=== PATIENT | male | born 1965 | race Caucasian/White ===

== ENCOUNTER 2017-10-29 14:30 | Outpatient (RCR) | payer OTHER, SELFPAY ==
--- NOTE | 2017-09-25 07:30 | PTTR_ITS ---
DATE: September 25, 2017 SUBJECTIVE: Santino is concerned because he has heard gossip and shared some discussions with his co-workers that he is going to be fired, because he is not getting back to work in time. He is wanting a 2nd orthopedic opinion as he does not feel he is being hurried along enough. He does state he does continue to have a fair amount of pain, but decreasing at night. He is walking as much as he can, but is taking some days off to cut back, to see if this influences his pain as I had suggested. OBJECTIVE: Patient Education: Reassured Santino that his progress is steady, it is appropriate, I felt that one ortho to another would agree. I reassure him that it takes time for a body to heal and there is no way to speed that up. 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 In any event, I do re-assure him that he is not in any physical condition to be carrying out the laborious duties of his job, but it certainly will be our goal to get him to that point. Manual therapy: ([id number]). Mobilized the R knee into end range flexion in open chain with grade 4 oscillations. Hamstring MET in conjunction with soft tissue mobilization along the medial knee, and distal medial quad, otherwise no further treatment performed by myself due to our discussion as above. Complete extension over pressure in LAQ position, have patient hold at end range for 10 secs after each oscillation for terminal knee extension control. GAIT: Ambulating with antalgia, decreased stance through the R LE, R trunk lean during R stance. He can toe and heel walk, however very well without hand held assist. I feel his gait is more due to his anxiety. He is ten seen by Tomasa Gracia PTA for Therex portion per my direction. Direct treatment time: 15 mins, ROM is 0 to 100 degrees. Total treatment time: 30 mins JH/dl
--- NOTE | 2017-09-30 08:00 | PTTR_ITS ---
DATE: September 30, 2017 SUBJECTIVE: Santino stating that his knee is feeling more stiff today. He is anticipating that his motion will be less. He seems less stress about his job, he is awaiting for his appt with Dr. Pablo mid September to have a formal letter provided to HR. Manual therapy: ([id number]). R knee flexion oscillations in seated position, grade 4+. Achieved 115 degrees of flexion today, remains 0 degrees extension easily. Therapeutic procedures ([id number]). * x See flow sheet: * x Provided skilled instruction in proper exercise performance: * x Provided skilled manual cues to facilitate proper muscle recruitment and/ or movement pattern: began step up and step down activities today and more close chain tasks with cueing for proper performance. Direct treatment time: 30 mins Total treatment time: 30 mins, continued care with Kemi Ivey PTA for remainder of his Therex routine per my direction (see her note) A: Great gains made today. Initially struggled with stairclimbing type activities, but with my cues and instruction he quickly built up confidence and had improved performance post treatment. I think this was a big step forward for him, and he is beginning to see he is moving in a forward direction. P: Proceed 3x a week for mobilization of R knee and strengthening efforts with progression of functional tasks as tolerated, and within pain tolerance. KRISTIN/priscila
--- NOTE | 2017-09-30 09:14 | PTTR_ITS ---
DATE: 09/30/17 OBJECTIVE: Co treatment with KRISTEL Bhatia. Please see her note for details. Therapeutic procedures ([id number]). * X See flow sheet: Progressed pt in LE strength and conditioning program. Included new core exercises per PT instruction to increase pt's functional movement and balance. * X Provided skilled instruction in proper exercise performance: Pt requires max verbal cueing when adding new exercise movements to program to ensure good form. * X Provided skilled manual cues to facilitate proper muscle recruitment and/ or movement pattern: Pt requires min tactile cueing on new exercises. * X Other: Vitals taken at end of session and recorded on flow sheet. Pt reports that his doctor would like us to begin monitoring vitals at start and end of each session due to some concern of possible HTN. Pt continued conditioning exercises under Wellness program, supervised by ehr trainer x15 minutes. Direct treatment time: 30 minutes Total treatment time: 45 minutes
--- NOTE | 2017-10-02 13:24 | PTTR_ITS ---
DATE: 10/02/17 OBJECTIVE: Co-treatment with KRISTEL Bhatia. Please see her note for specifics. Therapeutic procedures ([id number]). * X See flow sheet: For progressive LE strengthening to tolerance. Progress quad strengthening and squatting within his tolerance. He does complain of some knee discomfort with step ups and deeper squats although no discomfort through the quadriceps itself. * X Provided skilled instruction in proper exercise performance: * X Provided skilled manual cues to facilitate proper muscle recruitment and/ or movement pattern: * X Other: Ends program via wellness program. Direct treatment time: 30 minutes Total treatment time: 60 minutes Kemi Ivey, PHARMACEUTICAL SCIENTIST
--- NOTE | 2017-10-02 14:46 | PTTR_ITS ---
DATE: 10/02/17 SUBJECTIVE: Pt reports that he has had no pain increase following progressions last visit. He has been walking up to 2 miles per day on the [place] [employer] [place]. OBJECTIVE: Manual therapy: ([id number]). Seated flexion oscillations utilizing distraction and hamstring grade 4 to 4+. End range extension over pressure with pt initially having a difficult time with TKE. I complete some patella femoral mobilizations all planes for mechanoreceptor stimulation and he is able to per TKE without difficulty with minimal shaking. Prone knee bend quad stretching reaching about 90* of this position. Flexion ROM is 0-117*. Direct treatment time: 23 minutes Total treatment time: 23 minutes and then seen by Kemi Ivey PTA please refer to her note for specifics.
--- NOTE | 2017-10-05 08:57 | PTTR_ITS ---
DATE: 10/05/17 SUBJECTIVE: Santino is now walking up to 5 miles at a time for exercise, on uneven terrain. He continues to have pain at night time, but dissipating. He has been working on his stepups at home, but continues to struggle with general stair ambulation. OBJECTIVE: KX applied to all codes N/A Manual therapy: ([id number]): R knee flexion oscillations in seated position, grade 4+ R PF mobilizations all planes, followed by eccentric LAQ x 10, 0# R PKB prolonged stretching. HEP Reviewed lunge knee flexion stretch, utilizing chair or step. He was then seen by Tomasa Gracia PTA per my direction - see her note. Direct treatment time: 20 minutes Total treatment time: 20 minutes
--- NOTE | 2017-10-05 09:25 | PTTR_ITS ---
DATE: 10/05/17 OBJECTIVE: Co Treatment with PT Maritza Colin Therapeutic procedures ([id number]). * X Provided skilled instruction in proper exercise performance: Direct treatment time: Pt completed functional sit to stands without the use of his hands, open and closed chain LE strengthening, glute strengthening, SLS activities,wobble board, and cardio as per flow sheet. Pt's vitals were taken please see flow sheet for specifics. Total treatment time: 30 billable 60 total.
--- NOTE | 2017-10-07 08:36 | PTTR_ITS ---
DATE: 10/07/17 OBJECTIVE: Co Treatment with PT Maritza Colin Therapeutic procedures ([id number]). * X Provided skilled instruction in proper exercise performance: Pt completed open and closed chain LE strengthening, light proprioceptive ther ex, glute strengthening, lifting techniques with the weighted box, core stabilization, and cardio on the mini stepper/treadmill/Nu Step. Pt was able to tolerate a slight increase in his program today. Vitals were taken post session please see flow sheet for specifics. Direct treatment time: 30 Total treatment time: 60
--- NOTE | 2017-10-07 10:26 | PTTR_ITS ---
DATE: 10/07/17 SUBJECTIVE: No major complaints. Would like to have rock tape reapplied as this makes him feel more stable and reduces pain. He is ascending stairs reciprocally, coming down is more difficult, going one step at a time, using rail. OBJECTIVE: KX applied to all codes N/A Manual therapy: ([id number]). Seated R knee flexion oscillations, grade 4++ PF mobilizations all planes, grade 4++, which then allow for pain reduction with mobilization. Prolonged PKB Rock tape application R knee Therapeutic procedures ([id number]). * HEP review: * x See flow sheet: Continued completion with Tiffanie Gracia PTA per my direction , see her note. * x Provided skilled instruction in proper exercise performance: * x Provided skilled manual cues to facilitate proper muscle recruitment and/ or movement pattern: [] * [] Other: [] ROM: 0-120* Direct treatment time: 30 minutes Total treatment time: 30 minutes
--- NOTE | 2017-10-09 09:23 | PTTR_ITS ---
DATE: 10/09/17 SUBJECTIVE: Pt reports that he is sore from last session and thinks that he over did it on the treadmill. OBJECTIVE: Manual therapy: (70913v6). Pt received mobilization to the patella and was able to achieve 0 degrees knee ext. Pt while seated received mobilization to the knee into knee flexion. Pt was able to achieve 119 degrees knee flex after mobilization was performed. Pt was also mobilized into knee flexion while in the prone position. Pt received rock taping as per previous sessions. Therapeutic procedures ([id number]). * X Provided skilled instruction in proper exercise performance: Pt completed open and closed chain LE strengthening, glute strengthening, core stabilization, light proprioceptive ther ex, and cardio with the wellness. Pt was advised to not be as aggressive on the treadmill today. Direct treatment time: 45 Total treatment time: 60
--- NOTE | 2017-10-12 08:35 | PTTR_ITS ---
DATE: 10/12/17 SUBJECTIVE: Santino reporting that he tripped and landed on his hyperextended R knee on Thursday. He think he needs to go to the hospital, and has really hurt his knee. He has pain increase along the medial knee, of a 10/10. He has been able to walk on it, and function since the incident on Thursday, but has held off on long distance walking because of fear. He will have a follow up with Dr. Pablo on Thu. OBJECTIVE: KX applied to all codes N/A Gait: Minimally antalgic, walked at high speed upon request, with just hesitation. Toe and heel walk WNL. Functional movements: Deep squat, unweighted, with good ROM, no compensatory movements, no pain. R SL step up, with moderate UE assist. Sit to stand, no hands, WNL. Manual therapy: ([id number]). R knee flexion overpressure at end range, achieving 120*. Extension remains at 0 *. PF mobilization all planes for pain desensitization, as well as medial compartment desensitization. Demonstrates ability to due full terminal knee extension, with no indication of quad injury. No palpable quad disruption. Has excellent R quad recruitment, with visual muscle bulk, but less girth then the left side. No swelling, no increase in temperature. Transition from extension to flexion and vice versa, without difficulty. Therapeutic procedures ([id number]). * HEP review: * x See flow sheet: Progressed to include more deep squatting (unweighted) and SL step ups, to work toward gaining functional performance for pre for return to work. His program was finished with Tomasa Gracia PTA, per my directions. See her note for specifics. Direct treatment time: 30 minutes Total treatment time: 30 minutes Assessment: Explains hyperextension strain to the R knee, but without any clinical findings of further trauma of injury to the R knee. Patient's anxiety got the best of him, with fear of further of injury to the knee making him quite unsettled this morning. However, after clinical exam, I reassured him he was fine, and continuing to progress forward, which did allow patient to calm down. It is appropriate to continue progress ther ex at this point, with higher level activities, to include CKC squatting, step ups, proprioceptive activities , and CKC weight lifting for occupational preparation - per the clearance of Dr. Pablo on Thu. I also suggest work conditioning program, as soon as appropriate. Plan: 3x/week, per above ther ex plan, and continued end range flexion mobilization to regain full flexion, to insure full functional capabilities.
--- NOTE | 2017-10-12 09:37 | PTTR_ITS ---
DATE: 10/12/17 OBJECTIVE: This is a co tx with PT Sosa Colin please refer to her note for specifics. Therapeutic procedures ([id number]). Consisting of a therapeutic exercise program with open and closed chain LE strengthening, glute strengthening, sit to stand with deep squat and core stabilization activities and pt completed his cardiovascular exercise with the wellness with Christian. Direct treatment time: 30 minutes Total treatment time: 60 minutes
--- NOTE | 2017-10-14 10:25 | PTTR_ITS ---
DATE: 10/14/17 SUBJECTIVE: Santino feels his discomfort has decreased since the hyper extension strain he reported last session. He has returned to baseline, and is anxious for his appointment with Dr. Pablo today. Patient complains of his low back feeling strained, and some hip weakness after prolonged walking. He is walking to accommodate his right knee weakness. OBJECTIVE: ROM: 0 to 120 today Accessory motion: WNL and non irritable Gait: Minimally antalgic Observation: The patient is putting forth great effort. Manual therapy: ([id number]). Right knee flexion oscillations seated at edge of [facility] utilizing IASTM down regulation to the right quadriceps. Patellofemoral mobilizations all planes. Prone knee bend prolonged stretch. Instructed in lumbar and hip stretches, hamstring and calf stretches to accommodate the stiffness he has post walking. Therapeutic procedures ([id number]). * x See flow sheet: * Provided skilled cueing for proper exercise performance and progression of activities. Direct treatment time: 60 minutes Total treatment time: 60 minutes Assessment: The patient is progressing nicely. He is demonstrating whole body stability control, improved control of his right quadriceps, certainly so with more eccentric and proprioceptive type activities, as would be expected at this point. Will progress with his strengthening to his tolerance pending results of today' s appointment with Dr. Pablo. Plan: 3x per week for right knee mobilizations and strengthening progressing to Work Conditioning if this is requested. KRISTIN/allison
--- NOTE | 2017-10-16 08:41 | PTTR_ITS ---
DATE: 10/16/17 OBJECTIVE: Co-treatment with primary therapist, KRISTEL Bhatia. Please see her note for specifics. Therapeutic procedures ([id number]). * [X] See flow sheet: Patient completed a LE strengthening and stabilization program, as per flow sheet. Patient tolerated a progression in his program today with good tolerance. Incorporated single leg activities to facilitate stabilization throughout R knee, and enhance proprioceptive ability. Also incorporated lifting activities from low surfaces, with a focus on appropriate body mechanics and lifting techniques, as well as loading of R knee for strengthening. Vitals were taken pre and post exercise and recorded on the flow sheet. Patient completed the remainder of his ther ex program via Wellness Program under certified personal trainer supervision. * [X] Provided skilled instruction in proper exercise performance * [X] Provided skilled manual cues to facilitate proper muscle recruitment and/or movement pattern Direct treatment time: 35 minutes Total treatment time: 60 minutes
--- NOTE | 2017-10-16 08:56 | PTTR_ITS ---
DATE: 10/16/17 SUBJECTIVE: Will be returning to work, light duty, on Thursday per clearance of Dr. Pablo. Santino states was happy with his progress, but would prefer that he had more flexion at this point. Wants him to continue with PT efforts as he returns to work. He is able to walk, stand and sit unlimited, occasional climbing, and infrequently lift 100#. 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 In regards to his knee, he has minimal complaints today. OBJECTIVE: KX applied to all codes N/A Manual therapy: ([id number]). R knee flexion oscillations in 90/90 position and sitting at edge of plinth, grade 4++. PKB prolonged stretch, instruct patient in self PKB using strap. PF mobs. ROM: 0-125* He was then see by Jana Valentine PTA for ther ex portion of treatment per my direction. Assessment: ROM increased. Patient please with return to work status. Direct treatment time: 15 minutes Total treatment time: 15 minutes Plan: Per POC
--- NOTE | 2017-10-20 15:46 | PTTR_ITS ---
DATE: 10/20/17 SUBJECTIVE: Santino stating his knee feels a little fatigued and sore from going back to work. He is on work restrictions that are appropriate. OBJECTIVE: Manual therapy: ([id number]). TF joint mobs performed in seated position with legs over the edge of the plinth. Stretching into knee flexion to his tolerance. 90/90 stretching into knee flexion to 127 degrees. Patellar glides performed. Therapeutic procedures ([id number]). * X See flow sheet: For LE strength and conditioning focusing on quad strengthening, SLS and proprioceptive re-training and core stabilization. Add in mini lunges x 10 reps each with fatigue noted. * X Provided skilled instruction in proper exercise performance: * X Provided skilled manual cues to facilitate proper muscle recruitment and/ or movement pattern: * X Other: Ends with cardiovascular activities via hop strainer supervision. Vitals taken and recorded on flow sheet. Direct treatment time: 45 minutes Total treatment time: 75 minutes Kemi Ivey, DIRECTOR OF OCCUPATIONAL HEALTH
--- NOTE | 2017-10-23 16:14 | PTTR_ITS ---
DATE: 10/23/17 SUBJECTIVE: Pt reports that his knee has been sore this week since he is back to work. He reports that he is going to be working this weekend as well and it does not look like he is going to get a day off so it is a little much for the first week back. OBJECTIVE: Manual therapy: ([id number]). Pt received tibial femoral and patella femoral joint mobilization to the involved LE. Pt receive stretching into knee flexion while seated, supine, and prone. Pt was able to achieve approx 130 while supine. Pt received hamstring stretching. Therapeutic procedures ([id number]). * X Provided skilled instruction in proper exercise performance: Pt completed open and closed chain LE strengthening, glute strengthening, core stabilization ther ex, SLS activities vs airex, and cardio on the treadmill. We D/C the Nu Step due to it not being challenging anymore. Pt was fatigued after today's session. Direct treatment time: 45 Total treatment time: 55
--- NOTE | 2017-10-26 11:15 | NT_ITS ---
10/26/17 No showed for today's scheduled appt. KRISTIN/channing
--- NOTE | 2017-10-29 15:22 | PTTR_ITS ---
DATE: 10/29/17 SUBJECTIVE: Pt reports that they are really under staffed at work and he hasn' t had a day off yet. Pt reports that his knee is really sore. OBJECTIVE: Manual therapy: ([id number]). Pt received tibial femoral and patella femoral joint mobilization to the involved LE. Pt received ROM into knee flexion in both seated and supine positions. Pt was able to achieve 124 degrees knee flexion and 0 degrees knee extension. Therapeutic procedures ([id number]). * X Provided skilled instruction in proper exercise performance: Pt completed open and closed chain LE strengthening, glute strengthening, functional sit to stands, SLS activities, and cardio on the treadmill. Pt did require vc's for correction of his mechanics with his ther ex. Direct treatment time: 45 Total treatment time: 60
== END 2017-10-30 23:59 | disposition home or self-care (01) ==
LOC: PT 14:30
PROVIDERS: PCP Family Medicine; Referring Provider Orthopaedic Surgery; Visit Provider Orthopaedic Surgery
DX: S76.111D Strain of right quadriceps muscle, fascia and tendon, subsequent encounter (principal)
CPT/HCPCS: 97110; 97140

== ENCOUNTER 2017-12-16 21:26 | Emergency (ER) | payer OTHER, SELFPAY ==
[2017-12-16] VITALS (21 sets, daily range): BP systolic 95–118; BP diastolic 52–73; PULSE 89–128; RESP 8–23; TEMP 36.2–37.3; O2SAT 93–99
--- NOTE | 2017-12-16 21:41 | W.ED.GENAD ---
Discharge Plan Disposition Patient Disposition: HOME Condition: Stable Discharge Details Chief Complaint: Chest Pain Clinical Impression: Gastroenteritis, Dehydration, Pain, upper back Primary Care Provider: Rajwinder Garcia ED Provider: Jared Conroy Home Meds and New Rx's Prescriptions: New cyclobenzaprine 10 mg tablet 10 mg PO TID PRN (Reason: muscle spasm) Qty: 20 RF: 0 ondansetron 4 mg tablet,disintegrating 4 mg PO TID PRN (Reason: nausea and vomiting) 5 Days Qty: 14 RF: 0 Continue ibuprofen 800 MG tablet 800 mg PO TID Qty: 60 RF: 1 lisinopril 10 MG tablet 20 mg PO DAILY RF: 0 Discharge Instructions Instructions: Dehydration (ED), Gastroenteritis (ED) Additional Instructions: follow up with your primary care provider next week and have your kidney function rechecked make sure you are drinking plenty of fluids to stay hydrated if you have persistent vomit or severe worsening pain or difficulty breathing return to the emergency department Discharge Data Discharge Physician: Jared Conroy Medical Decision Making 52 yo male who has a hx of htn comes in with 4 days of upper abdominal pain and n/v along with diarrhea, and today luq pain and posterior thoracic pain. He states it feels as though his muscles are spasming. Denies fevers or recent travel. Is noted on exam to be tachycardic. ECG nondiagnostic, heart score is 2, will send troponin. Will also obtain imaging to eval for PE vs dissection vs sbo as cause of his symptoms. HE is asking for meds for anxiety and appears anxious so will provide this while studies are pending pt feels much better after ativan, still has some mild upper back pain, awaiting labs and imaging labs show wbc of 24 and chrissy. His CTA shows no acute findings, has borderline thoracic aneurysm without dissection and contacted gallbladder, has no pain in the ruq on exam and denies any abdominal pain now. He still has mild upper back pain. Given length of time with symptoms do not feel additional troponin indicated. I suspect given his n/v/d he could have had a gastroenteritis which led to his leukocytosis and dehydration. He is now drinking and eating without symptoms and has no pain in the abodmen or chest. Will dc home and advised f/u with pcp and have his renal function rechecked next week Differential Diagnosis sbo, acs, pe, dissection, hepatitis ECG Data Attestation: I personally reviewed and interpreted this ECG (s) as follows: Prior ECG tracings: available for review Interpretation: sinus tachycardia, rate of 121, pr normal at 130, no acute ischemic findings HPI General Mode of arrival: ambulatory. Date/Time Provider Initiated Documentation: 12/16/17 21:28. Limitations to Documentation: no limitations. Information obtained by: patient. History of Present Illness 52 year old M presents to the emergency department with the chief complaint of abdominal pain, described as moderate, Quality is described as stabbing, and is localized to the abdomen. Patient reports radiation to back. Patient started experiencing this hour(s) (6) No relieving factors improve symptom(s), No exacerbating factors reported . Patient notes no other symptoms.. Patient did receive the following treatments prior to arrival, none Related Data Home Medications Medication Instructions Recorded Confirmed lisinopril 20 mg PO DAILY 07/21/16 12/16/17 ibuprofen 800 mg PO TID #60 tab-cap 07/16/17 12/16/17 cyclobenzaprine 10 mg PO TID PRN #20 tab 12/16/17 ondansetron 4 mg PO TID PRN 5 Days #14 tab 12/16/17 Previous Rx's Medication Instructions Recorded cyclobenzaprine 10 mg PO TID PRN #20 tab 12/16/17 ondansetron 4 mg PO TID PRN 5 Days #14 tab 12/16/17 Allergies Allergy/AdvReac Type Severity Reaction Status Date / Time No Known Allergies Allergy Unverified 12/16/17 21:39 General Stated Complaint: Chest Pain MARKO: 2 Review of Systems Review of Systems All systems reviewed & are unremarkable except as noted in HPI and below Constitutional Denies chills, Denies fever(s) and Denies weakness Eyes Denies loss of vision ENT Denies change in voice Cardiovascular Denies dyspnea Respiratory Denies dyspnea Gastrointestinal Reports abdominal pain and Reports vomiting Genitourinary Denies dysuria Musculoskeletal Denies joint swelling Integumentary/Breasts Denies rash Neurologic Denies loss of vision and Denies weakness Psychiatric Denies depression Endocrine Denies cold intolerance and Denies heat intolerance Allergic/Immunologic Reports urticaria [facility] Medical History Anxiety Aortic stenosis Constipation Foot pain HTN (hypertension) Heart murmur, systolic Hx of adenomatous colonic polyps Jaw pain Obesity Palpitations Prediabetes Quadriceps tendon rupture Rectal bleeding Tinea pedis Social History Smoking/Tobacco Use Status: Never Surgical History Tonsillectomy Exam Const General: anxious Orientation: alert HENMT Head: normal to inspection Ears: external ears normal General nose exam: external nose normal Mouth: moist mucous membranes Eyes General: appearance normal, both eyes and all related structures Neck Neck: normal visual inspection Resp Effort & Inspection: normal respiratory effort and able to speak in complete sentences Cardio Rate: regular rate Skin General skin exam: no rashes or lesions noted Neuro General: alert and oriented x3 Extrem General: normal to inspection Psych Mental Status: mental status grossly normal Course Vital Signs Temperature 36.2 C L 12/16/17 21:32 Pulse 121 H 12/16/17 21:32 Respiratory Rate 22 12/16/17 21:32 Blood Pressure 106/62 12/16/17 21:32 Pulse Oximetry 96 12/16/17 21:32 Temperature 36.2 C L 12/16/17 21:32 Temperature Source Temporal Artery Scan 12/16/17 21:32 Pulse 121 H 12/16/17 21:32 Respiratory Rate 22 12/16/17 21:32 Respiratory Effort 12/16/17 21:37 Blood Pressure 106/62 12/16/17 21:32 Pulse Oximetry 96 12/16/17 21:32 Oxygen Delivery Method Room Air 12/16/17 21:32 Oxygen Flow Rate 0 12/16/17 21:32
--- NOTE | 2017-12-16 21:46 | ED.GENADUL_ITS ---
Discharge Plan Disposition Patient Disposition: HOME Condition: Stable Discharge Details Chief Complaint: Chest Pain Clinical Impression: Gastroenteritis, Dehydration, Pain, upper back Primary Care Provider: Rajwinder Garcia ED Provider: Jared Conroy Home Meds and New Rx's Prescriptions: New cyclobenzaprine 10 mg tablet 10 mg PO TID PRN (Reason: muscle spasm) Qty: 20 RF: 0 ondansetron 4 mg tablet,disintegrating 4 mg PO TID PRN (Reason: nausea and vomiting) 5 Days Qty: 14 RF: 0 Continue ibuprofen 800 MG tablet 800 mg PO TID Qty: 60 RF: 1 lisinopril 10 MG tablet 20 mg PO DAILY RF: 0 Discharge Instructions Instructions: Dehydration (ED), Gastroenteritis (ED) Additional Instructions: follow up with your primary care provider next week and have your kidney function rechecked make sure you are drinking plenty of fluids to stay hydrated if you have persistent vomit or severe worsening pain or difficulty breathing return to the emergency department Discharge Data Discharge Physician: Jared Conroy Medical Decision Making 52 yo male who has a hx of htn comes in with 4 days of upper abdominal pain and n/v along with diarrhea, and today luq pain and posterior thoracic pain. He states it feels as though his muscles are spasming. Denies fevers or recent travel. Is noted on exam to be tachycardic. ECG nondiagnostic, heart score is 2 , will send troponin. Will also obtain imaging to eval for PE vs dissection vs sbo as cause of his symptoms. HE is asking for meds for anxiety and appears anxious so will provide this while studies are pending pt feels much better after ativan, still has some mild upper back pain, awaiting labs and imaging labs show wbc of 24 and chrissy. His CTA shows no acute findings, has borderline thoracic aneurysm without dissection and contacted gallbladder, has no pain in the ruq on exam and denies any abdominal pain now. He still has mild upper back pain. Given length of time with symptoms do not feel additional troponin indicated. I suspect given his n/v/d he could have had a gastroenteritis which led to his leukocytosis and dehydration. He is now drinking and eating without symptoms and has no pain in the abodmen or chest. Will dc home and advised f/u with pcp and have his renal function rechecked next week Differential Diagnosis sbo, acs, pe, dissection, hepatitis ECG Data Attestation: I personally reviewed and interpreted this ECG (s) as follows: Prior ECG tracings: available for review Interpretation: sinus tachycardia, rate of 121, pr normal at 130, no acute ischemic findings HPI General Mode of arrival: ambulatory . Date/Time Provider Initiated Documentation: 12/16/17 21:28 . Limitations to Documentation: no limitations . Information obtained by: patient . History of Present Illness 52 year old M presents to the emergency department with the chief complaint of abdominal pain, described as moderate, Quality is described as stabbing, and is localized to the abdomen. Patient reports radiation to back. Patient started experiencing this hour(s) (6) No relieving factors improve symptom(s) , No exacerbating factors reported . Patient notes no other symptoms.. Patient did receive the following treatments prior to arrival, none Related Data Home Medications Medication Instructions Recorded Confirmed lisinopril 20 mg PO DAILY 07/21/16 12/16/17 ibuprofen 800 mg PO TID #60 tab-cap 07/16/17 12/16/17 cyclobenzaprine 10 mg PO TID PRN #20 tab 12/16/17 ondansetron 4 mg PO TID PRN 5 Days #14 tab 12/16/17 Previous Rx's Medication Instructions Recorded cyclobenzaprine 10 mg PO TID PRN #20 tab 12/16/17 ondansetron 4 mg PO TID PRN 5 Days #14 tab 12/16/17 Allergies Allergy/AdvReac Type Severity Reaction Status Date / Time No Known Allergies Allergy Unverified 12/16/17 21:39 General Stated Complaint: Chest Pain MARKO: 2 Review of Systems Review of Systems All systems reviewed & are unremarkable except as noted in HPI and below Constitutional Denies chills, Denies fever(s) and Denies weakness Eyes Denies loss of vision ENT Denies change in voice Cardiovascular Denies dyspnea Respiratory Denies dyspnea Gastrointestinal Reports abdominal pain and Reports vomiting Genitourinary Denies dysuria Musculoskeletal Denies joint swelling Integumentary/Breasts Denies rash Neurologic Denies loss of vision and Denies weakness Psychiatric Denies depression Endocrine Denies cold intolerance and Denies heat intolerance Allergic/Immunologic Reports urticaria [facility] Medical History Anxiety Aortic stenosis Constipation Foot pain HTN (hypertension) Heart murmur, systolic Hx of adenomatous colonic polyps Jaw pain Obesity Palpitations Prediabetes Quadriceps tendon rupture Rectal bleeding Tinea pedis Social History Smoking/Tobacco Use Status: Never Surgical History Tonsillectomy Exam Const General: anxious Orientation: alert HENMT Head: normal to inspection Ears: external ears normal General nose exam: external nose normal Mouth: moist mucous membranes Eyes General: appearance normal, both eyes and all related structures Neck Neck: normal visual inspection Resp Effort & Inspection: normal respiratory effort and able to speak in complete sentences Cardio Rate: regular rate Skin General skin exam: no rashes or lesions noted Neuro General: alert and oriented x3 Extrem General: normal to inspection Psych Mental Status: mental status grossly normal Course Vital Signs Temperature 36.2 C L 12/16/17 21:32 Pulse 121 H 12/16/17 21:32 Respiratory Rate 22 12/16/17 21:32 Blood Pressure 106/62 12/16/17 21:32 Pulse Oximetry 96 12/16/17 21:32 Temperature 36.2 C L 12/16/17 21:32 Temperature Source Temporal Artery Scan 12/16/17 21:32 Pulse 121 H 12/16/17 21:32 Respiratory Rate 22 12/16/17 21:32 Respiratory Effort 12/16/17 21:37 Blood Pressure 106/62 12/16/17 21:32 Pulse Oximetry 96 12/16/17 21:32 Oxygen Delivery Method Room Air 12/16/17 21:32 Oxygen Flow Rate 0 12/16/17 21:32
[2017-12-16] MEDS: LORazepam 2 MG/ML VIAL 0.5 MG IVP (21:55)
[2017-12-16 21:56] LABS: Abs Immature Grans 0.26 k/cumm (0.0-0.09); HCT 44.7 % (40.0-50.0); HGB 16.2 g/dL (13.5-17.5); Mean Corp. HGB Concentration 36.2 g/dL (32.0-36.0); Mean Corpuscular Hemoglobin 30.4 pg (27.0-33.0); Mean Corpuscular Volume 83.9 fL (80-95); Mean Platelet Volume 11.4 fL (8.0-11.0); Platelet Count 224 x1000/uL (130-400); RBC 5.33 m/cumm (4.50-6.00); RBC Distribution Width 13.8 % (11.8-14.1); White Blood Cell Count 24.02 k/cumm (4.4-10.8)
[2017-12-16] MEDS: Normal Saline 1,000 ML 1000 ML IV ×2 (21:57→22:49)
[2017-12-16] MEDS: Omnipaque 350 MG/ML 100 ML BTL IJ (22:15)
[2017-12-16 22:30] LABS: ALT 37 U/L (12-78); AST 17 U/L (15-37); Albumin 4.3 g/dL (3.4-5.0); Alkaline Phosphatase 95 U/L (46-116); Anion Gap 16.3 mmol/L (3-11); BUN 28 mg/dL (7-18); Bilirubin, Direct 0.19 mg/dL (0.00-0.20); Bilirubin, Total 0.9 mg/dL (0.2-1.0); CO2 22.7 mmol/L (21.0-32.0); CREATININE 3.22 mg/dL (0.70-1.30); Calcium 9.6 mg/dL (8.5-10.1); Chloride 98 mmol/L (98-107); Estimated GFR 20.27 (mL/min/1.73m2); Glucose 140 mg/dL (70-100); Lipase 140 U/L (73-393); Magnesium 1.6 mg/dL (1.8-2.4); Potassium 3.4 mmol/L (3.5-5.1); Sodium 137 mmol/L (136-145); Total Protein 7.5 g/dL (6.4-8.2)
--- NOTE | 2017-12-16 22:30 | DI.CT_ITS ---
SYMPTOM/DIAGNOSIS: CHEST AND ABD PAIN, ? DISSECTION CTA CHEST, ABDOMEN AND PELVIS: CT angiography was performed with multi slice acquisition and multi planar and 3D reconstruction . CHEST: The study was carried out with an intravenous administration of 125 cc' s of Omnipaque 350. There is no evidence of PE. There is borderline ascending thoracic aortic dilatation measuring perhaps 4 by 3.9 cm. without evidence of dissection. There are regions of bibasilar pulmonary atelectasis. No infiltrate or mass is seen. There is no pneumothorax or pleural effusion. The heart is not enlarged. No acute bony abnormality is seen. The soft tissues are unremarkable. There is no evidence of lymphadenopathy. ABDOMEN AND PELVIS: The study was carried out with an intravenous administration of 125 cc's of Omnipaque 350. There is no evidence of an abdominal aortic aneurysm or dissection. The abdominal vasculature appears to be intact with incidental note made of common origin of the celiac and superior mesenteric artery. The renal arteries appear unremarkable. The iliac arteries are unremarkable. There is no evidence of occlusion or stenosis involving the common femoral arteries. A fatty liver is identified. The gallbladder wall is mildly thickened however the gallbladder is only minimally distended and appears to be partially contracted. There is no evidence of biliary dilatation. The pancreas and spleen are unremarkable. The adrenals are normal. The kidneys are normal. The stomach and bowel appear intact. There is no evidence of obstruction or mucosal thickening. There is nothing to suggest an acute appendix. The bladder is incompletely distended but appears grossly normal. The reproductive organs as visualized are intact. There is no evidence of free air or free fluid in the intraperitoneal space. There is no evidence of an acute bony abnormality. The soft tissues are unremarkable. There is no lymphadenopathy. SUMMARY: No evidence of an abdominal aortic aneurysm or dissection. Note is made of questionable thickening of the gallbladder wall. No stones or ductal dilatation is identified. If clinically appropriate, the patient could be further evaluated with ultrasound.
[2017-12-16 22:33] LABS: Troponin I < 0.02 ng/mL (0.00-0.06)
[2017-12-16 22:40] LABS: Diff Comment Diff Reviewed
[2017-12-16 22:41] LABS: Absolute Lymphocyte Count 4.08 k/cumm (1.2-3.4); Absolute Monocyte Count 2.16 k/cumm (0.11-0.7); Absolute Neutrophil Count 17.77 k/cumm (1.2-6.7); Atypical Lymphocytes % 7; RBC Morphology Normal
[2017-12-16 22:54] LABS: INR 1.1 (1.0-3.5); Prothrombin Time 10.4 sec (9.3-10.8)
--- NOTE | 2017-12-16 23:07 | DI.VRAD_ITS ---
EXAM: CT Angiography Chest With Intravenous Contrast EXAM DATE/TIME: 12/16/2017 9:38 PM CLINICAL HISTORY: 52 years old, male; Pain; Chest pain; Type not specified; Abdominal pain; Acute; Patient HX: HX of aortic stenosis and HTN TECHNIQUE: Axial computed tomographic angiography images of the chest with intravenous contrast using CT angiography protocol. Coronal and sagittal reformatted images were created and reviewed. MIP reconstructed images were created and reviewed. CONTRAST: 125 ml of Omnipaque 350 administered intravenously. COMPARISON: No relevant prior studies available. FINDINGS: Pulmonary arteries: Normal. No pulmonary emboli. Aorta: Borderline ascending thoracic aortic aneurysm measures 4 x 3.9 cm without dissection. Lungs: Basilar dependent pulmonary atelectasis is present.. No consolidation. No masses. Pleural space: Normal. No pneumothorax. No pleural effusion. Heart: Normal. No cardiomegaly. No pericardial effusion. Bones/joints: Unremarkable. No acute fracture. Soft tissues: Unremarkable. Lymph nodes: Unremarkable. No enlarged lymph nodes. IMPRESSION: Borderline ascending thoracic aortic aneurysm measures 4 x 3.9 cm without dissection. EXAM: CT Angiography Abdomen and Pelvis With Intravenous Contrast EXAM DATE/TIME: 12/16/2017 9:38 PM CLINICAL HISTORY: 52 years old, male; Pain; Chest pain; Type not specified; Abdominal pain; Acute; Patient HX: HX of aortic stenosis and HTN TECHNIQUE: Axial computed tomographic angiography images of the abdomen and pelvis with intravenous contrast material, including non-contrast images if performed. MIP and/or 3D reconstructed images were created and reviewed. Coronal and sagittal reformatted images were created and reviewed. MIP reconstructed images were created and reviewed. CONTRAST: 125 ml of Omnipaque 350 administered intravenously. COMPARISON: No relevant prior studies available. FINDINGS: Lungs: Normal. No consolidation. VASCULATURE: Aorta: No evidence for abdominal aortic aneurysm or dissection. Celiac Trunk and Mesenteric Arteries: Incidental note made of common origin of the celiac and SMA Renal Arteries: No occlusion or significant stenosis. Iliac Arteries: No occlusion or significant stenosis. Common Femoral Arteries: No occlusion or significant stenosis. ABDOMEN: Liver: Hepatic steatosis is present. Gallbladder and bile ducts: The gallbladder wall is mildly thickened however the gallbladder is normal minimally distended, likely reflecting partial contraction. If right upper quadrant symptoms are present sonography is recommended. Pancreas: Unremarkable. No mass. No ductal dilation. Spleen: Unremarkable. No splenomegaly. Adrenals: Unremarkable. No mass. Kidneys and ureters: Unremarkable. No solid mass. No hydronephrosis. Stomach and bowel: Unremarkable. No obstruction. No mucosal thickening. Appendix: No evidence of appendicitis. PELVIS: Bladder: Unremarkable. No mass. Reproductive: Unremarkable as visualized. ABDOMEN and PELVIS: Intraperitoneal space: See Gallbladder And Bile Ducts Finding. Bones/joints: Lumbar spine degenerative disc disease is noted. Soft tissues: Unremarkable. Lymph nodes: Unremarkable. No enlarged lymph nodes. IMPRESSION: 1. No evidence for abdominal aortic aneurysm or dissection. 2. The gallbladder wall is mildly thickened however the gallbladder is normal minimally distended, likely reflecting partial contraction. If right upper quadrant symptoms are present sonography is recommended. Dictated and Authenticated by: Shar Rossi MD. Ordering:SHERRELL GARCIA MD
[2017-12-16] MEDS: Ondansetron O.D.T. 4 MG TABEF PO (23:43)
[2017-12-16] MEDS: Cyclobenzaprine 10 MG TAB PO (23:44)
--- NOTE | 2017-12-17 07:41 | CMPROGNOTE_ITS ---
Care Management Progress Note 12/17-Dr. Conroy requested assistance with a PCP (Jose) next week for dehydration and acute kidney injury. Referral faxed to [facility].
== END 2017-12-16 23:51 | disposition home or self-care (01) ==
PROVIDERS: Emergency Provider Emergency Medicine; PCP Family Medicine
DX: K52.9 Noninfective gastroenteritis and colitis, unspecified (principal); E86.0 Dehydration; M54.6 Pain in thoracic spine; E11.9 Type 2 diabetes mellitus without complications; I10 Essential (primary) hypertension
CPT/HCPCS: 36415; 74177; 80053; 80076; 83690; 93005; 96361; 96374; 99284; 83735; 84484; 85025; 85610; 93010; J2060; J3490

== ENCOUNTER 2017-12-24 10:47 | Outpatient (CLI) | payer OTHER, SELFPAY ==
[2017-12-24 11:38] LABS: Abs Immature Grans 0.11 k/cumm (0.0-0.09); HCT 40.1 % (40.0-50.0); HGB 13.8 g/dL (13.5-17.5); Mean Corp. HGB Concentration 34.4 g/dL (32.0-36.0); Mean Corpuscular Hemoglobin 30.4 pg (27.0-33.0); Mean Corpuscular Volume 88.3 fL (80-95); Mean Platelet Volume 11.4 fL (8.0-11.0); Platelet Count 181 x1000/uL (130-400); RBC 4.54 m/cumm (4.50-6.00); RBC Distribution Width 14.1 % (11.8-14.1); White Blood Cell Count 13.39 k/cumm (4.4-10.8)
[2017-12-24 12:00] LABS: Hemoglobin A1C 7.2 % (4.5-6.2)
[2017-12-24 12:17] LABS: Absolute Eosinophil Count 2.81 k/cumm (0.0-0.7); Absolute Lymphocyte Count 2.01 k/cumm (1.2-3.4); Absolute Monocyte Count 0.67 k/cumm (0.11-0.7); Absolute Neutrophil Count 7.36 k/cumm (1.2-6.7)
[2017-12-24 12:19] LABS: Diff Comment Manual Differential
[2017-12-24 12:28] LABS: ALT 42 U/L (12-78); AST 19 U/L (15-37); Albumin 3.6 g/dL (3.4-5.0); Alkaline Phosphatase 81 U/L (46-116); Anion Gap 9.1 mmol/L (3-11); BUN 13 mg/dL (7-18); Bilirubin, Total 0.5 mg/dL (0.2-1.0); CO2 29.9 mmol/L (21.0-32.0); CREATININE 1.22 mg/dL (0.70-1.30); Chloride 105 mmol/L (98-107); Glucose 129 mg/dL (70-100); Lipase 233 U/L (73-393); Potassium 3.8 mmol/L (3.5-5.1); Sodium 144 mmol/L (136-145); Total Protein 6.1 g/dL (6.4-8.2)
[2017-12-25 13:58] LABS: Syphilis Serology (RPR) Negative (Negative)
== END 2017-12-24 11:07 ==
PROVIDERS: PCP Family Medicine; Visit Provider Family Medicine
DX: R10.9 Unspecified abdominal pain (principal); R11.2 Nausea with vomiting, unspecified; R73.03 Prediabetes; I10 Essential (primary) hypertension
CPT/HCPCS: 36415; 80053; 83690; 83036; 85025; 86592

== ENCOUNTER 2017-12-25 00:42 | Outpatient (CLI) | payer BC, SELFPAY ==
--- NOTE | 2017-12-25 09:00 | DI.US_ITS ---
SYMPTOM/DIAGNOSIS: VOMITING,NAUSEA, ABD PAIN, F/U ABNL CT SHOWING WALL THICKENING ABDOMEN ULTRASOUND: Hepatic parenchyma appears mildly echogenic raising the possibility of hepatic steatosis. There is no evidence of cholelithiasis or biliary dilatation. Pancreas is unremarkable as visualized but the tail is not seen. The kidneys are normal in appearance except for an apparent echogenic mid pole right renal focus which could represent a small stone. No hydronephrosis is seen. Spleen is unremarkable in appearance. Aorta and IVC appear of normal diameter as seen. CONCLUSION: No evidence of cholelithiasis. Question hepatic steatosis. Probable non obstructing right renal calculus.
== END 2017-12-25 01:02 ==
PROVIDERS: PCP Family Medicine; Visit Provider Family Medicine
DX: R11.2 Nausea with vomiting, unspecified (principal); R10.9 Unspecified abdominal pain; K76.0 Fatty (change of) liver, not elsewhere classified
CPT/HCPCS: 76700

== ENCOUNTER 2018-08-18 11:55 | Outpatient (REF) | payer OTHER, SELFPAY ==
[2018-08-20 11:12] LABS: IgA 180 mg/dL (85-499); Interpretation SEE COMMENTS; Tissue Transglutaminase IgA <1.2 U/mL (<4.0)
== END 2018-08-18 12:15 ==
LOC: NCHCN 11:55
PROVIDERS: PCP Family Medicine; Visit Provider Family Medicine
DX: R19.7 Diarrhea, unspecified (principal); R11.2 Nausea with vomiting, unspecified; R10.9 Unspecified abdominal pain; R73.03 Prediabetes
CPT/HCPCS: 82784; 83516; 83036

== ENCOUNTER 2019-11-14 16:29 | Outpatient (REF) | payer OTHER, SELFPAY ==
[2019-11-14 20:12] LABS: COMMENT (LAB VIEW ONLY) 50.82 mg/dL; Microalb ug/mg Crea 10.4 ug/mg Cr
== END 2019-11-14 16:49 ==
LOC: NCHCN 16:29
PROVIDERS: PCP Family Medicine; Visit Provider Family Medicine
DX: E11.65 Type 2 diabetes mellitus with hyperglycemia (principal)
CPT/HCPCS: 82043; 82570

== ENCOUNTER 2019-12-19 01:13 | Outpatient (CLI) | payer OTHER, SELFPAY ==
--- NOTE | 2019-12-19 13:52 | DI.US_ITS ---
APPROVED REPORT EXAM: Comprehensive 2D, Doppler, and color-flow Echocardiogram Patient Location: Out-Patient Grinder Lap: Carissa Sinha RDCS (AE) Indications: Aortic Stenosis Other Information Study Quality: Adequate Conclusion Left Ventricle : The left ventricle is normal size. The left ventricular systolic function is normal. The left ventricular ejection fraction is within the normal range. There is normal left ventricular wall thickness. There is normal LV segmental wall motion. The left ventricular diastolic function is normal. LVEF is 50-55%. Right Ventricle : The right ventricle is normal size. The right ventricular systolic function is norm al. Atria : The left atrium size is normal. The right atrium size is normal. Aortic Valve : Aortic valve is calcified. Aortic valve is trileaflet. Trace aortic regurgitation. Mil d aortic stenosis. Peak aortic valve gradient is 24.1mmHg. Highest mean aortic valve gradient is 17.2 mmHg. Calculated JAMA by the continuity equation is 1.38cm2. Mitral Valve : Mild mitral annular calcification. No evidence of mitral valve stenosis. Trace mitral regurgitation. Great Vessels : The ascending aorta is moderately dilated (4cm). Aortic arch is normal in caliber. IV C is normal in size and collapses >50% with inspiration. Compared to study from 08/25/2017, there is no significant change. Wall motion Left Ventricle The left ventricle is normal size. The left ventricular systolic function is normal. The left ventric ular ejection fraction is within the normal range. There is normal left ventricular wall thickness. T here is normal LV segmental wall motion. The left ventricular diastolic function is normal. There is no ventricular septal defect visualized. LVEF is 50-55%. Right Ventricle The right ventricle is normal size. The right ventricular systolic function is normal. Atria The left atrium size is normal. The right atrium size is normal. The interatrial septum is intact wit h no evidence for an atrial septal defect. Aortic Valve Aortic valve is calcified. Aortic valve is trileaflet. Mild aortic stenosis. Peak aortic valve gradie nt is 24.1mmHg. Highest mean aortic valve gradient is 17.2mmHg. Calculated JAMA by the continuity equa tion is 1.38cm2. Trace aortic regurgitation. Mitral Valve Mild mitral annular calcification. No evidence of mitral valve stenosis. Trace mitral regurgitation. Tricuspid Valve The tricuspid valve is normal in structure. There is no tricuspid valve stenosis. Trace tricuspid reg urgitation. Unable to assess PA pressure. Pulmonic Valve The pulmonary valve is normal in structure. There is no pulmonic valvular stenosis. Trace pulmonic re gurgitation. Great Vessels The aortic root is normal in size. The ascending aorta is moderately dilated (4cm). Aortic arch is no rmal in caliber. IVC is normal in size and collapses >50% with inspiration. Pericardium There is no pericardial effusion. 2D Dimensions IVSD d PLAX 1.00 cm M: 0.6-1.2 LV Vol A2C d MOD 148.9 mL LVPW d PLAX 1.00 cm M: 0.6 - 1.2 LV Vol A4C d MOD 130.8 mL LVID d PLAX 4.42 cm M: 4.2 - 5.8 LA vol/ BSA A2C s A-L 18.3 mL/m2 LVDs 3.30 cm M: 2.5 - 4.0 LA vol/ BSA A4C s A-L 15.7 mL/m2 Ao Root d 3.18 cm M: 3.1 - 3.7 LA Vol/ BSA Biplane s A-L 17.2 mL/m2 Ao Asc Diam d 4.00 cm M: 2.6 - 3.4 LA Area A4C s MOD 13.25 cm2 LV EF Teichholz 50.2 % LA Area A2C s MOD 14.54 cm2 LVEF (Luna's) 52.57 % M: 52 - 72 LV EF A4C MOD 53.9 % LV Volume 102.49 mL M: 62 - 150 LV EF A2C MOD 51.1 % LV Volume Index 45.34 mL/m2 M: 34 - 74 LV EF Biplane MOD 52.6 % LV Vol Biplane MOD 142.1 mL SV 74.68 mL FS 25.30 % SV Index 33.07 mL/m2 M-Mode TAPSE 2.20 cm (M/F) >1.7 LV Diastology MV E' medial 0.072 (>0.07 m/s) E/A Ratio 0.7 LV E/e MED 9.40 (<14) MV E Vmax 0.67 (0.4-1.3 m/s) MV E' lateral 0.093 (>0.1 m/s) MV A Vmax 0.95 (0.4-1.3 m/s) LV E/e LAT 7.25 (<14) MV E/A Ratio 0.70 MV E/E' medial 9.41 MV E/E' lateral 7.26 Aortic Valve LVOT Area 3.51 cm2 AoV Area Vmax 1.38 cm2 LVOT Vmax 0.96 m/s AoV Area/ BSA (Vmax) 0.61 cm2/m2 LVOT Mean Arnie. 0.61 m/s JAMA Mean Arnie. 1.05 cm2 LVOT Peak Grad 3.7 mmHg JAMA Mean Arnie. Index 0.46 cm2/m2 LVOT Mean Grad 1.8 mmHg LVOT VTI 0.182 m LVOT Diam s 2.10 cm AoV Vmax 2.45 m/s Velocity Ratio 0.39 AoV Mean Arnie. 2.03 m/s AoV Peak Grad 24.1 mmHg LVOT SV 63.93 mL AoV Mean Grad 17.2 mmHg AoV VTI 0.506 m AoV Area VTI 1.26 cm2 AoV Area/ BSA (VTI) 0.56 cm/m2 Mitral Valve MV DT 202 (160-240 msec) MV PHT 58 msec MV Area PHT 3.76 cm2 Pulmonary Valve PV Vmax 1.26 (0.5-1.5 m/s) RVOT Peak Gr. 1.22 mmHg PV Peak Grad 6.3 mmHg RVOT Mean Gr. 0.65 mmHg PV Mean Grad 2.5 mmHg RVOT VTI 0.106 m PV VTI 0.195 m RVOT Vmax 0.55 m/s
== END 2019-12-19 01:33 ==
PROVIDERS: PCP Family Medicine; Visit Provider Family Medicine
DX: I35.0 Nonrheumatic aortic (valve) stenosis (principal)
CPT/HCPCS: 93306

== ENCOUNTER 2020-01-27 02:48 | Outpatient (CLI) | payer OTHER, SELFPAY ==
--- NOTE | 2020-01-27 07:52 | DI.RAD_ITS ---
EXAM: XR HAND RT COMPLETE CLINICAL HISTORY: THUMB PAIN RT, M79.644, AT SITE OF POSSIBLE SPLINTER, ? FOREIGN BODY. TECHNIQUE: 2D digital imaging was performed. COMPARISON: No exams were available for comparison FINDINGS: Three views of the right hand reveal no evidence for acute fracture or dislocation.. Just volar to t he middle phalanx of the 3rd-middle finger there is a 1 millimeter density seen on the lateral view o f questionable significance. No overlying skin defect seen. IMPRESSION: No fracture. 1 millimeter density in the 30-middle finger as described above, possibly significant. Only seen on the lateral view. DATA REPOSITORY: RADIATION DOSE DELIVERED:
== END 2020-01-27 03:08 ==
PROVIDERS: PCP Family Medicine; Visit Provider Family Medicine
DX: M79.644 Pain in right finger(s) (principal)
CPT/HCPCS: 73130

== ENCOUNTER 2020-05-21 15:41 | Outpatient (REF) | payer OTHER, SELFPAY ==
[2020-05-21 18:44] LABS: Anion Gap 10.4 mmol/L (3-11); BUN 18 mg/dL (7-18); CO2 27.6 mmol/L (21.0-32.0); CREATININE 1.1 mg/dL (0.70-1.30); Calcium 9.2 mg/dL (8.5-10.1); Chloride 102 mmol/L (98-107); Glucose 124 mg/dL (74-106); Potassium 4.1 mmol/L (3.5-5.1); Sodium 140 mmol/L (136-145)
== END 2020-05-21 15:42 | disposition home or self-care (01) ==
LOC: NCHCN 15:41
PROVIDERS: PCP Family Medicine; Visit Provider Family Medicine
DX: I10 Essential (primary) hypertension (principal)
CPT/HCPCS: 80048

== ENCOUNTER 2020-10-30 20:26 | Emergency (ER) | payer OTHER, SELFPAY ==
[2020-10-30 20:40] VITALS: BP 152/89; PULSE 77; RESP 18; TEMP 36.4; O2SAT 97
--- NOTE | 2020-10-30 21:16 | ED.GENADUL_ITS ---
Discharge Plan Disposition Patient Disposition: HOME Condition: Stable Discharge Details Clinical Impression: External otitis of right ear Primary Care Provider: Rajwinder Garcia ED Provider: Jared Conroy Home Meds and New Rx's Prescriptions: New levofloxacin 750 mg tablet 750 mg PO DAILY Qty: 6 RF: 0 Continued ibuprofen 800 MG tablet 800 mg PO TID Qty: 60 RF: 1 lisinopril 10 mg tablet 40 mg PO DAILY RF: 0 metformin 500 mg tablet 500 mg PO DAILY RF: 0 aspirin 81 mg tablet,delayed release (DR/EC) 81 mg PO DAILY RF: 0 Discharge Instructions Instructions: Otitis Externa (ED) Additional Instructions: follow up with your dentist as scheduled follow up with your primary care provider within a week if you feel more ill, have severe worsening pain or fevers return to the emergency department use the ear drops twice a day in the right ear for 7 days or until the bottle is finished Medical Decision Making 55 yo male with 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 He states he did swim a few days prior to the ear hurting, denies falls or trauma. He then earlier today had a tooth pulled from the right upper posterior mouth and still has ear pain so came here for an evaluation. Denies fevers and is in no distress on exam. He has no bleeding in the mouth and post op blood clot in the posterior right upper molar area, no swelling, normal posterior pharynx with midline uvula, no submandibular swelling and no pain over hyoid or restricted neck movements, speaking in full sentences and swallowing normally. Both external mastoids appear normal. Let tm and external auditory meatus appear normal, right external auditory canal on the right is swollen and can't visualize the tm that well. I suspect otitis exeterna that hasn't been treated. Will start on topical drops and oral meds since I'm not sure the drops will be able to penetrate deeply enough at this point. He has no fevers and appears well so do not feel CT indicated at this time for malignant otitis externa. Will d/c and have him f/u with pcp, return precautions given Differential Diagnosis Differential Diagnosis: otitis externa, post op pain, otitis media HPI General Mode of arrival: ambulatory . Date/Time Provider Initiated Documentation: 10/30/20 20:57 . Limitations to Documentation: no limitations . Information obtained by: patient . History of Present Illness 55 year old M presents to the emergency department with the chief complaint of right ear pain, described as moderate, Patient started experiencing this week(s) (2) and it has been constant. No relieving factors improve symptom(s), No exacerbating factors reported . Patient notes no other symptoms.. Patient did receive the following treatments prior to arrival, none Related Data Home Medications Medication Instructions Recorded Confirmed ibuprofen 800 mg PO TID #60 tab-cap 07/16/17 10/30/20 aspirin 81 mg tablet,delayed 81 mg PO DAILY 02/08/20 10/30/20 release lisinopril 10 mg tablet 40 mg PO DAILY tab 02/08/20 10/30/20 metformin 500 mg tablet 500 mg PO DAILY 02/08/20 10/30/20 levofloxacin 750 mg PO DAILY #6 tab 10/30/20 Previous Rx's Medication Instructions Recorded levofloxacin 750 mg PO DAILY #6 tab 10/30/20 Allergies Allergy/AdvReac Type Severity Reaction Status Date / Time No Known Allergies Allergy Verified 10/30/20 20:58 General Stated Complaint: EarProblem MARKO: 4 Review of Systems All systems reviewed & are unremarkable except as noted in HPI and below Constitutional Constitutional: Denies chills, Denies fever(s) and Denies weakness Cardiovascular Cardiovascular: Denies chest pain and Denies dyspnea Respiratory Respiratory: Denies cough and Denies dyspnea Gastrointestinal Gastrointestinal: Denies abdominal pain, Denies nausea and Denies vomiting Musculoskeletal Musculoskeletal: Denies joint swelling Neurologic Neurologic: Denies weakness [facility] Medical History (Updated 10/30/20 @ 21:23 by Jared Conroy MD) Anxiety Aortic stenosis Constipation Diabetes mellitus Foot pain Heart murmur, systolic HTN (hypertension) Hx of adenomatous colonic polyps Jaw pain Obesity Palpitations Prediabetes Quadriceps tendon rupture Rectal bleeding Tinea pedis Surgical History (Updated 12/16/17 @ 14:34 by [employer] [place]) Tonsillectomy Social History Smoking/Tobacco Use Status: Never Smoking risk assessment performed?: Yes Alcohol Intake: current Alcohol Intake frequency: a few times a week Drug use: Never Substance use type: does not use Do you feel safe at home: Yes Do you feel safe in your relationship?: Yes Exam Const General: no acute distress Orientation: alert HENMT Head: normal to inspection Ears: TM normal on the left General nose exam: external nose normal Mouth: moist mucous membranes Eyes General: appearance normal, both eyes and all related structures Neck Neck: normal visual inspection Resp Effort & Inspection: normal respiratory effort and able to speak in complete sentences Cardio Rate: regular rate Skin General skin exam: no rashes or lesions noted Neuro General: patient alert and patient oriented x3 Extrem General: normal to inspection Psych Mental Status: mental status grossly normal Course Vital Signs Vital signs: Vital Signs Temperature 36.4 C L 10/30/20 20:40 Pulse 77 10/30/20 20:40 Respiratory Rate 18 10/30/20 20:40 Blood Pressure 152/89 H 10/30/20 20:40 Pulse Oximetry 97 10/30/20 20:40 Temperature 36.4 C L 10/30/20 20:40 Temperature Source Temporal Artery Scan 10/30/20 20:40 Pulse 77 10/30/20 20:40 Respiratory Rate 18 10/30/20 20:40 Respiratory Effort Non-Labored 10/30/20 20:59 Blood Pressure 152/89 H 10/30/20 20:40 Blood Pressure Position Sitting 10/30/20 20:40 Pulse Oximetry 97 10/30/20 20:40 Oxygen Delivery Method Room Air 10/30/20 20:40 Oxygen Flow Rate 0 10/30/20 20:40 Pain Level 9 10/30/20 20:40
[2020-10-30] MEDS: levoFLOXacin 500 MG, levoFLOXacin 250 MG 750 MG PO (21:25)
[2020-10-30] MEDS: Ciprofloxacin/Dexameth. 7.5 ML BTL AD (21:30)
== END 2020-10-30 21:31 | disposition home or self-care (01) ==
PROVIDERS: Emergency Provider Emergency Medicine; PCP Family Medicine
DX: H60.91 Unspecified otitis externa, right ear (principal)
CPT/HCPCS: 99283

== ENCOUNTER 2020-12-03 16:26 | Outpatient (REF) | payer OTHER, SELFPAY ==
[2020-12-03 20:50] LABS: COMMENT (LAB VIEW ONLY) 180.15 mg/dL; Microalb ug/mg Crea 5.6 ug/mg Cr
== END 2020-12-03 16:27 | disposition home or self-care (01) ==
LOC: NCHCN 16:26
PROVIDERS: PCP Family Medicine; Visit Provider Family Medicine
DX: E11.65 Type 2 diabetes mellitus with hyperglycemia (principal)
CPT/HCPCS: 82043; 82570

== ENCOUNTER 2020-12-21 17:20 | Emergency (ER) | payer OTHER, SELFPAY ==
[2020-12-21] VITALS (15 sets, daily range): BP systolic 153–166; BP diastolic 83–102; PULSE 78–98; RESP 17–24; TEMP 36.5; O2SAT 96–97
--- NOTE | 2020-12-21 17:45 | RT.EKG_ITS ---
APPROVED REPORT Exam: Resting ECG Reason for Exam: dizzy Patient Location: E HR:92 bpm ECG Measurements Heart Rate 92 AXIS TX 155 P 32 QRSd 104 QRS 19 QT 358 T 5 QTc 443 Conclusion Sinus rhythm...normal P axis, V-rate 60- 99
--- NOTE | 2020-12-21 18:04 | ED.GENADUL_ITS ---
Discharge Plan Disposition Patient Disposition: HOME Condition: Stable Discharge Details Clinical Impression: Mastoiditis Primary Care Provider: Rajwinder Garcia ED Provider: Von Dela Cruz Home Meds and New Rx's Prescriptions: New amoxicillin-pot clavulanate [Augmentin] 875-125 mg tablet 1 tab PO BID Qty: 20 RF: 0 Continued ibuprofen 800 MG tablet 800 mg PO TID Qty: 60 RF: 1 lisinopril 10 mg tablet 40 mg PO DAILY RF: 0 metformin 500 mg tablet 500 mg PO DAILY RF: 0 Levemir FlexTouch U-100 Insuln 100 unit/mL (3 mL) insulin pen 100 unit SUBCUT RF: 0 Jardiance 10 mg tablet 10 mg RF: 0 Discharge Instructions Instructions: Mastoiditis (ED) Additional Instructions: Laboratory values do not reveal any obvious emergent process but your CT imaging is concerning for potential mastoiditis. Augmentin as directed. [id number]-gyb-[id number] Tylenol and/or Motrin as directed for discomfort. Please watch for new or worsening symptoms and return to the ER for any concerns. I have placed you on the care management list to help expedite primary care follow-up on Thursday, this is imperative. You may need additional antibiotics, referral to ENT, and potentially admission for IV antibiotics if symptoms were to persist. Discharge Data Discharge Date/Time-TO BE ENTERED AT DEPARTURE: 12/21/20 20:59 Medical Decision Making 55-year-old gentleman complaining of right-sided facial symptoms ear pain, jaw pain, headache, lightheadedness described as a dizziness for what sounds like at least a couple of months. Able to review his records, she was treated with Levaquin at the end of September for ear infection. I do believe this is likely very true infectious process, he does have mastoid tenderness, but raises this suspicion of mastoiditis, will obtain concerning head ct, routine laboratory values given his lightheadedness and dizziness, I would like to obtain an EKG. Patient will be given IV fluid, Tylenol, p.o. meclizine Laboratory values reveal mild no leukocytosis of 13 6 4 no evidence of anemia. Platelet count 140. Electrolytes unremarkable. Creatinine 1.1 with a GFR greater than. Magnesium 2.0, troponin less than 0.05. TSH 1.45. CT imaging concerning for potential mastoiditis. Given his mild nonspecific leukocytosis, having already been on Levaquin at the end of September, his ongoing symptoms, I will discuss case with our hospitalist team about potential admission. Case discussed with Dr. Hinton, who did not feel as though the patient requires admission. He recommended initiating oral Augmentin therapy and close outpatient follow-up. Patient was given his first dose of Augmentin here in the ER. I placed him on the care management list to help expedite outpatient primary care follow-up promptly on Thursday. Strict discharge and return precautions were provided. This documentation was generated using [employer] system, please disregard any oddities of phrase or misspellings. Medical Records Medical records reviewed: Yes I reviewed the patient's medical records. Imaging Data Radiologic Study: Attestation: I personally reviewed and interpreted this imaging study as follows: Imaging: CT Scan Radiologist's impression: PROCEDURE INFORMATION: Exam: CT Head Without Contrast Exam date and time: 12/21/2020 6:23 PM Age: 55 years old Clinical indication: Other: JOHNSON, dizzy TECHNIQUE: Imaging protocol: Computed tomography of the head without contrast. COMPARISON: No relevant prior studies available. FINDINGS: Brain: No acute intracranial hemorrhage, mass-effect, midline shift, or extra- axial collection is seen. The chamorro white matter differentiation appears preserved. Cerebral ventricles: The ventricular system and basilar cisterns appear appropriate in size and configuration. Paranasal sinuses: The paranasal sinuses appear well aerated. No air-fluid levels are seen. Mastoid air cells: There is partial opacification of the right mastoid air cells. The left mastoid air cells appear clear. Auditory system: The middle ear cavities appear clear. Orbital cavity: The globes and intraorbital structures appear grossly intact. Bones/joints: The bony calvarium appears intact. No depressed skull fracture is seen. Soft tissues: No significant scalp lesion is seen. IMPRESSION: 1. No acute intracranial abnormality seen. 2. Partial right mastoid opacification. Clinical correlation is recommended to distinguish an effusion from mastoiditis. Thank you for allowing us to participat Lab Data Lab results reviewed: Yes I reviewed the patient's lab results. Labs: Laboratory Tests Range/Units 12/21/20 12/21/20 12/21/20 18:05 18:05 18:05 WBC (4.4-10.8) 10^3/uL 13.64 H RBC (4.36-5.78) 10^6/uL 4.76 Hgb (13.5-17.5) g/dL 14.1 Hct (40.0-50.0) % 41.5 MCV (80-95) fL 87.2 MCH (27.0-33.0) pg 29.6 MCHC (32.0-36.0) % 34.0 RDW (11.8-14.1) % 13.0 Plt Count (130-400) 10^3/uL 140 MPV (8.0-11.0) fL 11.5 H Immature Gran % 0.8 Neutrophils % 77.8 Lymphocytes % 13.6 Monocytes % 5.9 Eosinophils % 1.5 Basophils % 0.4 Nucleated RBC % % 0 Absolute Neutrophils (1.2-6.7) 10^3/uL 10.61 H Absolute Lymphocytes (1.2-3.4) 10^3/uL 1.86 Absolute Monocytes (0.1-0.8) 10^3/uL 0.80 Absolute Eosinophils (0.0-0.7) 10^3/uL 0.20 Absolute Basophils (0.0-0.2) 10^3/uL 0.05 Sodium (136-145) mmol/L 143 Potassium (3.5-5.1) mmol/L 3.9 Chloride (98-107) mmol/L 105 Carbon Dioxide (21.0-32.0) mmol/L 30.1 Anion Gap (3-11) mmol/L 7.9 BUN (7-18) mg/dL 17 Creatinine (0.70-1.30) mg/dL 1.1 Estimated GFR/1.73 m2 (mL/min/1.73m2) >= 60.00 Glucose (74-106) mg/dL 186 H Calcium (8.5-10.1) mg/dL 9.7 Magnesium (1.8-2.4) mg/dL 2.0 Total Bilirubin (0.2-1.0) mg/dL 0.7 AST (15-37) U/L 14 L ALT (16-63) U/L 28 Alkaline Phosphatase (46-116) U/L 65 Troponin I (<0.06) ng/mL < 0.05 Total Protein (6.4-8.2) g/dL 7.2 Albumin (3.4-5.0) g/dL 4.4 TSH (0.36-3.74) uIU/mL 1.45 ECG Data Attestation: I personally reviewed and interpreted this ECG (s) as follows: Interpretation: See official report by Dr. Conroy. Sinus rhythm, ventricular rate of 92, no STEMI. HPI General Mode of arrival: ambulatory . Date/Time Provider Initiated Documentation: 12/21/20 18:04 . Limitations to Documentation: no limitations . Information obtained by: patient . HPI Narrative: This is a 55-year-old gentleman with a past medical history that includes anxiety, aortic stenosis, diabetes, hypertension, who unfortunately is a rather vague and poor historian regarding his symptoms, times and dates, presenting to the ER this evening for further evaluation of multiple symptoms, primarily concerned that he may have a dental ear infection, right-sided face pain, occasionally feeling lightheaded and dizzy like he feels off balance but not truly like the room is spinning. Later he does tell me that he feels like the room is spinning. He tells me that the symptoms have been going on for couple months and he was initially seen by his dentist and had a right upper dental extraction performed, symptoms did not get better subsequently treated with antibiotics for a right inner ear infection, symptoms slightly improved but did not resolve completely and then later was seen in the ER at [place] for similar symptoms. Patient reports a mild dull global headache, denies fever, visual changes, neck pain, sore throat, chest pain, abdominal pain nausea vomiting, tingling, weakness. He did try yuba-wva-mdlczvi anti-inflammatories did seem to help some but those medications no longer help. Related Data Home Medications Medication Instructions Recorded Confirmed ibuprofen 800 mg PO TID #60 tab-cap 07/16/17 12/21/20 lisinopril 10 mg tablet 40 mg PO DAILY tab 02/08/20 12/21/20 metformin 500 mg tablet 500 mg PO DAILY 02/08/20 12/21/20 Jardiance 10 mg 12/21/20 Levemir FlexTouch U-100 Insuln 100 unit SUBCUT 12/21/20 amoxicillin-pot clavulanate 1 tab PO BID #20 tab 12/21/20 [Augmentin] Previous Rx's Medication Instructions Recorded amoxicillin-pot clavulanate 1 tab PO BID #20 tab 12/21/20 [Augmentin] Allergies Allergy/AdvReac Type Severity Reaction Status Date / Time No Known Allergies Allergy Verified 12/21/20 17:51 General Stated Complaint: Dizzy/Sync MARKO: 2 Review of Systems Constitutional Constitutional: Denies fever(s) and Reports headache(s) Eyes Eyes: Denies change in vision ENT Ears, Nose, Mouth, and Throat: Reports headache(s) and Denies neck pain Cardiovascular Cardiovascular: Denies chest pain and Denies dyspnea Respiratory Respiratory: Denies cough and Denies dyspnea Gastrointestinal Gastrointestinal: Denies abdominal pain, Denies nausea and Denies vomiting Genitourinary Genitourinary: Denies dysuria Musculoskeletal Musculoskeletal: Denies back pain and Denies neck pain Integumentary/Breasts Skin/Breast: Denies rash Neurologic Neurologic: Reports headache(s) [facility] Medical History Anxiety Aortic stenosis Constipation Diabetes mellitus Foot pain Heart murmur, systolic HTN (hypertension) Hx of adenomatous colonic polyps Jaw pain Obesity Palpitations Prediabetes Quadriceps tendon rupture Rectal bleeding Tinea pedis Surgical History Tonsillectomy Social History Smoking/Tobacco Use Status: Never Smoking risk assessment performed?: Yes Alcohol Intake: current Alcohol Intake frequency: a few times a week Drug use: Never Substance use type: does not use Do you feel safe at home: Yes Do you feel safe in your relationship?: Yes Exam Const General: cooperative, healthy appearing, comfortable and no acute distress Orientation: alert, awake and oriented x3 HENMT Head: normal to inspection, no palpable skull fracture, normocephalic and atraumatic Ears: external ears normal, TM's normal bilaterally, TM normal on the right and mastoid abnormal (Mild discomfort, right mastoid) General nose exam: external nose normal Face and sinus: normal facial exam Mouth: oral mucosae normal and moist mucous membranes Teeth and gingiva: dentition normal and other (No evidence of dry socket or abscess) Throat: posterior oropharynx normal Eyes General: appearance normal, both eyes and all related structures Alignment and Position: alignment normal Periorbital: periorbital findings normal Eyelids: eyelids normal Conjunctivae: conjunctivae normal Sclera: sclerae normal Cornea: corneas normal Pupils: PERRL EOM: EOM intact bilaterally Direct ophthalmoscopy: normal light reflex Other: No nystagmus Neck Neck: normal visual inspection, full ROM, no lymphadenopathy, no meningeal signs, trachea midline, supple and nontender Resp Effort & Inspection: normal respiratory effort and able to speak in complete sentences Auscultation: clear to auscultation bilaterally Cardio Rate: regular rate Rhythm: regular rhythm GI Palpation: soft and nontender Back/Spine/Pelvis Back: no CVA tenderness and No back tenderness Skin General skin exam: no rashes or lesions noted Neuro General: patient alert, patient awake, patient oriented x3, moves all extremities and no focal motor deficits Cranial Nerves: CN's II-XI intact bilaterally Cognition: normal cognition Speech: speech normal Gait: normal gait Motor: muscle tone normal throughout, no movement abnormalities noted and no fasciculations Sensory Exam: no sensory deficits noted Extrem General: normal to inspection, full ROM and capillary refill normal Psych Appearance: grossly normal Mental Status: mental status grossly normal Course Vital Signs Vital signs: Respiratory Effort Non-Labored 12/21/20 17:53 Respiratory Depth Normal 12/21/20 17:53 Respiratory Pattern Normal 12/21/20 17:53 Pain Level 7 12/21/20 17:48 Comment 12/21/20 17:48 PAWSS Have you Been Recently Intoxicated or Drunk Within the Last 30 days?: No Have you Ever Experienced Previous Episodes of Alcohol Withdrawal?: No Have you ever Experienced Withdrawal Seizures?: No Have you ever Experienced Delirium Tremens(DT)s?: No Have you ever undergone Alcohol Rehabilitation Treatment (i.e, inpt ot outpatient treatment programs)?: No Have you ever Experienced Blackouts?: No Have you ever Combined Alcohol with other Downers within the last 90 days?: No Have you ever Combined Alcohol with any other Substance of Abuse during the last 90 days?: No Positive Blood Alcohol level on Presentation? [PCS.BAL]: No Evidence of Increased Autonomic Activity (i.e. HR>120, tremor, sweating, agitation, nausea)?: No Result: 0
--- NOTE | 2020-12-21 18:15 | DI.CT_ITS ---
Exam(s) CT HEAD WO EXAM: CT HEAD WO CLINICAL HISTORY: JOHNSON/DIzzy. TECHNIQUE: Imaging Protocol: Axial computed tomography images with coronal and sagittal reformatted images were created and reviewed COMPARISON: No exams were available for comparison FINDINGS: Ventricles and Extra axial spaces: Normal in size and morphology for the patient's age. Hemorrhage: None. Cerebral parenchyma: Normal. Midline shift: None. Brainstem/Cerebellum: Normal. Calvarium: Normal. Visualized Paranasal sinuses: Clear. Mastoids: mild right effusion. No bony destruction. Soft Tissues: Unremarkable. IMPRESSION: No acute intracranial process. RADIATION DOSE DELIVERED: 917.93mGy.cm Total DLP DATA REPOSITORY: All CT scans at this facility are submitted to the National Radiology Data Registry (NRDR) Dose Index Registry (DIR) with the [employer] (A[employer]). RADIATION OPTIMIZATION: All CT scans at this facility use at least one of these dose optimization te chniques: automated exposure control; mA and/or kV adjustment per patient size (includes targeted exa ms where dose is matched to clinical indication); or iterative reconstruction.
[2020-12-21] MEDS: Meclizine 25 MG TAB PO (18:30)
[2020-12-21 18:37] LABS: Abs Immature Grans 0.11 10^3/uL (0.0-0.06); Absolute Basophil Count 0.05 10^3/uL (0.0-0.2); Absolute Lymphocyte Count 1.86 10^3/uL (1.2-3.4); Absolute Neutrophil Count 10.61 10^3/uL (1.2-6.7); Basophils % 0.4; Eosinophils % 1.5; HCT 41.5 % (40.0-50.0); HGB 14.1 g/dL (13.5-17.5); Immature Grans % 0.8; Lymphocytes % 13.6; MCH 29.6 pg (27.0-33.0); MCV 87.2 fL (80-95); MPV 11.5 fL (8.0-11.0); Monocytes % 5.9; Neutrophils % 77.8; Nucleated RBC 0 %; RBC 4.76 10^6/uL (4.36-5.78); RDW-SD 40.7 fL; WBC 13.64 10^3/uL (4.4-10.8)
[2020-12-21] MEDS: ACETAMINOPHEN 1,000 MG/100 ML BTL 400 MG IVPB (18:54)
[2020-12-21 18:55] LABS: ALT 28 U/L (16-63); AST 14 U/L (15-37); Albumin 4.4 g/dL (3.4-5.0); Alkaline Phosphatase 65 U/L (46-116); Anion Gap 7.9 mmol/L (3-11); BUN 17 mg/dL (7-18); Bilirubin, Total 0.7 mg/dL (0.2-1.0); CO2 30.1 mmol/L (21.0-32.0); CREATININE 1.1 mg/dL (0.70-1.30); Calcium 9.7 mg/dL (8.5-10.1); Chloride 105 mmol/L (98-107); Glucose 186 mg/dL (74-106); Potassium 3.9 mmol/L (3.5-5.1); Sodium 143 mmol/L (136-145); Total Protein 7.2 g/dL (6.4-8.2)
[2020-12-21] MEDS: Normal Saline 1,000 ML 1000 ML IV (18:55)
[2020-12-21 18:59] LABS: Troponin I < 0.05 ng/mL (<0.06)
[2020-12-21 19:02] LABS: Platelet Count 140 10^3/uL (130-400)
[2020-12-21 19:03] LABS: TSH 1.45 uIU/mL (0.36-3.74)
--- NOTE | 2020-12-21 19:32 | DI.VRAD_ITS ---
PROCEDURE INFORMATION: Exam: CT Head Without Contrast Exam date and time: 12/21/2020 6:23 PM Age: 55 years old Clinical indication: Other: JOHNSON, dizzy TECHNIQUE: Imaging protocol: Computed tomography of the head without contrast. COMPARISON: No relevant prior studies available. FINDINGS: Brain: No acute intracranial hemorrhage, mass-effect, midline shift, or extra-axial collection is seen. The chamorro white matter differentiation appears preserved. Cerebral ventricles: The ventricular system and basilar cisterns appear appropriate in size and configuration. Paranasal sinuses: The paranasal sinuses appear well aerated. No air-fluid levels are seen. Mastoid air cells: There is partial opacification of the right mastoid air cells. The left mastoid air cells appear clear. Auditory system: The middle ear cavities appear clear. Orbital cavity: The globes and intraorbital structures appear grossly intact. Bones/joints: The bony calvarium appears intact. No depressed skull fracture is seen. Soft tissues: No significant scalp lesion is seen. IMPRESSION: 1. No acute intracranial abnormality seen. 2. Partial right mastoid opacification. Clinical correlation is recommended to distinguish an effusion from mastoiditis. Dictated and Authenticated by: Andrea Skaggs MD. Ordering:NANNETTE Longoria MD
--- NOTE | 2020-12-21 20:39 | NUR.NOTE ---
Referral faxed to [facility]-Dr. Garcia to f/u on Thursday12/24/20. Mastoiditis.Nursing Note:
[2020-12-21] MEDS: Amoxicillin 875/Clav. 125 TAB PO (20:47)
== END 2020-12-21 20:59 | disposition home or self-care (01) ==
PROVIDERS: Emergency Provider Physician Assistant; PCP Family Medicine
DX: H70.001 Acute mastoiditis without complications, right ear (principal); E11.9 Type 2 diabetes mellitus without complications
CPT/HCPCS: 36415; 80053; 93005; 96361; 96365; 99284; 70450; 83735; 84443; 84484; 85025; 93010; J0131

== ENCOUNTER 2021-06-23 06:36 | Emergency (ER) | payer OTHER, SELFPAY ==
[2021-06-23 06:41] VITALS: BP 167/94; PULSE 95; RESP 16; TEMP 36.6; O2SAT 97
[2021-06-23 06:46] VITALS: RESP 16
--- NOTE | 2021-06-23 07:08 | W.ED.GENAD ---
Discharge Plan Disposition Patient Disposition: STILL A PATIENT Condition: Good Discharge Details Clinical Impression: Depression Primary Care Provider: Rajwinder Garcia ED Provider: Virgilio Hennessy Home Meds and New Rx's Prescriptions: No Action ibuprofen 800 MG tablet 800 mg PO TID Qty: 60 1RF lisinopril 10 mg tablet 40 mg PO DAILY 0RF Label Comments: 8.15.18 pt states current dose is 40mg qday.HE fluoxetine 40 mg capsule 40 mg PO DAILY 0RF Label Comments: TAKE ONE CAPSULE BY MOUTH EVERY DAY glimepiride 2 mg tablet 2 mg PO DAILY 0RF Levemir FlexTouch U-100 Insuln 100 unit/mL (3 mL) insulin pen 100 unit SUBCUT 0RF Medical Decision Making This is a pleasant 56-year-old male with a past medical history of type 2 diabetes, hypertension, and depression who presents today for evaluation of depression. Patient states that he is struggled with depression in the past, but he has never tried to harm himself or others. He states that he has had notable increase in stressors in his life, and at work. He lives home alone, he states that he has no friends or family in the area. He does have some family which she states he cannot trust out in [place]. Over the last 4 months he has not been in contact with his counselor can at all. He was prescribed fluoxetine, but he has not been taking it as he states it made him feel better he was concerned that if it made him feel that much better he may take too much secondary to his addictive personality. 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 He has been explicitly clear that he does not want his senior business development manager to repeat previous to his medical conditions here. He denies any homicidal or suicidal ideation. He denies any IV or illicit drug use. He did drink a single beer last night. He denies auditory or visual hallucinations. No other complaints at this time. No other modifying factors. Physical exam demonstrates a very sad and tearful male. Patient is open to admission or discharge he has a good safety plan Formulated. We will perform a screening assessment, we will contact mental health system to evaluate the patient, will monitor closely and reassess. Patient will be signed out to my colleague Dr. Monet Bishop for follow-up mental health evaluation. HPI General Date/Time Provider Initiated Documentation: 06/23/21 06:49. HPI Narrative: This is a pleasant 56-year-old male with a past medical history of type 2 diabetes, hypertension, and depression who presents today for evaluation of depression. Patient states that he is struggled with depression in the past, but he has never tried to harm himself or others. He states that he has had notable increase in stressors in his life, and at work. He lives home alone, he states that he has no friends or family in the area. He does have some family which she states he cannot trust out in [place]. Over the last 4 months he has not been in contact with his counselor can at all. He was prescribed fluoxetine, but he has not been taking it as he states it made him feel better he was concerned that if it made him feel that much better he may take too much secondary to his addictive personality. 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 He has been explicitly clear that he does not want his senior business development manager to repeat previous to his medical conditions here. He denies any homicidal or suicidal ideation. He denies any IV or illicit drug use. He did drink a single beer last night. He denies auditory or visual hallucinations. No other complaints at this time. No other modifying factors. Related Data Home Medications Medication Instructions Recorded Confirmed ibuprofen 800 mg tablet 800 mg PO TID #60 tab-cap 07/16/17 12/21/20 lisinopril 10 mg tablet 40 mg PO DAILY tab 02/08/20 12/21/20 insulin detemir U-100 100 unit/mL 100 unit SUBCUT 12/21/20 (3 mL) subcutaneous pen (Levemir FlexTouch U-100 Insulin) fluoxetine 40 mg capsule 40 mg PO DAILY 06/23/21 06/23/21 glimepiride 2 mg tablet 2 mg PO DAILY 06/23/21 06/23/21 Allergies Allergy/AdvReac Type Severity Reaction Status Date / Time No Known Allergies Allergy Verified 06/23/21 06:44 General Stated Complaint: Anxiety MARKO: 2 Review of Systems All systems reviewed & are unremarkable except as noted in HPI and below PFSH All Active Problems (Updated 06/23/21 @ 07:14 by Virgilio Hennessy DO) External otitis of right ear (Acute) Mastoiditis (Acute) Depression (Chronic) Medical History Anxiety Aortic stenosis Constipation Diabetes mellitus Foot pain Heart murmur, systolic HTN (hypertension) Hx of adenomatous colonic polyps Jaw pain Obesity Palpitations Prediabetes Quadriceps tendon rupture Rectal bleeding Tinea pedis Surgical History Tonsillectomy Social History Smoking/Tobacco Use Status: Never Smoking risk assessment performed?: Yes Alcohol Intake: current Alcohol Intake frequency: a few times a week Alcohol type: beer and hard liquor Drug use: Never Substance use type: does not use Do you feel safe at home: Yes Do you feel safe in your relationship?: No Exam Narrative Exam Narrative: 1.Const: Well-nourished, Well-developed, appearing stated age 2.Eyes: PERRL, no conjunctival injection, and symmetrical lids. 3.ENT: Atraumatic external nose and ears. Moist MM. Neck: Symmetric, trachea midline, No thyromegaly. 4.CVS: +S1/S2, No murmurs or gallops. Peripheral pulses 2+ and equal in all extremities. Brisk capillary refill in all extremities. 5.RESP: Unlabored respiratory effort. Clear to auscultation bilaterally. No wheezes rales or rhonchi 6.GI: Soft, Nontender/Nondistended, No hepatosplenomegaly. No guarding or rebound. 7.MSK: Normocephalic/Atraumatic, Extremities w/o deformity or ttp No cyanosis or clubbing, Normal movement of all extremities 8.Skin: Warm, Dry. No rashes or lesions. 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 Sensation grossly intact, no focal neurologic deficits. 10.Psych: (AAO) x3. Notably sad and tearful Course Vital Signs Vital signs: Vital Signs Temperature 36.6 C 06/23/21 06:41 Pulse 95 H 06/23/21 06:41 Respiratory Rate 16 06/23/21 06:41 Blood Pressure 167/94 H 06/23/21 06:41 Pulse Oximetry 97 06/23/21 06:41 Temperature 36.6 C 06/23/21 06:41 Pulse 95 H 06/23/21 06:41 Respiratory Rate 16 06/23/21 06:46 Respiratory Effort Non-Labored 06/23/21 06:46 Respiratory Depth Normal 06/23/21 06:46 Respiratory Pattern Normal 06/23/21 06:46 Blood Pressure 167/94 H 06/23/21 06:41 Blood Pressure Position Sitting 06/23/21 06:41 Pulse Oximetry 97 06/23/21 06:41 Pain Level 0 06/23/21 06:41
[2021-06-23 07:49] LABS: Abs Immature Grans 0.07 10^3/uL (0.0-0.06); Absolute Basophil Count 0.07 10^3/uL (0.0-0.2); Absolute Eosinophil Count 0.16 10^3/uL (0.0-0.7); Absolute Lymphocyte Count 1.75 10^3/uL (1.2-3.4); Absolute Monocyte Count 0.59 10^3/uL (0.1-0.8); Absolute Neutrophil Count 8.92 10^3/uL (1.2-6.7); Basophils % 0.6; Eosinophils % 1.4; HCT 47.1 % (40.0-50.0); HGB 16.3 g/dL (13.5-17.5); Immature Grans % 0.6; Lymphocytes % 15.1; MCH 29.2 pg (27.0-33.0); MCHC 34.6 % (32.0-36.0); MCV 84.3 fL (80-95); MPV 11.1 fL (8.0-11.0); Monocytes % 5.1; Neutrophils % 77.2; Platelet Count 145 10^3/uL (130-400); RBC 5.59 10^6/uL (4.36-5.78); RDW 12.3 % (11.8-14.1); RDW-SD 37.7 fL; Source Nasal/Nares; WBC 11.56 10^3/uL (4.4-10.8)
[2021-06-23 08:15] LABS: ALT 37 U/L (16-63); AST 15 U/L (15-37); Albumin 4.3 g/dL (3.4-5.0); Alkaline Phosphatase 86 U/L (46-116); Anion Gap 9.5 mmol/L (3-11); BUN 15 mg/dL (7-18); Bilirubin, Total 0.5 mg/dL (0.2-1.0); CO2 25.5 mmol/L (21.0-32.0); Calcium 9.1 mg/dL (8.5-10.1); Chloride 103 mmol/L (98-107); ETHANOL BLOOD < 3.0 mg/dL (<10); Glucose 241 mg/dL (74-106); Potassium 3.8 mmol/L (3.5-5.1); Sodium 138 mmol/L (136-145); TSH (W/Ref FT4) 1.03 uIU/mL (0.36-3.74); Total Protein 7.4 g/dL (6.4-8.2)
--- NOTE | 2021-06-23 08:19 | ED.PROG_ITS ---
Date of service: 06/23/21 Time of Service: 08:20 Medical Decision Making 0800 --please see Dr. Hennessy's note for initial presentation, exam and plan. Case endorsed to follow-up with mental health after their pt evaluation Just prior to my endorsement, Edie with [facility] evaluated patient at bedside and cleared him for discharge home with plan for care bed. Dr. Hennessy spoke with patient in the room and he is refusing to go home stating he does not feel safe. He is denying any suicidal homicidal ideation. Discussed with Kriss with [facility] and they will reevaluate. Labs reviewed and unremarkable. 0845 --Kriss with [facility] evaluated patient at bedside and he is cleared for discharge to home. He denies any suicidal or homicidal ideation. Patient feels comfortable with this plan. Kriss will call pt this evening at 6pm and do another face to face interaction per pt's request. Patient is requesting a work note stating he will not be ready to return to work until he feels mentally ready and cleared by mental health. Plan is for care bed tomorrow. Patient feels comfortable with this plan. Usual and customary return precautions given prior to discharge. Medical Records Medical records reviewed: Yes I reviewed the patient's medical records. Lab Data Lab results reviewed: Yes I reviewed the patient's lab results. Labs: Laboratory Tests Range/Units 06/23/21 06/23/21 06/23/21 07:25 07:25 07:25 WBC (4.4-10.8) 10^3/uL RBC (4.36-5.78) 10^6/uL Hgb (13.5-17.5) g/dL Hct (40.0-50.0) % MCV (80-95) fL MCH (27.0-33.0) pg MCHC (32.0-36.0) % RDW (11.8-14.1) % Plt Count (130-400) 10^3/uL MPV (8.0-11.0) fL Immature Gran % Neutrophils % Lymphocytes % Monocytes % Eosinophils % Basophils % Nucleated RBC % (0.0-0.3) % Absolute Neutrophils (1.2-6.7) 10^3/uL Absolute Lymphocytes (1.2-3.4) 10^3/uL Absolute Monocytes (0.1-0.8) 10^3/uL Absolute Eosinophils (0.0-0.7) 10^3/uL Absolute Basophils (0.0-0.2) 10^3/uL Sodium (136-145) mmol/L 138 Potassium (3.5-5.1) mmol/L 3.8 Chloride (98-107) mmol/L 103 Carbon Dioxide (21.0-32.0) mmol/L 25.5 Anion Gap (3-11) mmol/L 9.5 BUN (7-18) mg/dL 15 Creatinine (0.70-1.30) mg/dL 1.0 Estimated GFR/1.73 m2 (mL/min/1.73m2) >= 60.00 Glucose (74-106) mg/dL 241 H Calcium (8.5-10.1) mg/dL 9.1 Total Bilirubin (0.2-1.0) mg/dL 0.5 AST (15-37) U/L 15 ALT (16-63) U/L 37 Alkaline Phosphatase (46-116) U/L 86 Total Protein (6.4-8.2) g/dL 7.4 Albumin (3.4-5.0) g/dL 4.3 TSH (0.36-3.74) uIU/mL 1.03 Salicylates (<2.8) mg/dL < 2.8 Acetaminophen (10-30) ug/mL < 2 Ethyl Alcohol (<10) mg/dL < 3.0 COVID-19 Source Nasal/Nares SARS-CoV-2 (PCR) (Negative) Negative Range/Units 06/23/21 06/23/21 07:25 07:25 WBC (4.4-10.8) 10^3/uL 11.56 H RBC (4.36-5.78) 10^6/uL 5.59 Hgb (13.5-17.5) g/dL 16.3 Hct (40.0-50.0) % 47.1 MCV (80-95) fL 84.3 MCH (27.0-33.0) pg 29.2 MCHC (32.0-36.0) % 34.6 RDW (11.8-14.1) % 12.3 Plt Count (130-400) 10^3/uL 145 MPV (8.0-11.0) fL 11.1 H Immature Gran % 0.6 Neutrophils % 77.2 Lymphocytes % 15.1 Monocytes % 5.1 Eosinophils % 1.4 Basophils % 0.6 Nucleated RBC % (0.0-0.3) % 0.0 Absolute Neutrophils (1.2-6.7) 10^3/uL 8.92 H Absolute Lymphocytes (1.2-3.4) 10^3/uL 1.75 Absolute Monocytes (0.1-0.8) 10^3/uL 0.59 Absolute Eosinophils (0.0-0.7) 10^3/uL 0.16 Absolute Basophils (0.0-0.2) 10^3/uL 0.07 Sodium (136-145) mmol/L Potassium (3.5-5.1) mmol/L Chloride (98-107) mmol/L Carbon Dioxide (21.0-32.0) mmol/L Anion Gap (3-11) mmol/L BUN (7-18) mg/dL Creatinine (0.70-1.30) mg/dL Estimated GFR/1.73 m2 (mL/min/1.73m2) Glucose (74-106) mg/dL Calcium (8.5-10.1) mg/dL Total Bilirubin (0.2-1.0) mg/dL AST (15-37) U/L ALT (16-63) U/L Alkaline Phosphatase (46-116) U/L Total Protein (6.4-8.2) g/dL Albumin (3.4-5.0) g/dL TSH (0.36-3.74) uIU/mL Cancelled Salicylates (<2.8) mg/dL Acetaminophen (10-30) ug/mL Ethyl Alcohol (<10) mg/dL Cancelled COVID-19 Source SARS-CoV-2 (PCR) (Negative) Sign Out Sign Out Data: Sign Out Comment: Depression, not suicidal, not homicidal. Awaiting mental health reassessment. Last updated by Virgilio Hennessy DO at 06/23/21 07:33 Discharge Plan Disposition Patient Disposition: HOME Condition: Stable Discharge Details Clinical Impression: Depression, Anxiety Primary Care Provider: Rajwinder Garcia ED Provider: Monet Bishop Home Meds and New Rx's Prescriptions: Continued ibuprofen 800 MG tablet 800 mg PO TID Qty: 60 1RF lisinopril 10 mg tablet 40 mg PO DAILY 0RF Label Comments: 8.15.18 pt states current dose is 40mg qday.HE fluoxetine 40 mg capsule 40 mg PO DAILY 0RF Label Comments: TAKE ONE CAPSULE BY MOUTH EVERY DAY glimepiride 2 mg tablet 2 mg PO DAILY 0RF Levemir FlexTouch U-100 Insuln 100 unit/mL (3 mL) insulin pen 100 unit SUBCUT 0RF Discharge Instructions Instructions: Depression (ED), Anxiety (ED) Additional Instructions: Kriss with [facility] will call you later today at 6 PM. The plan is for you to go to a care bed tomorrow. You can follow-up with [facility] human services at any time at [phone]. Return immediately to the emergency department if you develop any worsening or new concerning symptoms. Stand Alone Forms: Work Release Discharge Data Discharge Date/Time-TO BE ENTERED AT DEPARTURE: 06/23/21 09:47 Discharge Physician: Monet Bishop
--- NOTE | 2021-06-23 08:20 | NUR.NOTE ---
Nursing Note:Pt on Zoom with Kriss from [facility]
[2021-06-23 08:21] LABS: Salicylate < 2.8 mg/dL (<2.8)
[2021-06-23 08:22] LABS: Acetaminophen < 2 ug/mL (10-30)
[2021-06-23 08:26] LABS: COVID-19 PCR Negative (Negative)
[2021-06-23 10:22] LABS: *AMPHETAMINES SCREEN URINE Negative (Negative); *BARBITURATES SCREEN URINE Negative (Negative); *BENZODIAZEPINES SCREEN URINE Negative (Negative); Cannabinoids THC Negative (Negative); Cocaine Screen,Urine Negative (Negative); METHADONE URINE SCREEN Negative (Negative); OPIATES URINE SCREEN Negative (Negative); Tricyclic Antidepressants Negative (Negative)
--- NOTE | 2021-06-23 14:14 | NUR.NOTE ---
Nursing Note:Called Pt because when he discharged home Pt's Glimperide 2mg got left behind at ER. Spoke with Pt and he was adamant that it was not a medication he takes anymore he only uses the insulin for his blood sugar. Pt requested nursing just dispose of the medication. Nursing spoke with pharmacy and their suggestion was to place in the med disposal box in the [facility] that is provided by the hospital for anyone. Pharmacist was kind enough to grab med and place in box on a trip down to ER.
== END 2021-06-23 09:47 | disposition home or self-care (01) ==
PROVIDERS: Student in an Organized Health Care Education/Training Program; Emergency Provider Physician Assistant; PCP Family Medicine
DX: F32.A Depression, unspecified (principal); Z60.8 Other problems related to social environment; Z56.89 Other problems related to employment; Z79.899 Other long term (current) drug therapy
CPT/HCPCS: 80053; 80307; 87635; 99283; 80320; 80329; 84443; 85025

== ENCOUNTER 2021-09-19 16:34 | Outpatient (REF) | payer OTHER, SELFPAY ==
[2021-09-19 15:51] LABS: COMMENT (LAB VIEW ONLY) 354.79 mg/dL
[2021-09-19 16:18] LABS: Microalb ug/mg Crea 4.7 ug/mg Cr
== END 2021-09-19 16:35 | disposition home or self-care (01) ==
LOC: NCHCN 16:34
PROVIDERS: PCP Family Medicine; Visit Provider Family Medicine
DX: E11.65 Type 2 diabetes mellitus with hyperglycemia (principal)
CPT/HCPCS: 82043; 82570

== ENCOUNTER 2022-01-06 09:40 | Emergency (ER) | payer OTHER, SELFPAY ==
[2022-01-06 09:58] VITALS: BP 154/81; PULSE 79; RESP 16; TEMP 36.6; O2SAT 98
--- NOTE | 2022-01-06 10:15 | ED.GENADUL_ITS ---
Discharge Plan Disposition Patient Disposition: HOME Condition: Stable Discharge Details Clinical Impression: Pain, dental Primary Care Provider: Rajwinder Garcia ED Provider: Casandra Dunn Home Meds and New Rx's Prescriptions: New clindamycin HCl 150 mg capsule 450 mg PO TID Qty: 90 0RF oxycodone 5 mg capsule 5 mg PO Q8H PRNQty: 7 0RF Continued ibuprofen 800 MG tablet 800 mg PO TID Qty: 60 lisinopril 10 mg tablet 40 mg PO DAILY Label Comments: 8 pt states current dose is 40mg qday.HE fluoxetine 40 mg capsule 40 mg PO DAILY Label Comments: TAKE ONE CAPSULE BY MOUTH EVERY DAY glimepiride 2 mg tablet 2 mg PO DAILY Levemir FlexTouch U-100 Insuln 100 unit/mL (3 mL) insulin pen 100 unit SUBCUT Discharge Instructions Instructions: Toothache (ED) Additional Instructions: Take antibiotic as prescribed Take oxycodone sparingly, this medication is addictive Follow-up with your dentist at your scheduled appointment smooth foods as tolerated Tylenol as needed for pain Referrals: Rajwinder Garcia MD [Primary Care Provider] - Discharge Data Discharge Date/Time-TO BE ENTERED AT DEPARTURE: 01/06/22 10:47 Medical Decision Making We will treat patient for dental abscess with clindamycin No evidence of deep space infection, no trismus Stable for discharge home at this time, has an appointment with dentist in 2 weeks Alert, oriented, return precautions reviewed Medical Records Medical records reviewed: Yes I reviewed the patient's medical records. Lab Data Lab results reviewed: Yes I reviewed the patient's lab results. HPI General Date/Time Provider Initiated Documentation: 01/06/22 09:57 . HPI Narrative: This 56-year-old male with history of diabetes presents with dental pain which started 2 weeks ago worsening today. Denies any fever or chills. Denies any difficulty swallowing. Denies chest pain or shortness of breath. Denies any nausea or vomiting. Related Data Home Medications Medication Instructions Recorded Confirmed ibuprofen 800 mg tablet 800 mg PO TID #60 tab-caps 07/16/17 01/06/22 lisinopril 10 mg tablet 40 mg PO DAILY 02/08/20 01/06/22 insulin detemir U-100 100 unit/mL 100 unit subcut 12/21/20 (3 mL) subcutaneous pen (Levemir FlexTouch U-100 Insulin) fluoxetine 40 mg capsule 40 mg PO DAILY 06/23/21 01/06/22 glimepiride 2 mg tablet 2 mg PO DAILY 06/23/21 01/06/22 clindamycin HCl 150 mg capsule 450 mg PO TID #90 caps 01/06/22 oxycodone 5 mg capsule 5 mg PO Q8H PRN #7 caps 01/06/22 Previous Rx's Medication Instructions Recorded clindamycin HCl 150 mg capsule 450 mg PO TID #90 caps 01/06/22 oxycodone 5 mg capsule 5 mg PO Q8H PRN #7 caps 01/06/22 Allergies Allergy/AdvReac Type Severity Reaction Status Date / Time No Known Allergies Allergy Verified 01/06/22 10:02 General Stated Complaint: DentalOral MARKO: 4 Review of Systems All systems reviewed & are unremarkable except as noted in HPI and below PFSH All Active Problems (Updated 01/06/22 @ 10:19 by PAT Mayen) External otitis of right ear (Acute) Mastoiditis (Acute) Pain, dental (Acute) Medical History Anxiety Aortic stenosis Constipation Diabetes mellitus Foot pain Heart murmur, systolic HTN (hypertension) Hx of adenomatous colonic polyps Jaw pain Obesity Palpitations Prediabetes Quadriceps tendon rupture Rectal bleeding Tinea pedis Surgical History Tonsillectomy Social History Smoking/Tobacco Use Status: Never Smoking risk assessment performed?: Yes Alcohol Intake: current Alcohol Intake frequency: a few times a week Alcohol type: beer and hard liquor Drug use: Never Substance use type: does not use Do you feel safe at home: Yes Do you feel safe in your relationship?: Yes Exam Const General: cooperative, comfortable and no acute distress [facility] Teeth image: 1. No fracture noted, irritated buccal mucosa, soft tissue tenderness, uvula midline, no evidence of deep space infection, no fluctuance Resp Effort & Inspection: normal respiratory effort Auscultation: clear to auscultation bilaterally Cardio Rate: regular rate Rhythm: regular rhythm Neuro General: patient alert and patient oriented x3 Course Vital Signs Vital signs: Vital Signs Temperature 36.6 C 01/06/22 09:58 Pulse 79 01/06/22 09:58 Respiratory Rate 16 01/06/22 09:58 Blood Pressure 154/81 H 01/06/22 09:58 Pulse Oximetry 98 01/06/22 09:58 Temperature 36.6 C 01/06/22 09:58 Temperature Source Tympanic 01/06/22 09:58 Pulse 79 01/06/22 09:58 Respiratory Rate 16 01/06/22 09:58 Respiratory Effort Non-Labored 01/06/22 10:01 Blood Pressure 154/81 H 01/06/22 09:58 Blood Pressure Position Sitting 01/06/22 09:58 Pulse Oximetry 98 01/06/22 09:58 Pain Level 7 01/06/22 10:01 PAWSS Have you Been Recently Intoxicated or Drunk Within the Last 30 days?: No Have you Ever Experienced Previous Episodes of Alcohol Withdrawal?: No Have you ever Experienced Withdrawal Seizures?: No Have you ever Experienced Delirium Tremens(DT)s?: No Have you ever undergone Alcohol Rehabilitation Treatment (i.e, inpt ot outpatient treatment programs)?: No Have you ever Experienced Blackouts?: No Have you ever Combined Alcohol with other Downers within the last 90 days?: No Have you ever Combined Alcohol with any other Substance of Abuse during the last 90 days?: No Result: 0
== END 2022-01-06 10:47 | disposition home or self-care (01) ==
PROVIDERS: Emergency Provider Physician Assistant; PCP Family Medicine
DX: K08.89 Other specified disorders of teeth and supporting structures (principal)
CPT/HCPCS: 99283

== ENCOUNTER 2022-01-07 08:30 | Emergency (ER) | payer OTHER, SELFPAY ==
[2022-01-07 08:36] VITALS: BP 182/103; PULSE 78; RESP 18; TEMP 37.2; O2SAT 98
[2022-01-07] MEDS: LORazepam 1 MG TAB PO (09:42)
[2022-01-07] MEDS: Lisinopril 20 MG TAB 40 MG PO (09:42)
[2022-01-07 09:45] LABS: Abs Immature Grans 0.09 10^3/uL (0.0-0.06); Absolute Basophil Count 0.05 10^3/uL (0.0-0.2); Absolute Eosinophil Count 0.16 10^3/uL (0.0-0.7); Absolute Lymphocyte Count 1.55 10^3/uL (1.2-3.4); Absolute Neutrophil Count 7.91 10^3/uL (1.2-6.7); Basophils % 0.5; Eosinophils % 1.5; HCT 44.4 % (40.0-50.0); Immature Grans % 0.9; MCH 28.9 pg (27.0-33.0); MCHC 33.8 % (32.0-36.0); MCV 86 fL (80-95); MPV 11.3 fL (8.0-11.0); Monocytes % 5.8; Neutrophils % 76.3; Platelet Count 126 10^3/uL (130-400); RBC 5.19 10^6/uL (4.36-5.78); RDW-SD 39.8 fL; WBC 10.36 10^3/uL (4.4-10.8)
[2022-01-07 09:52] LABS: Bilirubin Negative (Negative); Blood Negative (Negative); Clarity Clear (Clear); Glucose 500 mg/dL (Negative); Ketones Negative (Negative); Leukocyte Esterase Negative (Negative); Nitrite Negative (Negative); Specific Gravity 1.025 (1.005-1.025); Urobilinogen 0.2 EU/dL (Up TO 0.2)
[2022-01-07 09:57] LABS: *AMPHETAMINES SCREEN URINE Negative (Negative); *BARBITURATES SCREEN URINE Negative (Negative); *BENZODIAZEPINES SCREEN URINE Negative (Negative); Cannabinoids THC Negative (Negative); Cocaine Screen,Urine Negative (Negative); METHADONE URINE SCREEN Negative (Negative); OPIATES URINE SCREEN Negative (Negative)
[2022-01-07 10:04] LABS: Tricyclic Antidepressants Negative (Negative)
[2022-01-07 10:07] LABS: Salicylate < 2.8 mg/dL (<2.8)
[2022-01-07 10:08] LABS: ALT 24 U/L (16-63); AST 11 U/L (15-37); Albumin 4.3 g/dL (3.4-5.0); Alkaline Phosphatase 66 U/L (46-116); Anion Gap 8.6 mmol/L (3-11); BUN 10 mg/dL (7-18); Bilirubin, Total 1.1 mg/dL (0.2-1.0); CO2 27.4 mmol/L (21.0-32.0); CREATININE 1.1 mg/dL (0.70-1.30); Calcium 8.8 mg/dL (8.5-10.1); Chloride 106 mmol/L (98-107); Glucose 168 mg/dL (74-106); Potassium 3.9 mmol/L (3.5-5.1); Sodium 142 mmol/L (136-145); Total Protein 7.1 g/dL (6.4-8.2)
[2022-01-07 10:09] LABS: ETHANOL BLOOD < 3.0 mg/dL (<10)
[2022-01-07 10:21] LABS: TSH (W/Ref FT4) 1.28 uIU/mL (0.36-3.74)
[2022-01-07 10:47] LABS: Acetaminophen < 2 ug/mL (10-30)
--- NOTE | 2022-01-07 11:45 | ED.GENADUL_ITS ---
Discharge Plan Disposition Patient Disposition: HOME Condition: Stable Discharge Details Clinical Impression: Mood disorder Primary Care Provider: Rajwinder Garcia ED Provider: Casandra Dunn Home Meds and New Rx's Prescriptions: Continued ibuprofen 800 MG tablet 800 mg PO TID Qty: 60 lisinopril 10 mg tablet 40 mg PO DAILY Label Comments: 10.14.17 pt states current dose is 40mg qday.HE fluoxetine 40 mg capsule 40 mg PO DAILY Label Comments: TAKE ONE CAPSULE BY MOUTH EVERY DAY glimepiride 2 mg tablet 2 mg PO DAILY clindamycin HCl 150 mg capsule 450 mg PO TID Qty: 90 0RF oxycodone 5 mg capsule 5 mg PO Q8H PRNQty: 7 0RF Levemir FlexTouch U-100 Insuln 100 unit/mL (3 mL) insulin pen 100 unit SUBCUT Discharge Instructions Additional Instructions: Please follow-up with your doctor and [facility] human services, it is very important that you have follow-up I am giving you a work note for 2 weeks off Please return earlier should you develop any recurrent thoughts of wanting to harm yourself, worsening depression, or any additional concerns Continue antibiotics Stand Alone Forms: Work Release Referrals: Rajwinder Garcia MD [Primary Care Provider] - Discharge Data Discharge Date/Time-TO BE ENTERED AT DEPARTURE: 01/07/22 12:08 Medical Decision Making Patient medically cleared, mental health assessed patient and have safety plan for him for discharge Given patient's initial presentation, I am concerned about discharging him home so spent approximately 30 minutes in the room of this patient He states but when he got home he does not have suicidal ideation, however secondary to work stressors, this precipitated depression and suicidal ideation Today he was scheduled to work and cannot bring himself to go in He states that if he has some time off of work to look for a new job and he would not have thoughts of wanting to harm himself and largely history of ideation and depression with situational He is safe but recently his counselor and PRANAV as has been ill and he has not been able to see her and the psychiatric meds that he takes or have taken previously COVID adverse effects that he had to discontinue them He tells me that he would like to be discharged home and does not want psychiatric hospitalization He states that he no longer has a plan to harm himself but does still feel depressed He feels as though he is safe at home MTHFR the safety plan set up and patient feels comfortable with this plan He is fully alert, oriented, of decisional capacity and I think he is safe for discharge home at this time Again I had an extensive conversation with patient and he feels comfortable discharge and will return immediately should he have recurrent SI Patient also placed on care management list at [facility] so that he may establish assistance from caretaker groundsglobal category manager Records Medical records reviewed: Yes I reviewed the patient's medical records. Lab Data Lab results reviewed: Yes I reviewed the patient's lab results. HPI General Date/Time Provider Initiated Documentation: 01/07/22 08:43 . HPI Narrative: This 56-year-old gentleman presents secondary to depression which he is experiencing secondary to work-related issues. He states he has a plan to harm himself but does not feel comfortable disclosing it. He denies any attempts to harm self today. He states that he has been taking his psychiatric medications secondary to adverse effects from them. He has been also on for approximately a month per patient. He has had a counselor previously with [facility] chest but has not been evaluated in the past several months per patient. He denies any recent hospitalizations. He denies any fever or chills. He denies any head injuries. He denies any illicit drug use. He denies any homicidal ideation. He denies any auditory or visual hallucinations. Denies any chest pain, shortness of breath, dizziness, weakness. Related Data Home Medications Medication Instructions Recorded Confirmed ibuprofen 800 mg tablet 800 mg PO TID #60 tab-caps 07/16/17 01/06/22 lisinopril 10 mg tablet 40 mg PO DAILY 02/08/20 01/06/22 insulin detemir U-100 100 unit/mL 100 unit subcut 12/21/20 (3 mL) subcutaneous pen (Levemir FlexTouch U-100 Insulin) fluoxetine 40 mg capsule 40 mg PO DAILY 06/23/21 01/06/22 glimepiride 2 mg tablet 2 mg PO DAILY 06/23/21 01/06/22 clindamycin HCl 150 mg capsule 450 mg PO TID #90 caps 01/06/22 oxycodone 5 mg capsule 5 mg PO Q8H PRN #7 caps 01/06/22 Previous Rx's Medication Instructions Recorded clindamycin HCl 150 mg capsule 450 mg PO TID #90 caps 01/06/22 oxycodone 5 mg capsule 5 mg PO Q8H PRN #7 caps 01/06/22 Allergies Allergy/AdvReac Type Severity Reaction Status Date / Time No Known Allergies Allergy Verified 01/06/22 10:02 General Stated Complaint: PsychEval MARKO: 2 Review of Systems All systems reviewed & are unremarkable except as noted in HPI and below PFSH All Active Problems (Updated 01/07/22 @ 11:47 by PAT Mayen) External otitis of right ear (Acute) Mastoiditis (Acute) Pain, dental (Acute) Mood disorder (Acute) Medical History Anxiety Aortic stenosis Constipation Diabetes mellitus Foot pain Heart murmur, systolic HTN (hypertension) Hx of adenomatous colonic polyps Jaw pain Obesity Palpitations Prediabetes Quadriceps tendon rupture Rectal bleeding Tinea pedis Surgical History Tonsillectomy Social History Smoking/Tobacco Use Status: Never Smoking risk assessment performed?: Yes Alcohol Intake: current Alcohol Intake frequency: a few times a week Alcohol type: beer and hard liquor Drug use: Never Substance use type: does not use Do you feel safe at home: Yes Do you feel safe in your relationship?: Yes Exam Const General: cooperative, comfortable and no acute distress Eyes Pupils: PERRL Resp Effort & Inspection: normal respiratory effort Cardio Rate: regular rate Skin General skin exam: no rashes or lesions noted Neuro General: patient alert and patient oriented x3 Cranial Nerves: CN's II-XI intact bilaterally Cognition: normal cognition Speech: speech normal Gait: normal gait Extrem General: normal to inspection Psych Appearance: well kempt Mental Status: mental status grossly normal Speech and Movement: speech and movement normal Affect: sad Attitude: cooperative Thought Process: normal Thought Content: normal Insight: insight good Judgment: fair Course Vital Signs Vital signs: Vital Signs Temperature 37.2 C 01/07/22 08:36 Pulse 78 01/07/22 08:36 Respiratory Rate 18 01/07/22 08:36 Blood Pressure 182/103 H 01/07/22 08:36 Pulse Oximetry 98 01/07/22 08:36 Temperature 37.2 C 01/07/22 08:36 Temperature Source Tympanic 01/07/22 08:36 Pulse 78 01/07/22 08:36 Respiratory Rate 18 01/07/22 08:36 Respiratory Effort 01/07/22 08:39 Blood Pressure 182/103 H 01/07/22 08:36 Blood Pressure Position Supine 01/07/22 08:36 Pulse Oximetry 98 01/07/22 08:36 Oxygen Delivery Method Room Air 01/07/22 08:36 Oxygen Flow Rate 0 01/07/22 08:36 Pain Level 0 01/07/22 08:36 Lab/Test Results Lab/Test Results: Laboratory Tests Range/Units 01/07/22 01/07/22 01/07/22 09:37 09:37 09:37 WBC (4.4-10.8) 10^3/uL 10.36 RBC (4.36-5.78) 10^6/uL 5.19 Hgb (13.5-17.5) g/dL 15.0 Hct (40.0-50.0) % 44.4 MCV (80-95) fL 86 MCH (27.0-33.0) pg 28.9 MCHC (32.0-36.0) % 33.8 RDW (11.8-14.1) % 13.0 Plt Count (130-400) 10^3/uL 126 L MPV (8.0-11.0) fL 11.3 H Immature Gran % 0.9 Neutrophils % 76.3 Lymphocytes % 15.0 Monocytes % 5.8 Eosinophils % 1.5 Basophils % 0.5 Nucleated RBC % (0.0-0.3) % 0.0 Absolute Neutrophils (1.2-6.7) 10^3/uL 7.91 H Absolute Lymphocytes (1.2-3.4) 10^3/uL 1.55 Absolute Monocytes (0.1-0.8) 10^3/uL 0.60 Absolute Eosinophils (0.0-0.7) 10^3/uL 0.16 Absolute Basophils (0.0-0.2) 10^3/uL 0.05 Sodium (136-145) mmol/L 142 Potassium (3.5-5.1) mmol/L 3.9 Chloride (98-107) mmol/L 106 Carbon Dioxide (21.0-32.0) mmol/L 27.4 Anion Gap (3-11) mmol/L 8.6 BUN (7-18) mg/dL 10 Creatinine (0.70-1.30) mg/dL 1.1 Est GFR (CKD-EPI 2020) (mL/min/1.73m2) 78.30 Glucose (74-106) mg/dL 168 H Calcium (8.5-10.1) mg/dL 8.8 Total Bilirubin (0.2-1.0) mg/dL 1.1 H AST (15-37) U/L 11 L ALT (16-63) U/L 24 Alkaline Phosphatase (46-116) U/L 66 Total Protein (6.4-8.2) g/dL 7.1 Albumin (3.4-5.0) g/dL 4.3 TSH (0.36-3.74) uIU/mL Urine Color (Yellow) Urine Clarity (Clear) Urine pH (5-8) Ur Specific [place] (1.005-1.025) Urine Protein (Negative) mg/dL Urine Ketones (Negative) mg/dL Urine Blood (Negative) Urine Nitrite (Negative) Urine Bilirubin (Negative) Urine Urobilinogen (Up TO 0.2) EU/dL Ur Leukocyte Esterase (Negative) Urine Glucose (Negative) mg/dL Salicylates (<2.8) mg/dL < 2.8 Urine Opiates Screen (Negative) Urine Methadone Screen (Negative) Acetaminophen (10-30) ug/mL < 2 Ur Barbiturates Screen (Negative) Ur Tricyclics Screen (Negative) Ur Amphetamines Screen (Negative) U Benzodiazepines Scrn (Negative) Urine Cocaine Screen (Negative) Ur THC Screen (Negative) Ethyl Alcohol (<10) mg/dL < 3.0 Range/Units 01/07/22 01/07/22 01/07/22 09:37 09:39 09:39 WBC (4.4-10.8) 10^3/uL RBC (4.36-5.78) 10^6/uL Hgb (13.5-17.5) g/dL Hct (40.0-50.0) % MCV (80-95) fL MCH (27.0-33.0) pg MCHC (32.0-36.0) % RDW (11.8-14.1) % Plt Count (130-400) 10^3/uL MPV (8.0-11.0) fL Immature Gran % Neutrophils % Lymphocytes % Monocytes % Eosinophils % Basophils % Nucleated RBC % (0.0-0.3) % Absolute Neutrophils (1.2-6.7) 10^3/uL Absolute Lymphocytes (1.2-3.4) 10^3/uL Absolute Monocytes (0.1-0.8) 10^3/uL Absolute Eosinophils (0.0-0.7) 10^3/uL Absolute Basophils (0.0-0.2) 10^3/uL Sodium (136-145) mmol/L Potassium (3.5-5.1) mmol/L Chloride (98-107) mmol/L Carbon Dioxide (21.0-32.0) mmol/L Anion Gap (3-11) mmol/L BUN (7-18) mg/dL Creatinine (0.70-1.30) mg/dL Est GFR (CKD-EPI 2020) (mL/min/1.73m2) Glucose (74-106) mg/dL Calcium (8.5-10.1) mg/dL Total Bilirubin (0.2-1.0) mg/dL AST (15-37) U/L ALT (16-63) U/L Alkaline Phosphatase (46-116) U/L Total Protein (6.4-8.2) g/dL Albumin (3.4-5.0) g/dL TSH (0.36-3.74) uIU/mL 1.28 Urine Color (Yellow) Yellow Urine Clarity (Clear) Clear Urine pH (5-8) 7.0 Ur Specific [place] (1.005-1.025) 1.025 Urine Protein (Negative) mg/dL Negative Urine Ketones (Negative) mg/dL Negative Urine Blood (Negative) Negative Urine Nitrite (Negative) Negative Urine Bilirubin (Negative) Negative Urine Urobilinogen (Up TO 0.2) EU/dL 0.2 Ur Leukocyte Esterase (Negative) Negative Urine Glucose (Negative) mg/dL 500 H Salicylates (<2.8) mg/dL Urine Opiates Screen (Negative) Negative Urine Methadone Screen (Negative) Negative Acetaminophen (10-30) ug/mL Ur Barbiturates Screen (Negative) Negative Ur Tricyclics Screen (Negative) Negative Ur Amphetamines Screen (Negative) Negative U Benzodiazepines Scrn (Negative) Negative Urine Cocaine Screen (Negative) Negative Ur THC Screen (Negative) Negative Ethyl Alcohol (<10) mg/dL PAWSS Have you Been Recently Intoxicated or Drunk Within the Last 30 days?: Yes Have you Ever Experienced Previous Episodes of Alcohol Withdrawal?: No Have you ever Experienced Withdrawal Seizures?: No Have you ever Experienced Delirium Tremens(DT)s?: No Have you ever undergone Alcohol Rehabilitation Treatment (i.e, inpt ot outpatient treatment programs)?: No Have you ever Experienced Blackouts?: No Have you ever Combined Alcohol with other Downers within the last 90 days?: No Have you ever Combined Alcohol with any other Substance of Abuse during the last 90 days?: No Positive Blood Alcohol level on Presentation? [PCS.BAL]: No Evidence of Increased Autonomic Activity (i.e. HR>120, tremor, sweating, agitation, nausea)?: No Result: 1
--- NOTE | 2022-01-07 16:54 | PDOC.MHCN_ITS ---
Date of service: 01/07/22 Time of Service: 10:31 PHQ-9 Over the last 2 weeks, how often have you been bothered by any of the following problems? 1. Little interest or pleasure in doing things: nearly every day 2. Feeling down, depressed, or hopeless: nearly every day 3. Trouble falling or staying asleep, or sleeping too much: nearly every day 4. Feeling tired or having little energy: nearly every day 5. Poor appetite or overeating: nearly every day 6. Feeling bad about yourself - or that you are a failure or have let yourself and your family down: nearly every day 7. Trouble concentrating on things, such as reading the newspaper or watching television: nearly every day 8. Moving or speaking so slowly that other people could have noticed? - Or the opposite - being so fidgety or restless that you have been moving around a lot more than usual: nearly every day 9. Thoughts that you would be better off or of hurting yourself in some way: nearly every day Total score: 27 If you checked off any problems, how difficult have these problems made it for you to do your work, take care of things at home, or get along with other people?: very difficult PHQ-9 Results: Positive Source: Developed by Drs. Nicholas Boo, Pauly Urias, Isaias Pena and colleagues, with an educational demario from [employer]. Suicide Severity Rate CSSRS Have you wished you were or wished you could go to sleep and not wake up?: Yes Have you actually had any thoughts of killing yourself?: Yes CSSRS2 Have you been thinking about how you might do this?: Yes Have you had these thoughts and had some intention of acting on them?: No Have you started to work out or worked out the details of how to kill yourself? Do you intend to carry out this plan?: No CSSRS3 Have you ever done anything, started to do anything or prepared to do anything to end your life?: No CSSRS4 Was this within the past three months?: No Screening Score Total Score: 4 Screening: Positive Mental Health Emergency Note Release [facility] release signed:: Yes Reason for Visit Client presented to [facility] via [facility] police after client called [phone] endorsing suicidal ideations. Client states that he is feeling depressed and is having fleeting suicidal ideations, however declines intent and plan at this time. In the last 2 weeks has the pt presented for ES prior to today?: No Client Information Client is: Adult Outpatient Non Suicidal Self Injury Current: No History: No Safety Risk/Harm to Self or Others Current Ideation to Harm Self or Others: Yes to self. (Client currently endorisng fleeting SI, however denies intent and plan at this time. ) Intent: no, has no intent. Plan: no.does not have a plan. History of suicide attempt: No history of suicide attempt reported Risk: Does risk to harm exist?: No Risk: Low Risk Duty to warn indicated: No Asssessment/Mental Status Appearance: Unremarkable Attitude: Cooperative Behavior: Unremarkable Speech: Normal Affect: Cogruent with mood Mood: Depressed Thought process: Unremarkable Hallucinations: No Delusions: No Attention: Unremarkable Perception: Not impaired Orientation: Fully orientated Memory: Intact Insight: Fair Judgement: Fair Neurovegetative Symptoms Sleep: Decrease (Client reports interrupted sleep. ) Appetitie: Increase (Client reports overeating. ) Interests: Decrease (Client reports no interest in doing anything. ) Energy: Decrease (Client reports poor energy. ) Libido: Not applicable Substance Use: ETOH dependence (Client reports daily alcohol use. 4-5 mixed drinks daily. ) Do you use nicotine?: No Have you used substances in the last 7 days?: yes, 4-5 mixed drinks daily. Additional Issues: Assaultive/Threatening Behavior: No Medical Concerns: No Client engaged in active self harm w/weapon: No Threatening to run away: No Child reported abuse/neglect: No Voluntarily presenting for services: Yes Domestic violence is a concern: No Extreme Psychosis or extreme behavior is present: No Impression Client is a 56 y/o single male that lives in [place], [place]. 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 Client was seen by this quality analyst/technical writer via zoom at [facility]. Client presents with symptoms most congruent with major depressive disorder as evidenced by self-report, that he feels hopeless, overeating, and decrease of sleep. Client reports that he is having issues with co-workers and does not feel like he is supported in his workplace currently. Client is currently endorsing fleeting SI, however denies intent and plan to act on these thoughts. Client reports that he was previously enrolled in outpatient services at [facility], however per self report states that he did not have a connection with his therapist and felt like his medications were not working. Client has expressed interest in returning to therapy in order to better manage current work conflicts and to learn coping skills that he can utilize when he is feeling overwhelmed. Client appears to be future oriented and motivated to re- engage in the supports that he has utilized in the past to manage his stress and depression. Resources Reosurces reviewed and given:: [id number] and [facility] (Referral for case manageement and therapy. ) Plan/Disposition Recommended Disposition: [facility] Services (Therapy referral as well as check-in phone calls with [facility] daily at 3p. ) [facility] Services: Therapy. Plan: Client does not meet criteria for inpatient hospitalization at this time. Client will return home on a pro-active safety plan with check-in phone calls with [facility] ES daily at 3p through 01/10. Referral will also be made for case management and therapy through [facility]. Client also provided with 988 and [place] crisis text line to utilize as resources as well. Person reported agreement to plan: Yes Reports/communication Outcome discussed with: ED/Personnel (Verbal passover given to ED nurse Tod. )
== END 2022-01-07 12:08 | disposition home or self-care (01) ==
PROVIDERS: Emergency Provider Physician Assistant; PCP Family Medicine
DX: F39 Unspecified mood [affective] disorder (principal); I10 Essential (primary) hypertension; E11.9 Type 2 diabetes mellitus without complications
CPT/HCPCS: 36415; 80053; 80307; 99283; 80320; 80329; 81003; 84443; 85025; 99284

== ENCOUNTER 2022-02-01 13:43 | Emergency (ER) | payer OTHER, SELFPAY ==
--- NOTE | 2022-02-01 13:45 | RT.EKG_ITS ---
APPROVED REPORT Exam: Resting ECG Reason for Exam: tachycardia Patient Location: E HR:109 bpm ECG Measurements Heart Rate 109 AXIS AL 161 P 41 QRSd 106 QRS 22 QT 354 T 19 QTc 476 Conclusion Sinus tachycardia...rate> 99 Probable left atrial enlargement...P >50mS, <-0.10mV V1 Inferior infarct, old...Q >35mS, II III aVF
[2022-02-01 13:46] VITALS: BP 184/97; PULSE 121; RESP 18; TEMP 36.6; O2SAT 98
[2022-02-01 14:18] LABS: Abs Immature Grans 0.11 10^3/uL (0.0-0.06); Absolute Basophil Count 0.04 10^3/uL (0.0-0.2); Absolute Eosinophil Count 0.18 10^3/uL (0.0-0.7); Absolute Monocyte Count 0.84 10^3/uL (0.1-0.8); Absolute Neutrophil Count 11.08 10^3/uL (1.2-6.7); Basophils % 0.3; Eosinophils % 1.3; HCT 49.2 % (40.0-50.0); HGB 16.8 g/dL (13.5-17.5); Immature Grans % 0.8; Lymphocytes % 12.4; MCHC 34.1 % (32.0-36.0); MCV 85 fL (80-95); MPV 11.2 fL (8.0-11.0); Neutrophils % 79.2; Platelet Count 145 10^3/uL (130-400); RDW 13.2 % (11.8-14.1); RDW-SD 40.2 fL; WBC 13.99 10^3/uL (4.4-10.8)
[2022-02-01 14:21] LABS: Absolute Lymphocyte Count 1.73 10^3/uL (1.2-3.4)
[2022-02-01] MEDS: Normal Saline 1,000 ML 1000 ML IV (14:38)
[2022-02-01] MEDS: Prochlorperazine 10 MG/2 ML VIAL 5 MG IVP (14:51)
[2022-02-01 15:13] LABS: ALT 34 U/L (16-63); AST 18 U/L (15-37); Albumin 4.7 g/dL (3.4-5.0); Alkaline Phosphatase 84 U/L (46-116); Anion Gap 11.9 mmol/L (3-11); BUN 12 mg/dL (7-18); Bilirubin, Total 0.9 mg/dL (0.2-1.0); CO2 26.1 mmol/L (21.0-32.0); CREATININE 1.2 mg/dL (0.70-1.30); Calcium 9.8 mg/dL (8.5-10.1); Chloride 103 mmol/L (98-107); Estimated GFR 70.53 (mL/min/1.73m2); Glucose 171 mg/dL (74-106); Lipase 119 U/L (73-393); Potassium 3.4 mmol/L (3.5-5.1); Sodium 141 mmol/L (136-145); Total Protein 8.1 g/dL (6.4-8.2); Troponin I < 50 ng/L (<or=60)
--- NOTE | 2022-02-01 15:23 | ED.GENADUL_ITS ---
Discharge Plan Disposition Patient Disposition: Home Condition: Stable Discharge Details Clinical Impression: Diaphoresis Primary Care Provider: Rajwinder Garcia ED Provider: Casandra Dunn Home Meds and New Rx's Prescriptions: Continued ibuprofen 800 MG tablet 800 mg PO TID Qty: 60 lisinopril 10 mg tablet 40 mg PO DAILY Label Comments: 10.14.17 pt states current dose is 40mg qday.HE fluoxetine 40 mg capsule 40 mg PO DAILY Label Comments: TAKE ONE CAPSULE BY MOUTH EVERY DAY glimepiride 2 mg tablet 2 mg PO DAILY clindamycin HCl 150 mg capsule 450 mg PO TID Qty: 90 0RF oxycodone 5 mg capsule 5 mg PO Q8H PRNQty: 7 0RF clonazepam 0.5 mg tablet 1 tab PO Label Comments: TAKE ONE TABLET BY MOUTH THREE TIMES A DAY FOR ANXIETY, PANIC ATTACKS mirtazapine 15 mg tablet 15 tab PO DAILY duloxetine 60 mg capsule,delayed release(DR/EC) 60 cap PO DAILY Levemir FlexTouch U-100 Insuln 100 unit/mL (3 mL) insulin pen 100 unit SUBCUT Discharge Instructions Additional Instructions: Please follow-up with your primary care physician and talk to your mental health provider regarding your medications as its unclear as to why you are taking Some of your medications may be contributing to your symptoms Try having small frequent meals instead of larger portions, half cup of food at a time Return earlier should you have new or worsening complaints Referrals: Rajwinder Garcia MD [Primary Care Provider] - 1 day Discharge Data Discharge Date/Time-TO BE ENTERED AT DEPARTURE: 02/01/22 15:52 Medical Decision Making This 56-year-old gentleman with history of anxiety, aortic stenosis, diabetes, hypertension presents with postprandial vomiting over the course of the past week. States he was recently started on some new medications for his depression and anxiety and is unsure as to whether or not this may be contributing States blood sugars have been within normal limits Because of tachycardia and comorbidities, I did order EKG, troponin, and diagnostic labs Patient is diaphoretic but otherwise asymptomatic, specifically denies any chest discomfort He is unsure as to what psychiatric meds he is currently taking, he will need close outpatient reassessment with his psychiatric nurse practitioner, he is instructed to call on Thursday I did consider serotonin syndrome, however patient is fluid responsive and feeling improvement after Compazine, tachycardia has resolved with fluids and antiemetics alone His symptoms resolved completely in between meals which make it less likely that this is related to his new psychiatric meds His diagnostic labs display mild leukocytosis, but no additional findings Close outpatient follow-up recommended Both with primary care physician and psychiatric nurse practitioner Close return precautions reviewed and patient was understanding, please see EKG interpretation by my attending provider Sign Out No HPI General Date/Time Provider Initiated Documentation: 02/01/22 13:52 . HPI Narrative: This 56-year-old male with history of mood disorder, depression presents with report of sweating past prandial ingestion. He states this has been having for approximately week. Started a week after starting on some new antidepressant medications. He is unsure as to whether or not there is a correlation. He denies any new depression or suicidality. Denies any chest pain or shortness of breath. He states that typically approximately 20 minutes after he eats he develops the symptoms and subsequent nausea in the absence of vomiting. He kyaw es any fever or chills. He denies any associated abdominal discomfort or epigastric discomfort. States prior to these episodes a week ago he is not experiencing symptoms. Today he had 216 ounce tubs of cottage cheese which is symptoms have lasted approximately 2 hours which concerned him and which is why he presents today. Related Data Home Medications Medication Instructions Recorded Confirmed ibuprofen 800 mg tablet 800 mg PO TID #60 tab-caps 07/16/17 02/01/22 lisinopril 10 mg tablet 40 mg PO DAILY 02/08/20 02/01/22 insulin detemir U-100 100 unit/mL 100 unit subcut 12/21/20 (3 mL) subcutaneous pen (Levemir FlexTouch U-100 Insulin) fluoxetine 40 mg capsule 40 mg PO DAILY 06/23/21 02/01/22 glimepiride 2 mg tablet 2 mg PO DAILY 06/23/21 02/01/22 clindamycin HCl 150 mg capsule 450 mg PO TID #90 caps 01/06/22 02/01/22 oxycodone 5 mg capsule 5 mg PO Q8H PRN #7 caps 01/06/22 02/01/22 clonazepam 0.5 mg tablet 1 tab PO 02/01/22 duloxetine 60 mg capsule,delayed 60 cap PO DAILY 02/01/22 02/01/22 release mirtazapine 15 mg tablet 15 tab PO DAILY 02/01/22 02/01/22 Previous Rx's Medication Instructions Recorded clindamycin HCl 150 mg capsule 450 mg PO TID #90 caps 01/06/22 oxycodone 5 mg capsule 5 mg PO Q8H PRN #7 caps 01/06/22 Allergies Allergy/AdvReac Type Severity Reaction Status Date / Time No Known Allergies Allergy Verified 02/01/22 13:52 General Stated Complaint: Nausea/Vomit/Diar MARKO: 4 Review of Systems All systems reviewed & are unremarkable except as noted in HPI and below PFSH All Active Problems (Updated 02/01/22 @ 15:43 by PAT Mayen) External otitis of right ear (Acute) Mastoiditis (Acute) Pain, dental (Acute) Mood disorder (Acute) Diaphoresis (Acute) Medical History Anxiety Aortic stenosis Constipation Diabetes mellitus Foot pain Heart murmur, systolic HTN (hypertension) Hx of adenomatous colonic polyps Jaw pain Obesity Palpitations Prediabetes Quadriceps tendon rupture Rectal bleeding Tinea pedis Surgical History Tonsillectomy Social History Smoking/Tobacco Use Status: Never Smoking risk assessment performed?: Yes Alcohol Intake: current Alcohol Intake frequency: a few times a week Alcohol type: beer and hard liquor Drug use: Never Substance use type: does not use Do you feel safe at home: Yes Do you feel safe in your relationship?: Yes Exam Const General: cooperative, comfortable and no acute distress Orientation: alert and oriented x3 Resp Effort & Inspection: normal respiratory effort Auscultation: clear to auscultation bilaterally Cardio Rate: tachycardic Rhythm: regular rhythm GI Inspection: normal to inspection Other: Nontender abdominal exam Skin Other: Diaphoresis Neuro General: patient alert and patient oriented x3 Course Vital Signs Vital signs: Vital Signs Temperature 36.6 C 02/01/22 13:46 Pulse 121 H 02/01/22 13:46 Respiratory Rate 18 02/01/22 13:46 Blood Pressure 184/97 H 02/01/22 13:46 Pulse Oximetry 98 02/01/22 13:46 Temperature 36.6 C 02/01/22 13:46 Temperature Source Temporal Artery Scan 02/01/22 13:46 Pulse 121 H 02/01/22 13:46 Respiratory Rate 18 02/01/22 13:46 Respiratory Effort 02/01/22 13:53 Blood Pressure 184/97 H 02/01/22 13:46 Blood Pressure Position Sitting 02/01/22 13:46 Pulse Oximetry 98 02/01/22 13:46 Oxygen Delivery Method Room Air 02/01/22 13:46 Oxygen Flow Rate 0 02/01/22 13:46 Pain Level 0 02/01/22 13:46 Lab/Test Results Lab/Test Results: Laboratory Tests Range/Units 02/01/22 02/01/22 14:10 14:10 WBC (4.4-10.8) 10^3/uL 13.99 H RBC (4.36-5.78) 10^6/uL 5.80 H Hgb (13.5-17.5) g/dL 16.8 Hct (40.0-50.0) % 49.2 MCV (80-95) fL 85 MCH (27.0-33.0) pg 29.0 MCHC (32.0-36.0) % 34.1 RDW (11.8-14.1) % 13.2 Plt Count (130-400) 10^3/uL 145 MPV (8.0-11.0) fL 11.2 H Immature Gran % 0.8 Neutrophils % 79.2 Lymphocytes % 12.4 Monocytes % 6.0 Eosinophils % 1.3 Basophils % 0.3 Nucleated RBC % (0.0-0.3) % 0.0 Absolute Neutrophils (1.2-6.7) 10^3/uL 11.08 H Absolute Lymphocytes (1.2-3.4) 10^3/uL 1.73 Absolute Monocytes (0.1-0.8) 10^3/uL 0.84 H Absolute Eosinophils (0.0-0.7) 10^3/uL 0.18 Absolute Basophils (0.0-0.2) 10^3/uL 0.04 Sodium (136-145) mmol/L 141 Potassium (3.5-5.1) mmol/L 3.4 L Chloride (98-107) mmol/L 103 Carbon Dioxide (21.0-32.0) mmol/L 26.1 Anion Gap (3-11) mmol/L 11.9 H BUN (7-18) mg/dL 12 Creatinine (0.70-1.30) mg/dL 1.2 Est GFR (CKD-EPI 2020) (mL/min/1.73m2) 70.53 Glucose (74-106) mg/dL 171 H Calcium (8.5-10.1) mg/dL 9.8 Total Bilirubin (0.2-1.0) mg/dL 0.9 AST (15-37) U/L 18 ALT (16-63) U/L 34 Alkaline Phosphatase (46-116) U/L 84 Troponin I (<or=60) ng/L < 50 Total Protein (6.4-8.2) g/dL 8.1 Albumin (3.4-5.0) g/dL 4.7 Lipase (73-393) U/L 119 TSH (0.36-3.74) uIU/mL 2.10
[2022-02-01 15:51] VITALS: BP 139/84; PULSE 91; RESP 14; O2SAT 98
== END 2022-02-01 15:52 | disposition home or self-care (01) ==
PROVIDERS: Emergency Provider Physician Assistant; PCP Family Medicine
DX: R61 Generalized hyperhidrosis (principal); I10 Essential (primary) hypertension; E11.9 Type 2 diabetes mellitus without complications; R00.0 Tachycardia, unspecified; Z79.4 Long term (current) use of insulin
CPT/HCPCS: 36415; 80053; 83690; 93005; 96361; 96374; 96375; 99284; 84443; 84484; 85025; 93010; J0780

== ENCOUNTER 2022-03-29 06:26 | Emergency (ER) | payer OTHER, SELFPAY ==
[2022-03-29 06:31] VITALS: BP 163/81; PULSE 75; RESP 16; TEMP 36.1; O2SAT 99
--- NOTE | 2022-03-29 06:47 | ED.GENADUL_ITS ---
Discharge Plan Disposition Patient Disposition: Home Condition: Stable Discharge Details Clinical Impression: Left shoulder strain, Radiculopathy of arm Primary Care Provider: Rajwinder Garcia ED Provider: Monet Bishop Home Meds and New Rx's Prescriptions: New methocarbamol 500 mg tablet 500 mg PO Q6H PRN (Reason: muscle spasm) Qty: 14 0RF prednisone 20 mg tablet See Rx Instructions .ROUTE .COMPLEX Qty: 12 0RF Rx Instructions: Take 3 tabs daily for 2 days, then 2 tabs daily for 2 days, then 1 tab daily for 2 days Continued ibuprofen 800 MG tablet 800 mg PO TID Qty: 60 lisinopril 10 mg tablet 40 mg PO DAILY Label Comments: 10.14.17 pt states current dose is 40mg qday.HE fluoxetine 40 mg capsule 40 mg PO DAILY Label Comments: TAKE ONE CAPSULE BY MOUTH EVERY DAY glimepiride 2 mg tablet 2 mg PO DAILY oxycodone 5 mg capsule 5 mg PO Q8H PRNQty: 7 0RF clonazepam 0.5 mg tablet 1 tab PO Label Comments: TAKE ONE TABLET BY MOUTH THREE TIMES A DAY FOR ANXIETY, PANIC ATTACKS mirtazapine 15 mg tablet 15 tab PO DAILY duloxetine 60 mg capsule,delayed release(DR/EC) 60 cap PO DAILY Levemir FlexTouch U-100 Insuln 100 unit/mL (3 mL) insulin pen 100 unit SUBCUT Discharge Instructions Instructions: Cervical Radiculopathy (ED), Shoulder Pain (ED) Additional Instructions: Your symptoms appear consistent with a likely strain or sprain in your left shoulder causing referred pain to the remainder of your arm. This can cause local inflammation which can also cause pressure around the nerve leading to tingling and numbness near the affected area. Alternate ice and heat to the affected area(s) several times daily for 20 minutes at a time. Take 500 mg of Tylenol every 4 hours and 600 mg of Motrin every 6 hours as needed and directed for pain. Prescriptions for the steroid prednisone and the muscle relaxer methocarbamol have been sent electronically to your pharmacy. Be sure to check your sugar regularly and adjust your insulin as needed while taking the steroids as steroids can cause an increase in your blood sugar. Follow-up with your primary care doctor in 1 week. Return to the emergency department with any worsening or new concerning symptoms. 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 He describes the repetitive motion as standing in front of a machine and catching the boards onto his forearms continuously with movement of his arms and shoulders left to right over period of several hours. His left upper extremity appears normal to inspection without evidence of trauma or cellulitis. He has pain with range of motion at his left shoulder and elbow with limited abduction and flexion and internal and external rotation at left shoulder secondary to pain. He is neurovascularly intact. Skin color normal to inspection. Positive Spurling's test on left. His presentation appears likely consistent with a left shoulder sprain or strain with radiculopathy. I do not see an indication for imaging at this time. His history and presentation does not appear consistent with fracture as he has had no report of blunt injury and it was a repetitive motion injury. History and presentation also does not appear consistent with ACS or PE. Discussed with patient that 8 tabs of Advil is not recommended and that he should take no more than 3-4 tabs of 200mg at one time every 6 hours. As it has been almost 6 hours since his last dose, will give a reduced dose of a Toradol IM injection. We will also treat with a short course of oral steroids and muscle relaxers. Patient drove himself to the emergency department so we will send the muscle relaxers electronically to his pharmacy in addition to the steroid prescription. He is advised to check his sugar regularly and adjust his insulin as needed while taking the steroids. Advised to follow up with the primary care doctor for re-evaluation. Usual and customary return precautions given prior to discharge. Medical Records Medical records reviewed: Yes I reviewed the patient's medical records. HPI General Mode of arrival: ambulatory . Date/Time Provider Initiated Documentation: 03/29/22 06:43 . Limitations to Documentation: no limitations . Information obtained by: patient . HPI Narrative: Patient is a 57-year-old male with a history of hypertension, diabetes, anxiety and depression who presents for left upper extremity pain extending from his shoulders down to his hand with tingling and numbness mostly in his left hand since yesterday at work. Patient states he was moving heavy boards in which he was catching them as they were coming out of machine onto his forearms with constant movement at both of his shoulders for several hours yesterday. Patient denies any acute injury at the time but noted that when he was finished his left shoulder had pain which was extending down his whole arm, mainly into his left elbow. He has pain with range of motion at his left shoulder and elbow. He also notes tingling mainly in his left hand and fingers. He has been taking Advil for pain which was helping yesterday but did not help this morning. He states he took 8 tabs of Advil almost 6 hours ago. He has not taken any Tylenol. He denies any headache, neck pain, chest pain, difficulty breathing or weakness in his left upper extremity. Related Data Home Medications Medication Instructions Recorded Confirmed ibuprofen 800 mg tablet 800 mg PO TID #60 tab-caps 07/16/17 03/29/22 lisinopril 10 mg tablet 40 mg PO DAILY 02/08/20 03/29/22 insulin detemir U-100 100 unit/mL 100 unit subcut 12/21/20 (3 mL) subcutaneous pen (Levemir FlexTouch U-100 Insulin) fluoxetine 40 mg capsule 40 mg PO DAILY 06/23/21 03/29/22 glimepiride 2 mg tablet 2 mg PO DAILY 06/23/21 03/29/22 oxycodone 5 mg capsule 5 mg PO Q8H PRN #7 caps 01/06/22 03/29/22 clonazepam 0.5 mg tablet 1 tab PO 02/01/22 duloxetine 60 mg capsule,delayed 60 cap PO DAILY 02/01/22 03/29/22 release mirtazapine 15 mg tablet 15 tab PO DAILY 02/01/22 03/29/22 methocarbamol 500 mg tablet 500 mg PO Q6H PRN muscle spasm #14 03/29/22 tabs prednisone 20 mg tablet See Rx Instructions .Route 03/29/22 .COMPLEX #12 tabs Previous Rx's Medication Instructions Recorded oxycodone 5 mg capsule 5 mg PO Q8H PRN #7 caps 01/06/22 methocarbamol 500 mg tablet 500 mg PO Q6H PRN muscle spasm #14 03/29/22 tabs prednisone 20 mg tablet See Rx Instructions .Route 03/29/22 .COMPLEX #12 tabs Allergies Allergy/AdvReac Type Severity Reaction Status Date / Time No Known Allergies Allergy Verified 03/29/22 06:37 General Stated Complaint: Orthopedic MARKO: 4 Review of Systems All systems reviewed & are unremarkable except as noted in HPI and below Constitutional Constitutional: Reports as per HPI, Denies chills and Denies fever(s) Eyes Eyes: Denies blurry vision ENT Ears, Nose, Mouth, and Throat: Denies dizziness, Denies sore throat and Denies throat swelling Cardiovascular Cardiovascular: Denies chest pain and Denies dyspnea Respiratory Respiratory: Denies cough and Denies dyspnea Gastrointestinal Gastrointestinal: Denies abdominal pain, Denies diarrhea and Denies vomiting Genitourinary Genitourinary: Denies hematuria and Denies dysuria Musculoskeletal Musculoskeletal: Denies back pain and Denies numbness Comments: L arm pain extending from shoulder down to fingers Integumentary/Breasts Skin/Breast: Denies lesions and Denies rash Neurologic Neurologic: Denies dizziness, Denies localized weakness and Denies numbness Allergic/Immunologic Allergic/Immunologic: Denies throat swelling PFSH All Active Problems (Updated 03/29/22 @ 07:29 by Monet Bishop DO) External otitis of right ear (Acute) Mastoiditis (Acute) Left shoulder strain (Acute) Radiculopathy of arm (Acute) Medical History Anxiety Aortic stenosis Constipation Diabetes mellitus Foot pain Heart murmur, systolic HTN (hypertension) Hx of adenomatous colonic polyps Jaw pain Obesity Palpitations Prediabetes Quadriceps tendon rupture Rectal bleeding Tinea pedis Surgical History Tonsillectomy Social History Smoking/Tobacco Use Status: Never Smoking risk assessment performed?: Yes Alcohol Intake: current Alcohol Intake frequency: a few times a week Alcohol type: beer and hard liquor Drug use: Never Substance use type: does not use Do you feel safe at home: Yes Do you feel safe in your relationship?: Yes Exam Const General: cooperative, healthy appearing and no acute distress HENMT Head: normal to inspection Mouth: oral mucosae normal Eyes General: appearance normal, both eyes and all related structures Neck Neck: normal visual inspection Resp Effort & Inspection: normal respiratory effort and able to speak in complete sentences Cardio Rate: regular rate Back/Spine/Pelvis Cervical Spine: cervical ROM normal Skin General skin exam: no rashes or lesions noted Neuro General: patient alert, patient awake and patient oriented x3 Motor: muscle tone normal throughout DTR's: Rt Biceps: 0, Lt Biceps: 0, Rt Brachioradialis: 1+ and Lt Brachioradialis: 1+ Other: Motor/sensory grossly intact to bilateral upper extremities. Normal motor and sensory function grossly intact to bilateral radial/median/ulnar nerve distribution. Extrem Other: Reproducible pain in left shoulder with range of motion. Limited abduction and flexion to approximately 70 degrees secondary to pain. Limited full external and internal rotation. Has generally full range of motion at elbow but with pain. The left upper extremity appears normal to inspection without erythema, edema, ecchymosis. Bilateral distal upper extremity pulses intact. Positive Spurling's test on left. Psych Appearance: grossly normal Affect: normal affect Course Vital Signs Vital signs: Vital Signs Temperature 97.0 F L 03/29/22 06:31 Pulse 75 03/29/22 06:31 Respiratory Rate 16 03/29/22 06:31 Blood Pressure 163/81 H 03/29/22 06:31 Pulse Oximetry 99 03/29/22 06:31 Temperature 97.0 F L 03/29/22 06:31 Temperature Source Temporal Artery Scan 03/29/22 06:31 Pulse 75 03/29/22 06:31 Respiratory Rate 16 03/29/22 06:31 Respiratory Effort 03/29/22 06:31 Blood Pressure 163/81 H 03/29/22 06:31 Blood Pressure Position Sitting 03/29/22 06:31 Pulse Oximetry 99 03/29/22 06:31 Oxygen Delivery Method Room Air 03/29/22 06:31 Oxygen Flow Rate 0 03/29/22 06:31 Pain Level 9 03/29/22 06:39
[2022-03-29] MEDS: predniSONE 20 MG TAB 60 MG PO (07:14)
[2022-03-29] MEDS: Ketorolac 60 MG/2 ML VIAL 30 MG IM (07:14)
[2022-03-29 07:19] VITALS: BP 163/81; PULSE 75; RESP 16; TEMP 36.1; O2SAT 99
== END 2022-03-29 07:43 | disposition home or self-care (01) ==
PROVIDERS: Emergency Provider Physician Assistant; PCP Family Medicine
DX: S46.912A Strain of unspecified muscle, fascia and tendon at shoulder and upper arm level, left arm, initial encounter (principal); M54.10 Radiculopathy, site unspecified; I10 Essential (primary) hypertension; E11.9 Type 2 diabetes mellitus without complications; R20.2 Paresthesia of skin; Z79.4 Long term (current) use of insulin; Y99.0 Civilian activity done for income or pay; X50.0XXA Overexertion from strenuous movement or load, initial encounter
CPT/HCPCS: 96372; 99284; J1885; J7512

== ENCOUNTER 2022-05-09 15:09 | Outpatient (REF) | payer OTHER, SELFPAY ==
[2022-05-09 18:46] LABS: Calculated LDL 113 mg/dL (<100); Cholesterol 199 mg/dL (<200); HDL Cholesterol 46 mg/dL (40-60); Triglyceride 201 mg/dL (<150)
[2022-05-12 09:39] LABS: HIV-1/2 Ag & Ab Screen Negative (Negative)
== END 2022-05-09 15:10 | disposition home or self-care (01) ==
LOC: NCHCN 15:09
PROVIDERS: PCP Family Medicine; Visit Provider Family Medicine
DX: I10 Essential (primary) hypertension (principal); Z00.00 Encounter for general adult medical examination without abnormal findings
CPT/HCPCS: 80061; 87389

== ENCOUNTER 2022-09-04 02:02 | Outpatient (CLI) | payer OTHER, SELFPAY ==
--- NOTE | 2022-09-04 13:40 | DI.MRI_ITS ---
Exam(s) MR UPPER JOINT LT WO EXAM: MR UPPER JOINT LT WO CLINICAL HISTORY: Persistent shoulder pain, LT SHOULDER PAIN, M25.512. TECHNIQUE: Multiplanar multisequence MRI was performed. COMPARISON: Exam interpreted without benefit of comparison plain films. FINDINGS: BONES: There is no fracture or contusion pattern. JOINTS:The acromioclavicular joint shows spurring and a small amount of fluid. There is also spurrin g at the tip of the acromion. There is mild impingement on the distal supraspinatus muscle tendon ju nction. The glenohumeral joint is normal. TENDONS: Supraspinatus: Mild high signal distally and anteriorly could indicate tendinitis versus small partia l tear. Infraspinatus: Unremarkable. Subscapularis: Unremarkable. Teres Minor: Unremarkable. Biceps and [place]: Unremarkable. MUSCLES: Unremarkable. GLENOID LABRUM: Unremarkable on this noncontrast examination. SOFT TISSUES: Unremarkable. OTHER: Subacromial and subdeltoid bursae minimal fluid.. IMPRESSION: Tendinitis versus small partial tear anterior supraspinatus tendon. Degenerative changes of the AC joint with apparent impingement. DATA REPOSITORY:
== END 2022-09-04 02:22 ==
LOC: DI 02:03
PROVIDERS: PCP Family Medicine; Visit Provider Nurse Practitioner Family
DX: M25.512 Pain in left shoulder (principal)
CPT/HCPCS: 73221

== ENCOUNTER 2022-09-24 16:48 | Outpatient (REF) | payer OTHER, SELFPAY ==
[2022-09-24 20:15] LABS: COMMENT (LAB VIEW ONLY) 276.49 mg/dL; Microalb ug/mg Crea 3.6 ug/mg Cr
== END 2022-09-24 16:49 | disposition home or self-care (01) ==
LOC: NCHCN 16:48
PROVIDERS: PCP Family Medicine; Visit Provider Family Medicine
DX: E11.9 Type 2 diabetes mellitus without complications (principal)
CPT/HCPCS: 82043; 82570

== ENCOUNTER 2022-10-14 13:43 | Outpatient (CLI) | payer OTHER, SELFPAY ==
--- NOTE | 2022-10-14 13:15 | DI.RAD_ITS ---
Exam(s) XR SHOULDER LT COMPLETE 2+V EXAM: XR SHOULDER LT COMPLETE 2+V CLINICAL HISTORY: LEFT SHOULDER PAIN. TECHNIQUE: 2D digital imaging was performed. Two views. AP and axillary COMPARISON: No exams were available for comparison FINDINGS: BONES: No acute fracture is present. No bony destructive lesion is seen. Spurring at the AC joint an d tip distal acromion. JOINTS: No dislocation present. Glenohumeral joint space is maintained. No significant degenerative changes. Humeral head normally positioned. SOFT TISSUE: Normal. IMPRESSION: Degenerative changes of the AC joint and acromion. DATA REPOSITORY: RADIATION DOSE DELIVERED:
--- NOTE | 2022-10-14 13:49 | DI.RAD_ITS ---
Exam(s) XR CERVICAL SP LEVY TRAUMA 2-3V EXAM: XR CERVICAL SP LEVY TRAUMA 2-3V CLINICAL HISTORY: NECK PAIN. TECHNIQUE: 2D digital imaging was performed. COMPARISON: No exams were available for comparison FINDINGS: BONES: No fracture or destructive lesion. Vertebral bodies are unremarkable. Mild facet degenerative changes. DISKS: Intervertebral disc spaces are maintained. ALIGNMENT: Cervical spinal alignment is within normal limits. Severe narrowing at the atlantoaxial zach int anteriorly with prominent spurring. SOFT TISSUE: Normal. The lung apices are clear. IMPRESSION: Degenerative changes at the land to axial joint. DATA REPOSITORY: RADIATION DOSE DELIVERED:
== END 2022-10-14 13:44 | disposition home or self-care (01) ==
PROVIDERS: PCP Family Medicine; Referring Provider Family Medicine; Visit Provider Student in an Organized Health Care Education/Training Program
DX: M19.012 Primary osteoarthritis, left shoulder (principal); M47.891 Other spondylosis, occipito-atlanto-axial region
CPT/HCPCS: 72040; 73030

== ENCOUNTER 2023-02-06 20:37 | Outpatient (REF) | payer OTHER, SELFPAY ==
[2023-02-06 20:15] LABS: Anion Gap 9.6 mmol/L (3-11); BUN 13 mg/dL (7-18); CO2 24.4 mmol/L (21.0-32.0); CREATININE 1.1 mg/dL (0.70-1.30); Calcium 9.1 mg/dL (8.5-10.1); Chloride 104 mmol/L (98-107); Estimated GFR 77.81 (mL/min/1.73m2); Glucose 130 mg/dL (74-106); Potassium 3.8 mmol/L (3.5-5.1); Sodium 138 mmol/L (136-145)
== END 2023-02-06 20:38 | disposition home or self-care (01) ==
LOC: NCHCN 20:37
PROVIDERS: PCP Family Medicine; Visit Provider Family Medicine
DX: E11.9 Type 2 diabetes mellitus without complications (principal)
CPT/HCPCS: 80048

== ENCOUNTER 2023-08-31 07:18 | Emergency (ER) | payer OTHER, SELFPAY ==
[2023-08-31 07:20] VITALS: BP 192/81; PULSE 86; RESP 20; TEMP 36.5; O2SAT 99
--- NOTE | 2023-08-31 07:30 | DI.CT_ITS ---
Exam(s) CT ABDOMEN PELVIS WO EXAM: CT ABDOMEN PELVIS WO CLINICAL HISTORY: abd pain., n/v/d. TECHNIQUE: Imaging Protocol: Axial computed tomography images with coronal and sagittal reformatted images were created and reviewed CONTRAST MATERIAL: Intravenous: none Oral: None FINDINGS: VISUALIZED LUNG BASES: No nodules nor pleural effusions evident. ABDOMEN: There is no ascites. There is some streaking in the central mesentery noted. There are multiple sli ghtly prominent lymph nodes noted throughout the mesentery. These range up to 2 cm size. LIVER: There are no obvious focal hepatic lesions evident of this noninfused study. GALLBLADDER/BILIARY: No obvious gallbladder pathology. CBD is not dilated. PANCREAS: No evidence of pancreatic mass nor dilatation of the pancreatic duct. SPLEEN: Spleen is not enlarged. No obvious intrasplenic lesions. ADRENALS: There are no significant adrenal masses. KIDNEYS:Left kidney unremarkable. There is a 1.8 cm hypodensity in the posterior cortex of the right kidney which is probably a benign cysts. More superiorly in the upper pole region of the right kidn ey is a 2.5 x 2.5 cm nodular density which is either variant parenchyma or solid lesion. Ultrasound recommended if cannot injected IV contrast. No renal calculi nor hydronephrosis. Ureters are not di lated.. ABDOMINAL AORTA: Abdominal aorta is not enlarged. Common origin of the celiac and SMA again noted. LYMPH NODES: Multiple moderately enlarged lymph nodes in the mesentery noted, as described above. No para-aortic adenopathy. No adenopathy around the aortic bifurcation and iliac chains. Shoddy lymph nodes noted in the inguinal regions. ABDOMINAL WALL: There is bilateral subcutaneous aching and overlying skin thickening. Possibly relat ed to injection sites. No drainable fluid collections in the subcutaneous fat. GI: There is no evidence of bowel obstruction, free air, nor abscess. There appears to be a mild Deily is pattern. PELVIS: LYMPH NODES: There is no intrapelvic nor inguinal adenopathy. GI: No evidence of appendicitis.No evidence of sigmoid diverticulitis. URINARY BLADDER: No calculi nor obvious masses evident REPRODUCTIVE: Mildly enlarged prostate. OSSEOUS: No significant osseous lesions. No fractures. Multilevel chronic degenerative disc disease in lower lumbar spine. IMPRESSION: 1. There is central mesenteric streaking and multiple slightly enlarged lymph nodes in the mesentery noted. Spleen size is normal. No ascites. 2. Possible 2.5 cm solid nodule in the superior pole of the right kidney versus just lobulation . Recommend follow-up ultrasound. 3. No obvious acute gallbladder pathology. I note that on the 2018 study there was some gallbladder wall enhancement. The biliary tree is not dilated. 4. Subcutaneous fat streaking and overlying skin thickening. These are possibly related to injectio n sites. There is no formed subcutaneous fluid collection. Discussed with ER physician. RADIATION DOSE DELIVERED: 1,105.33mGy.cm Total DLP DATA REPOSITORY: All CT scans at this facility are submitted to the National Radiology Data Registry (NRDR) Dose Index Registry (DIR) with the [employer] (A[employer]). RADIATION OPTIMIZATION: All CT scans at this facility use at least one of these dose optimization te chniques: automated exposure control; mA and/or kV adjustment per patient size (includes targeted exa ms where dose is matched to clinical indication); or iterative reconstruction.
[2023-08-31 07:45] LABS: Bilirubin Negative (Negative); Blood Negative (Negative); Clarity Clear (Clear); Glucose 500 mg/dL (Negative); Ketones Negative (Negative); Leukocyte Esterase Negative (Negative); Nitrite Negative (Negative); Specific Gravity 1.015 (1.005-1.025); Urobilinogen 0.2 mg/dL (Up to 0.2); pH 5.5 (5-8)
[2023-08-31 07:47] LABS: BE (Venous) 1 mmol/L (-2-3); HCO3 (Venous) 26 mmol/L (23-28); O2 Sat (Venous) 60 %; TCO2 (Venous) 23 mmol/L (24-29); pCO2 (Venous) 42 mmHg (41-51); pH (Venous) 7.39 (7.31-7.41); pO2 (Venous) 32 mmHg
[2023-08-31] MEDS: Normal Saline 1,000 ML 1000 ML IV (07:49)
[2023-08-31] MEDS: Ondansetron 4 MG/2 ML VIAL IVP (07:49)
[2023-08-31 07:50] LABS: HCT 45.1 % (40.0-50.0); HGB 15.7 g/dL (13.5-17.5); MCH 28.8 pg (27.0-33.0); MCHC 34.8 % (32.0-36.0); MCV 83 fL (80-95); MPV 10.8 fL (8.0-11.0); Platelet Count 149 10^3/uL (130-400); RBC 5.45 10^6/uL (4.36-5.78); RDW 12.9 % (11.8-14.1); RDW-SD 38.5 fL; WBC 18.43 10^3/uL (4.4-10.8)
[2023-08-31 07:54] VITALS: BP 192/81; PULSE 86; RESP 20; TEMP 36.5; O2SAT 99
[2023-08-31 08:13] LABS: Absolute Eosinophil Count 0.37 10^3/uL (0.0-0.7); Absolute Lymphocyte Count 1.29 10^3/uL (1.2-3.4); Absolute Monocyte Count 0.55 10^3/uL (0.1-0.8); Absolute Neutrophil Count 15.85 10^3/uL (1.2-6.7); Atypical Lymphocytes % 0 %; Bands % 2 %; Myelocytes % 2
[2023-08-31 08:14] LABS: Diff Comment Manual Differential; RBC Morphology Normal
[2023-08-31 08:16] LABS: Lipase 74 U/L (16-77)
[2023-08-31 08:19] LABS: ALT 32 U/L (16-63); AST 18 U/L (15-37); Alkaline Phosphatase 80 U/L (46-116); BUN 8 mg/dL (7-18); Bilirubin, Total 0.61 mg/dL (0.2-1.0); CREATININE 1.1 mg/dL (0.70-1.30); Calcium 9.2 mg/dL (8.5-10.1); Chloride 103 mmol/L (98-107); Estimated GFR 77.33 (mL/min/1.73m2); Glucose 143 mg/dL (74-106); Magnesium 1.9 mg/dL (1.8-2.4); Potassium 3.9 mmol/L (3.5-5.1); Sodium 140 mmol/L (136-145); Total Protein 7.1 g/dL (6.4-8.2)
[2023-08-31 08:42] VITALS: BP 151/80; PULSE 77; RESP 18; O2SAT 98
[2023-08-31 10:07] VITALS: BP 132/70; PULSE 76; RESP 18; O2SAT 98
--- NOTE | 2023-08-31 14:12 | ED.GENADUL_ITS ---
Discharge Plan Disposition Patient Disposition: Home Condition: Stable Discharge Details Clinical Impression: Vomiting and diarrhea, Mesenteric adenitis, Kidney lesion Primary Care Provider: Rajwinder Garcia ED Provider: Nuvia Salinas Home Meds and New Rx's Prescriptions: New amoxicillin-pot clavulanate 875-125 mg tablet 1 tab PO Q12H 7 Days Qty: 14 0RF ondansetron 4 mg tablet,disintegrating 4 mg PO Q6H PRNQty: 20 0RF No Action lisinopril 10 mg tablet 40 mg PO DAILY Patient Comments: 8. pt states current dose is 40mg qday.HE penicillin V potassium 500 mg tablet 500 mg PO BID Patient Comments: TAKE ONE TABLET BY MOUTH TWICE A DAY FOR 10 DAYS Jardiance 25 mg tablet 25 mg PO DAILY insulin degludec [Tresiba FlexTouch U-200] 200 unit/mL (3 mL) insulin pen 160 unit SUBCUT DAILY Patient Comments: INJECT 100 UNITS INTO THE SKIN UNDER THE SKIN ONCE DAILY, TITRATE FOR FASTING SUGARS UNDER 140-MAX OF 160 UNITS Vraylar 3 mg capsule 3 mg PO DAILY Patient Comments: TAKE ONE CAPSULE BY MOUTH EVERY DAY Levemir FlexTouch U100 Insulin 100 unit/mL (3 mL) insulin pen 160 unit SUBCUT DAILY Discharge Instructions Instructions: Mesenteric Lymphadenitis (DC) Additional Instructions: * start antibiotics as prescribed, you have signs of infection in your abdomen that might be causing your vomiting and diarreah * take the nausea medication as needed * make sure to drink lots of water and advance your diet slowly * monitor your blood sugar closely, illness can cause lots of variations * you have a small abnormality on your kidney that needs further evaluation by ultrasound, please follow up with your PCP to arrange for this to be completed Stand Alone Forms: Work Release Discharge Data Discharge Date/Time-TO BE ENTERED AT DEPARTURE: 08/31/23 10:07 HPI General Date/Time Provider Initiated Documentation: 08/31/23 07:22 . Limitations to Documentation: no limitations . Information obtained by: patient . HPI Narrative: 58-year-old gentleman with past medical history including diabetes presents for evaluation of vomiting and diarrhea. He states that he has been having symptoms for the last several days. He states that he was seen at urgent care and they thought that this was something related to his throat or his ear. He reports that he has no symptoms of throat or ear pain. He states that he has no significant abdominal pain. No fever. States just persistent vomiting and loose stools. He states that he has not been eating much, but he continues to check his blood sugar he states that it is up-and-down. He has been taking his insulin. Related Data Home Medications Medication Instructions Recorded Confirmed lisinopril 10 mg tablet 40 mg PO DAILY 02/08/20 08/31/23 insulin detemir U-100 100 unit/mL 160 unit subcut DAILY 10/14/22 08/31/23 (3 mL) subcutaneous pen (Levemir FlexTouch U-100 Insulin) amoxicillin 875 mg-potassium 1 tab PO Q12H 7 days #14 tabs 08/31/23 clavulanate 125 mg tablet cariprazine 3 mg capsule (Vraylar) 3 mg PO DAILY 08/31/23 08/31/23 empagliflozin 25 mg tablet 25 mg PO DAILY 08/31/23 08/31/23 (Jardiance) insulin degludec 200 unit/mL (3 160 unit subcut DAILY 08/31/23 08/31/23 mL) subcutaneous pen (Tresiba FlexTouch U-200 insulin) ondansetron 4 mg disintegrating 4 mg PO Q6H PRN #20 tabs 08/31/23 tablet penicillin V potassium 500 mg 500 mg PO BID 08/31/23 08/31/23 tablet Previous Rx's Medication Instructions Recorded amoxicillin 875 mg-potassium 1 tab PO Q12H 7 days #14 tabs 08/31/23 clavulanate 125 mg tablet ondansetron 4 mg disintegrating 4 mg PO Q6H PRN #20 tabs 08/31/23 tablet Allergies Allergy/AdvReac Type Severity Reaction Status Date / Time No Known Allergies Allergy Verified 08/31/23 07:22 General Stated Complaint: Nausea/Vomit/Diar MARKO: 3 Exam Narrative Exam Narrative: Review of Systems: All systems reviewed & are unremarkable except as noted in HPI and below Well-developed, no acute distress NCAT PERRL, normal conjunctiva Dry mucous membranes No cervical adenopathy, posterior oropharynx is unremarkable Bilateral TM unremarkable RRR, no murmur Unlabored respiratory effort, clear bilaterally Nondistended abdomen, soft nontender Extremities w/o deformity, no cyanosis, no edema No rashes or lesions. no focal neurologic deficits Appropriate mood and affect Course Vital Signs Vital signs: Vital Signs Temperature 36.5 C 08/31/23 07:20 Pulse 86 08/31/23 07:20 Respiratory Rate 20 08/31/23 07:20 Blood Pressure 192/81 H 08/31/23 07:20 Pulse Oximetry 99 08/31/23 07:20 Temperature 36.5 C 08/31/23 07:54 Temperature Source Oral 08/31/23 07:54 Pulse 76 08/31/23 10:07 Respiratory Rate 18 08/31/23 10:07 Respiratory Effort Normal, Non-Labored 08/31/23 08:42 Respiratory Depth Normal 08/31/23 08:42 Respiratory Pattern Normal 08/31/23 08:42 Blood Pressure 132/70 08/31/23 10:07 Blood Pressure Mean 103 08/31/23 08:42 Blood Pressure Position Sitting 08/31/23 08:42 Pulse Oximetry 98 08/31/23 10:07 Oxygen Delivery Method Room Air 08/31/23 07:54 Oxygen Flow Rate 0 08/31/23 07:54 Pain Level 0 08/31/23 07:54 Lab/Test Results Lab/Test Results: Laboratory Tests Range/Units 08/31/23 07:40 WBC (4.4-10.8) 10^3/uL 18.43 H RBC (4.36-5.78) 10^6/uL 5.45 Hgb (13.5-17.5) g/dL 15.7 Hct (40.0-50.0) % 45.1 MCV (80-95) fL 83 MCH (27.0-33.0) pg 28.8 MCHC (32.0-36.0) % 34.8 RDW (11.8-14.1) % 12.9 Plt Count (130-400) 10^3/uL 149 MPV (8.0-11.0) fL 10.8 Immature Gran % See Differential Neutrophils % % 84.0 Band Neutrophils % % 2 Lymphocytes % % 7.0 Atypical Lymphs % % 0 Monocytes % % 3.0 Eosinophils % % 2.0 Basophils % % 0.0 Myelocytes % 2 Nucleated RBC % (0.0-0.3) % 0.0 Absolute Neutrophils (1.2-6.7) 10^3/uL 15.85 H Absolute Lymphocytes (1.2-3.4) 10^3/uL 1.29 Absolute Monocytes (0.1-0.8) 10^3/uL 0.55 Absolute Eosinophils (0.0-0.7) 10^3/uL 0.37 Absolute Basophils (0.0-0.2) 10^3/uL 0.00 RBC Morphology Normal VBG pH (7.31-7.41) 7.39 VBG pCO2 (41-51) mmHg 42 VBG pO2 mmHg 32 VBG HCO3 (23-28) mmol/L 26 VBG Total CO2 (24-29) mmol/L 23 L VBG O2 Saturation % 60 VBG Base Excess (-2-3) mmol/L 1 Sodium (136-145) mmol/L 140 Potassium (3.5-5.1) mmol/L 3.9 Chloride (98-107) mmol/L 103 Carbon Dioxide (21.0-32.0) mmol/L 26.0 Anion Gap (3-11) mmol/L 11.0 BUN (7-18) mg/dL 8 Creatinine (0.70-1.30) mg/dL 1.1 Est GFR (CKD-EPI 2020) (mL/min/1.73m2) 77.33 Glucose (74-106) mg/dL 143 H Calcium (8.5-10.1) mg/dL 9.2 Magnesium (1.8-2.4) mg/dL 1.9 Total Bilirubin (0.2-1.0) mg/dL 0.61 AST (15-37) U/L 18 ALT (16-63) U/L 32 Alkaline Phosphatase (46-116) U/L 80 Total Protein (6.4-8.2) g/dL 7.1 Albumin (3.4-5.0) g/dL 4.0 Lipase (16-77) U/L 74 Urine Color (Yellow) Yellow Urine Clarity (Clear) Clear Urine pH (5-8) 5.5 Ur Specific [place] (1.005-1.025) 1.015 Urine Protein (Neg-Trace) mg/dL Negative Urine Ketones (Negative) mg/dL Negative Urine Blood (Negative) Negative Urine Nitrite (Negative) Negative Urine Bilirubin (Negative) Negative Urine Urobilinogen (Up to 0.2) mg/dL 0.2 Ur Leukocyte Esterase (Negative) Negative Urine Glucose (Negative) mg/dL 500 H Medical Decision Making Emergent evaluation of vomiting and diarrhea. Patient reports symptoms have been ongoing for several days. Initial differential includes dehydration, electrolyte derangement, metabolic crisis. Patient has a soft abdomen and has not had fever so I have a lower suspicion for an acute intra-abdominal process. Lab work was obtained, he does have a significant leukocytosis at 18. There is likely some shift from repeated vomiting. No anemia. VBG has a normal pH and electrolytes are without derangement. There is mild hyperglycemia without any evidence of DKA. Lipase is negative, unlikely pancreatitis. Urinalysis has glucose, but no ketones again unlikely DKA. Patient was resuscitated with IV fluids. A CT scan of his abdomen was obtained, there is some mesenteric streaking with lymph nodes. This is likely the cause of his white blood cell derangement. Will treat for mesenteric adenitis, but the patient should be followed up by his PCP and have repeat lab work testing to make sure that his blood counts returned to normal and that this is not evidence of a more concerning etiology such as lymphoma. I did discuss the CT findings with the radiologist and there is a small renal lesion. I have advised the patient that he should follow-up with PCP for outpatient ultrasound. He has normal renal function and unremarkable urinalysis. On reassessment, the patient is tolerating p.o. without vomiting. Will discharge with prescription for Zofran. Return precautions advised. Advise close follow-up with PCP. Medical Records Medical records reviewed: Yes I reviewed the patient's medical records. Lab Data Lab results reviewed: Yes I reviewed the patient's lab results. Quality:SDOH Health Related Social Needs: No Data to Display [facility] All Active Problems Kidney lesion (Acute) Mesenteric adenitis (Acute) Vomiting and diarrhea (Acute) Santana sign present (Acute) Cervical spine arthritis (Acute) Paresthesia of hand, bilateral (Acute) Bilateral hand numbness (Acute) Carpal tunnel syndrome, bilateral (Acute) Superior labrum [id number] (SLAP) tear of left shoulder (Acute ~04/2022) Left shoulder pain (Acute) Medical History Mastoiditis External otitis of right ear Diabetes mellitus Obesity Quadriceps tendon rupture Constipation HTN (hypertension) Hx of adenomatous colonic polyps Rectal bleeding Prediabetes Jaw pain Heart murmur, systolic Aortic stenosis Anxiety Palpitations Tinea pedis Foot pain Surgical History Tonsillectomy Social History Smoking/Tobacco Use Status: Never Smoking risk assessment performed?: Yes Alcohol Intake: current Alcohol Intake frequency: a few times a week Alcohol type: beer and hard liquor Drug use: Never Substance use type: does not use Current gender identity: male Do you feel safe at home: Yes Do you feel safe in your relationship?: Yes
[2023-08-31 20:24] LABS: Hemoglobin A1C 7.3 % (<5.7)
== END 2023-08-31 10:07 | disposition home or self-care (01) ==
PROVIDERS: Emergency Provider Emergency Medicine; PCP Family Medicine
DX: R11.2 Nausea with vomiting, unspecified (principal); R19.7 Diarrhea, unspecified; N28.9 Disorder of kidney and ureter, unspecified; I88.0 Nonspecific mesenteric lymphadenitis
CPT/HCPCS: 36415; 36416; 80053; 82805; 82962; 83690; 96361; 96374; 99284; 74176; 81003; 83036; 83735; 85025; 99283; J2405

== ENCOUNTER 2023-09-07 07:57 | Emergency (ER) | payer OTHER, SELFPAY ==
[2023-09-07 08:03] VITALS: BP 145/80; PULSE 97; RESP 14; TEMP 36.6; O2SAT 97
--- NOTE | 2023-09-07 08:33 | ED.GENADUL_ITS ---
Discharge Plan Disposition Patient Disposition: Home Condition: Stable Discharge Details Clinical Impression: Nausea vomiting and diarrhea Primary Care Provider: Rajwinder Garcia ED Provider: Kalli Prince Home Meds and New Rx's Prescriptions: Continued lisinopril 10 mg tablet 40 mg PO DAILY Patient Comments: 10.14.17 pt states current dose is 40mg qday.HE Jardiance 25 mg tablet 25 mg PO DAILY insulin degludec [Tresiba FlexTouch U-200] 200 unit/mL (3 mL) insulin pen 160 unit SUBCUT DAILY Patient Comments: INJECT 100 UNITS INTO THE SKIN UNDER THE SKIN ONCE DAILY, TITRATE FOR FASTING SUGARS UNDER 140-MAX OF 160 UNITS Vraylar 3 mg capsule 3 mg PO DAILY Patient Comments: TAKE ONE CAPSULE BY MOUTH EVERY DAY ondansetron 4 mg tablet,disintegrating 4 mg PO Q6H PRNQty: 20 0RF Levemir FlexTouch U100 Insulin 100 unit/mL (3 mL) insulin pen 160 unit SUBCUT DAILY amoxicillin-pot clavulanate 875-125 mg tablet 1 tab PO BID Patient Comments: TAKE ONE TABLET BY MOUTH EVERY 12 HOURS FOR 7 DAYS lithium carbonate 300 mg tablet 300 mg PO DAILY Discharge Instructions Instructions: Nausea and Vomiting, Adult ED Additional Instructions: Please keep your appointment at 0930 today as discussed and as scheduled. Please take the Zofran 20 to 30 minutes prior to eating or drinking anything. Continue to drink clear liquids and electrolyte solution. Follow up with primary care provider in 1 days. Return to ED sooner if any worsening or concerns. Stand Alone Forms: Work Release Referrals: Rajwinder Garcia MD [Primary Care Provider] - 1 day (Keep your appointment today) Discharge Data Discharge Date/Time-TO BE ENTERED AT DEPARTURE: 09/07/23 08:50 HPI General Mode of arrival: ambulatory . Date/Time Provider Initiated Documentation: 09/07/23 08:22 . Information obtained by: patient, RN notes reviewed and old records reviewed . HPI Narrative: 58-year-old male presents to the ER with a chief complaint of continued nausea vomiting sore throat. He was seen on 30 August and given Augmentin for presumptive strep and ear infection. He was also diagnosed at that time with mesenteric adenitis. He does have an appointment with his PCP next week. Initially abdominal pain workup ordered including CBC CMP urinalysis however, at this time he is declining any lab work he is requesting a work note. I did discuss his home care and strict return instructions he verbalized understanding. He is unsure if he has filled the Zofran that was prescribed for him a week ago. He is still taking the antibiotic. Past medical history includes hypertension, insulin-dependent diabetes, obesity, does heart murmur, aortic stenosis anxiety. At this time he denies any fever chills hematochezia or hematemesis. He reports the pain gets worse after eating. Related Data Home Medications Medication Instructions Recorded Confirmed lisinopril 10 mg tablet 40 mg PO DAILY 02/08/20 09/07/23 insulin detemir U-100 100 unit/mL 160 unit subcut DAILY 10/14/22 09/07/23 (3 mL) subcutaneous pen (Levemir FlexTouch U-100 Insulin) cariprazine 3 mg capsule (Vraylar) 3 mg PO DAILY 08/31/23 09/07/23 empagliflozin 25 mg tablet 25 mg PO DAILY 08/31/23 09/07/23 (Jardiance) insulin degludec 200 unit/mL (3 160 unit subcut DAILY 08/31/23 09/07/23 mL) subcutaneous pen (Tresiba FlexTouch U-200 insulin) ondansetron 4 mg disintegrating 4 mg PO Q6H PRN #20 tabs 08/31/23 09/07/23 tablet amoxicillin 875 mg-potassium 1 tab PO BID 09/07/23 09/07/23 clavulanate 125 mg tablet lithium carbonate 300 mg tablet 300 mg PO DAILY 09/07/23 09/07/23 Previous Rx's Medication Instructions Recorded ondansetron 4 mg disintegrating 4 mg PO Q6H PRN #20 tabs 08/31/23 tablet Allergies Allergy/AdvReac Type Severity Reaction Status Date / Time No Known Allergies Allergy Verified 09/07/23 08:07 General Stated Complaint: Abd Prob MARKO: 3 Review of Systems All systems reviewed & are unremarkable except as noted in HPI and below Constitutional Constitutional: Reports as per HPI Gastrointestinal Gastrointestinal: Reports abdominal pain, Reports nausea and Reports vomiting Exam Narrative Exam Narrative: Constitutional: Alert and oriented x3. Appears stated age. Normal body habitus. Head: Normocephalic, no trauma. Eyes: Pupils PERRL, Red reflex noted, EOM's intact. Eyelids symmetrical without lesions, discharge, or swelling. Chest: RRR, Normal S1, S2, distal pulses intact. Resp: Lungs clear to auscultation bilaterally, no wheezes, rales, or rhonchi. Abdomen: Soft, non-distended, active Hyper active bowel sounds all 4 quads. Musculoskeletal: Normal gait, Moves all 4 extremities without difficulty. Skin: No suspicious rashes or lesions. Capillary refill less than 2 sec. Neurologic: Cranial nerves II-XII intact. Alert and oriented x 3. Motor: No deficits noted. Sensory: Intact bilaterally all 4 extremities. Hematologic/Lymphatic: No ecchymosis, no lymphadenopathy. Course Vital Signs Vital signs: Vital Signs Temperature 36.6 C 09/07/23 08:03 Pulse 97 H 09/07/23 08:03 Respiratory Rate 14 09/07/23 08:03 Blood Pressure 145/80 H 09/07/23 08:03 Pulse Oximetry 97 09/07/23 08:03 Temperature 36.6 C 09/07/23 08:03 Pulse 97 H 09/07/23 08:03 Respiratory Rate 14 09/07/23 08:03 Blood Pressure 145/80 H 09/07/23 08:03 Pulse Oximetry 97 09/07/23 08:03 Oxygen Delivery Method Room Air 09/07/23 08:03 Oxygen Flow Rate 0 09/07/23 08:03 Pain Level 7 09/07/23 08:03 Comment Abd pain 09/07/23 08:03 Lab/Test Results Lab/Test Results: Laboratory Tests Range/Units 09/07/23 08:25 WBC Cancelled RBC Cancelled Hgb Cancelled Hct Cancelled MCV Cancelled MCH Cancelled MCHC Cancelled RDW Cancelled Plt Count Cancelled MPV Cancelled Immature Gran % Cancelled Neutrophils % Cancelled Band Neutrophils % Cancelled Lymphocytes % Cancelled Atypical Lymphs % Cancelled Monocytes % Cancelled Eosinophils % Cancelled Basophils % Cancelled Metamyelocytes % Cancelled Myelocytes % Cancelled Promyelocytes % Cancelled Other Cells % Cancelled Nucleated RBC % Cancelled Absolute Neutrophils Cancelled Absolute Lymphocytes Cancelled Absolute Monocytes Cancelled Absolute Eosinophils Cancelled Absolute Basophils Cancelled RBC Morphology Cancelled Polychromasia Cancelled Hypochromasia Cancelled Poikilocytosis Cancelled Basophilic Stippling Cancelled Anisocytosis Cancelled Microcytosis Cancelled Macrocytosis Cancelled Spherocytes Cancelled Tear Drop Cells Cancelled Ovalocytes Cancelled Stomatocytes Cancelled Casanova-Candy Kitchen Bodies Cancelled Tyree Cells/Echinocytes Cancelled Acanthocytes (Spur) Cancelled Schistocytes Cancelled Sodium Cancelled Potassium Cancelled Chloride Cancelled Carbon Dioxide Cancelled Anion Gap Cancelled BUN Cancelled Creatinine Cancelled Est GFR (CKD-EPI 2020) Cancelled Glucose Cancelled Calcium Cancelled Magnesium Cancelled Total Bilirubin Cancelled AST Cancelled ALT Cancelled Alkaline Phosphatase Cancelled Total Protein Cancelled Albumin Cancelled Medical Decision Making 58-year-old male presents to the ER with a chief complaint of continued nausea vomiting sore throat. He was seen on 30 August and given Augmentin for presumptive strep and ear infection. He was also diagnosed at that time with mesenteric adenitis. He does have an appointment with his PCP next week. Initially abdominal pain workup ordered including CBC CMP urinalysis however, at this time he is declining any lab work he is requesting a work note. I did discuss his home care and strict return instructions he verbalized understanding. He is unsure if he has filled the Zofran that was prescribed for him a week ago. He is still taking the antibiotic. Past medical history includes hypertension, insulin-dependent diabetes, obesity, does heart murmur, aortic stenosis anxiety. Upon my physical examination he is alert and oriented x 4, speaking in full sentences, abdomen is soft with palpation no masses no guarding, lungs are clear to auscultation bilaterally. Informed by [employer] operations staff officer that he did get his Zofran filled and patient reports that he does have an appointment with his PCP at 0930 this morning, and that he is requesting to be discharged without further evaluation. Patient was seen here on 08/31/2023 and had extensive workup and CT abdomen pelvis. Patient discharged in hemodynamically stable, alert and oriented condition. Patient does not appear to be under the influence of substances, and appears to have capacity to make informed decisions. Patient discharged to follow-up with PCP given a work note rest this week. Discussed strict return instructions instructed to return if he changes his mind about workup. This text was generated using [employer] system, please disregard any oddities of phrase or misspellings. Medical Records Medical records reviewed: Yes I reviewed the patient's medical records. Medical records narrative: Seen in ED 08-31-23 Quality:SDOH Health Related Social Needs: No Data to Display PFSH All Active Problems (Updated 09/07/23 @ 08:41 by Kalli Prince NP) Nausea vomiting and diarrhea (Acute) Kidney lesion (Acute) Mesenteric adenitis (Acute) Vomiting and diarrhea (Acute) Santana sign present (Acute) Cervical spine arthritis (Acute) Paresthesia of hand, bilateral (Acute) Bilateral hand numbness (Acute) Carpal tunnel syndrome, bilateral (Acute) Superior labrum [id number] (SLAP) tear of left shoulder (Acute ~04/2022) Left shoulder pain (Acute) Medical History Mastoiditis External otitis of right ear Diabetes mellitus Obesity Quadriceps tendon rupture Constipation HTN (hypertension) Hx of adenomatous colonic polyps Rectal bleeding Prediabetes Jaw pain Heart murmur, systolic Aortic stenosis Anxiety Palpitations Tinea pedis Foot pain Surgical History Tonsillectomy Social History Smoking/Tobacco Use Status: Never Smoking risk assessment performed?: Yes Alcohol Intake: current Alcohol Intake frequency: a few times a week Alcohol type: beer and hard liquor Drug use: Never Substance use type: does not use Current gender identity: male Do you feel safe at home: Yes Do you feel safe in your relationship?: Yes
[2023-09-07 08:42] VITALS: BP 145/80; PULSE 97; RESP 14; TEMP 36.6; O2SAT 97
== END 2023-09-07 08:50 | disposition home or self-care (01) ==
LOC: ER 08:54
PROVIDERS: Emergency Provider Registered Nurse Emergency; PCP Family Medicine
DX: R11.2 Nausea with vomiting, unspecified (principal); R19.7 Diarrhea, unspecified; J02.9 Acute pharyngitis, unspecified; E11.9 Type 2 diabetes mellitus without complications; I10 Essential (primary) hypertension; Z79.4 Long term (current) use of insulin; Z79.84 Long term (current) use of oral hypoglycemic drugs
CPT/HCPCS: 80053; 99284; 83735; 85025

== ENCOUNTER 2023-09-07 13:03 | Outpatient (REF) | payer OTHER, SELFPAY ==
[2023-09-07 18:39] LABS: HCT 48.7 % (40.0-50.0); HGB 16.8 g/dL (13.5-17.5); MCH 28.8 pg (27.0-33.0); MCHC 34.5 % (32.0-36.0); MCV 84 fL (80-95); MPV 11.7 fL (8.0-11.0); Platelet Count 128 10^3/uL (130-400); RBC 5.83 10^6/uL (4.36-5.78); RDW 13.3 % (11.8-14.1); WBC 19.01 10^3/uL (4.4-10.8)
[2023-09-07 19:06] LABS: ALT 44 U/L (16-63); AST 16 U/L (15-37); Albumin 4.6 g/dL (3.4-5.0); Alkaline Phosphatase 90 U/L (46-116); Anion Gap 12.7 mmol/L (3-11); BUN 15 mg/dL (7-18); Bilirubin, Total 1.16 mg/dL (0.2-1.0); CO2 23.3 mmol/L (21.0-32.0); CREATININE 1.2 mg/dL (0.70-1.30); Calcium 9.9 mg/dL (8.5-10.1); Chloride 102 mmol/L (98-107); Estimated GFR 69.66 (mL/min/1.73m2); Glucose 262 mg/dL (74-106); Potassium 3.8 mmol/L (3.5-5.1); Sodium 138 mmol/L (136-145); Total Protein 7.9 g/dL (6.4-8.2)
== END 2023-09-07 13:04 | disposition home or self-care (01) ==
LOC: NCHCN 13:03
PROVIDERS: PCP Family Medicine; Visit Provider Nurse Practitioner Family
DX: R11.2 Nausea with vomiting, unspecified (principal); R19.7 Diarrhea, unspecified
CPT/HCPCS: 80053; 85027; 83735

== ENCOUNTER 2023-09-11 14:00 | Outpatient (CLI) | payer OTHER, SELFPAY ==
[2023-09-11 12:59] LABS: Bilirubin Negative (Negative); Blood Negative (Negative); Clarity Clear (Clear); Glucose >=1000 mg/dL (Negative); Ketones Negative (Negative); Leukocyte Esterase Negative (Negative); Nitrite Negative (Negative); Specific Gravity 1.015 (1.005-1.025); Urobilinogen 0.2 mg/dL (Up to 0.2); pH 5.5 (5-8)
[2023-09-11 13:04] LABS: Abs Immature Grans 0.13 10^3/uL (0.0-0.06); Absolute Eosinophil Count 0.68 10^3/uL (0.0-0.7); Absolute Lymphocyte Count 2.19 10^3/uL (1.2-3.4); Basophils % 0.9 %; Eosinophils % 4.5 %; HGB 16.8 g/dL (13.5-17.5); Immature Grans % 0.9 %; Lymphocytes % 14.5 %; MCHC 35.7 % (32.0-36.0); MCV 81 fL (80-95); MPV 11.3 fL (8.0-11.0); Monocytes % 5.8 %; Neutrophils % 73.4 %; Platelet Count 131 10^3/uL (130-400); RDW 13.2 % (11.8-14.1); RDW-SD 38.2 fL; WBC 15.12 10^3/uL (4.4-10.8)
[2023-09-11 13:14] LABS: Absolute Basophil Count 0.14 10^3/uL (0.0-0.2); Absolute Monocyte Count 0.88 10^3/uL (0.1-0.8)
[2023-09-11 13:19] LABS: ESR 4 mm/hr (0-20)
[2023-09-11 13:26] LABS: Bacteria Negative HPF (Negative); C & S Indicated? No; Casts Negative LPF (Negative); Crystals Negative HPF (Negative); Epithelial Cells Rare HPF (Negative); Mucus Negative (Negative); RBC 0-2 HPF (0-2); WBC 0-2 HPF (0-5)
[2023-09-11 13:40] LABS: ALT 36 U/L (16-63); AST 12 U/L (15-37); Albumin 4.4 g/dL (3.4-5.0); Alkaline Phosphatase 86 U/L (46-116); Anion Gap 12.8 mmol/L (3-11); BUN 13 mg/dL (7-18); Bilirubin, Total 1.06 mg/dL (0.2-1.0); CO2 23.2 mmol/L (21.0-32.0); CREATININE 1.1 mg/dL (0.70-1.30); Calcium 9.4 mg/dL (8.5-10.1); Chloride 101 mmol/L (98-107); Estimated GFR 77.33 (mL/min/1.73m2); Glucose 215 mg/dL (74-106); Magnesium 1.7 mg/dL (1.8-2.4); Potassium 3.5 mmol/L (3.5-5.1); Sodium 137 mmol/L (136-145); Total Protein 7.8 g/dL (6.4-8.2)
[2023-09-11 13:44] LABS: ETHANOL BLOOD < 3.0 mg/dL (<10)
== END 2023-09-11 14:01 | disposition home or self-care (01) ==
LOC: LBO 14:02
PROVIDERS: PCP Family Medicine; Visit Provider Registered Nurse
DX: F33.2 Major depressive disorder, recurrent severe without psychotic features (principal); F41.1 Generalized anxiety disorder
CPT/HCPCS: 36415; 80053; 85652; 80320; 81003; 81015; 83735; 85025

== ENCOUNTER 2023-09-15 15:28 | Outpatient (REF) | payer OTHER, SELFPAY ==
[2023-09-15 16:29] LABS: Lithium < 0.2 mmol/L (0.6-1.2)
== END 2023-09-15 15:29 | disposition home or self-care (01) ==
LOC: NCHCN 15:28
PROVIDERS: PCP Family Medicine; Visit Provider Family Medicine
DX: F33.2 Major depressive disorder, recurrent severe without psychotic features (principal); F41.1 Generalized anxiety disorder; Z51.81 Encounter for therapeutic drug level monitoring; Z79.899 Other long term (current) drug therapy
CPT/HCPCS: 80178

== ENCOUNTER 2024-03-09 18:20 | Outpatient (REF) | payer OTHER, SELFPAY ==
[2024-03-09 19:02] LABS: HCT 43.7 % (40.0-50.0); HGB 15.2 g/dL (13.5-17.5); MCH 28.4 pg (27.0-33.0); MCHC 34.8 % (32.0-36.0); MCV 82 fL (80-95); MPV 12.6 fL (8.0-11.0); Platelet Count 108 10^3/uL (130-400); RBC 5.36 10^6/uL (4.36-5.78); RDW 13.1 % (11.8-14.1); RDW-SD 37.8 fL; WBC 16.73 10^3/uL (4.4-10.8)
[2024-03-09 19:13] LABS: ALT 28 U/L (16-63); AST 16 U/L (15-37); Albumin 4.3 g/dL (3.4-5.0); Alkaline Phosphatase 81 U/L (46-116); Anion Gap 13.1 mmol/L (3-11); BUN 18 mg/dL (7-18); Bilirubin, Total 0.53 mg/dL (0.2-1.0); CO2 22.9 mmol/L (21.0-32.0); CREATININE 1.5 mg/dL (0.70-1.30); Calcium 9.7 mg/dL (8.5-10.1); Chloride 106 mmol/L (98-107); Estimated GFR 52.97 (mL/min/1.73m2); Glucose 143 mg/dL (74-106); Potassium 3.6 mmol/L (3.5-5.1); Sodium 142 mmol/L (136-145); Total Protein 6.9 g/dL (6.4-8.2)
[2024-03-09 20:02] LABS: Lithium 0.4 mmol/L (0.6-1.2)
== END 2024-03-09 18:21 | disposition home or self-care (01) ==
LOC: NCHCN 18:20
PROVIDERS: PCP Family Medicine; Visit Provider Family Medicine
DX: Z51.81 Encounter for therapeutic drug level monitoring (principal); I10 Essential (primary) hypertension
CPT/HCPCS: 80053; 85027; 80178

== ENCOUNTER 2024-03-29 03:18 | Outpatient (CLI) | payer OTHER, SELFPAY ==
[2024-03-29 16:14] LABS: Lithium 0.4 mmol/L (0.6-1.2)
== END 2024-03-29 03:19 | disposition home or self-care (01) ==
LOC: LBO 03:18
PROVIDERS: PCP Family Medicine; Visit Provider Registered Nurse
DX: F33.2 Major depressive disorder, recurrent severe without psychotic features (principal); F41.1 Generalized anxiety disorder; Z56.6 Other physical and mental strain related to work; Z51.81 Encounter for therapeutic drug level monitoring
CPT/HCPCS: 36415; 80178

== ENCOUNTER 2024-05-12 05:25 | Emergency (ER) | payer OTHER, SELFPAY ==
[2024-05-12 05:27] VITALS: BP 154/80; PULSE 86; RESP 20; TEMP 36.4; O2SAT 98
--- NOTE | 2024-05-12 05:45 | ED.GENADUL_ITS ---
Discharge Plan Discharge Details Chief Complaint: PsychEval Clinical Impression: Depression with suicidal ideation Primary Care Provider: Rajwinder Garcia ED Provider: Virgilio Hennessy Home Meds and New Rx's Prescriptions: No Action lisinopril 10 mg tablet 40 mg PO DAILY Patient Comments: 10.14.17 pt states current dose is 40mg qday.HE lisinopril 30 mg tablet 30 mg PO DAILY diazepam [Valium] 2 mg tablet 2 mg PO BID PRN Trulicity 4.5 mg/0.5 mL pen injector 4.5 mg subcut QWEEK Jardiance 25 mg tablet 25 mg PO DAILY insulin degludec [Tresiba FlexTouch U-200] 200 unit/mL (3 mL) insulin pen 160 unit SUBCUT DAILY Patient Comments: INJECT 100 UNITS INTO THE SKIN UNDER THE SKIN ONCE DAILY, TITRATE FOR FASTING SUGARS UNDER 140-MAX OF 160 UNITS Vraylar 3 mg capsule 3 mg PO DAILY Patient Comments: TAKE ONE CAPSULE BY MOUTH EVERY DAY Levemir FlexTouch U100 Insulin 100 unit/mL (3 mL) insulin pen 160 unit SUBCUT DAILY lithium carbonate 300 mg tablet 300 mg PO DAILY lithium carbonate 300 mg capsule 300 mg PO QPM Patient Comments: TAKE ONE CAPSULE BY MOUTH AT BEDTIME WITH 600MG CAPSULE lithium carbonate 600 mg capsule 600 mg PO BID Patient Comments: TAKE ONE CAPSULE BY MOUTH TWICE A DAY HPI General Date/Time Provider Initiated Documentation: 05/12/24 05:43 . HPI Narrative: This is a very pleasant 59-year-old male with a past medical history of depression, diabetes, who presents today for evaluation of depression. Patient normally is on lithium which she has not been taking for some time. Additionally he was on Vraylar for his depression but also stopped about a month or so ago because insurance would no longer pay for it. He states that over the last month or so he has become more and more depressed, and this is notably exacerbated over the last week or so. He admits to anhedonia, difficulty sleeping. He has not been showering. He feels very stressed and wants to end his life. He has a plan for doing this and this includes taking his car out to the chambers and drowning himself in the winter. He does not live with anyone at home. He denies any auditory or visual hallucinations. He has sought counseling, and they recommend he come in for inpatient psychiatric care. He denies any history of needing to be admitted for depression in the past. He denies any homicidal ideations Related Data Home Medications ?Medication ?Instructions ?Recorded ?Confirmed lisinopril 10 mg tablet 40 mg PO DAILY 02/08/20 05/12/24 insulin detemir U-100 100 unit/mL 160 unit subcut DAILY 10/14/22 05/12/24 (3 mL) subcutaneous pen (Levemir FlexTouch U-100 Insulin) cariprazine 3 mg capsule (Vraylar) 3 mg PO DAILY 08/31/23 05/12/24 empagliflozin 25 mg tablet 25 mg PO DAILY 08/31/23 05/12/24 (Jardiance) insulin degludec 200 unit/mL (3 160 unit subcut DAILY 08/31/23 05/12/24 mL) subcutaneous pen (Tresiba FlexTouch U-200 insulin) lithium carbonate 300 mg tablet 300 mg PO DAILY 09/07/23 05/12/24 diazepam 2 mg tablet (Valium) 2 mg PO BID PRN 09/16/23 05/12/24 dulaglutide 4.5 mg/0.5 mL 4.5 mg subcut QWEEK 09/16/23 05/12/24 subcutaneous pen injector (Trulicity) lisinopril 30 mg tablet 30 mg PO DAILY 09/16/23 05/12/24 lithium carbonate 300 mg capsule 300 mg PO QPM 05/12/24 05/12/24 lithium carbonate 600 mg capsule 600 mg PO BID 05/12/24 05/12/24 Allergies Allergy/AdvReac Type Severity Reaction Status Date / Time No Known Allergies Allergy Verified 05/12/24 05:32 General Stated Complaint: PsychEval MARKO: 2 Exam Narrative Exam Narrative: 1.Const: Well-nourished, Well-developed, appearing stated age 2.Eyes: PERRL, no conjunctival injection, and symmetrical lids. 3.ENT: Atraumatic external nose and ears. Moist MM. Neck: Symmetric, trachea midline, No thyromegaly. 4.CVS: +S1/S2, Peripheral pulses 2+ and equal in all extremities. Brisk capillary refill in all extremities. 5.RESP: Unlabored respiratory effort. Clear to auscultation bilaterally. No wheezes rales or rhonchi 6.GI: Soft, Nontender/Nondistended, No hepatosplenomegaly. No guarding or rebound. 7.MSK: Normocephalic/Atraumatic, Extremities w/o deformity or ttp No cyanosis or clubbing, Normal movement of all extremities 8.Skin: Warm, Dry. No rashes or lesions. 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 Sensation grossly intact, no focal neurologi c deficits. 10.Psych: (AAO) x3. Notably flat affect and mood Course Vital Signs Vital signs: Vital Signs Temperature 36.4 C L 05/12/24 05:27 Pulse 86 05/12/24 05:27 Respiratory Rate 20 05/12/24 05:27 Blood Pressure 154/80 H 05/12/24 05:27 Pulse Oximetry 98 05/12/24 05:27 Temperature 36.4 C L 05/12/24 05:27 Temperature Source Temporal Artery Scan 05/12/24 05:27 Pulse 86 05/12/24 05:27 Respiratory Rate 20 05/12/24 05:27 Blood Pressure 154/80 H 05/12/24 05:27 Blood Pressure Position Sitting 05/12/24 05:27 Pulse Oximetry 98 05/12/24 05:27 Oxygen Delivery Method Room Air 05/12/24 05:27 Oxygen Flow Rate 0 05/12/24 05:27 Pain Level 8 05/12/24 05:27 Medical Decision Making This is a very pleasant 59-year-old male with a past medical history of depression, diabetes, who presents today for evaluation of depression. Patient normally is on lithium which she has not been taking for some time. Additionally he was on Vraylar for his depression but also stopped about a month or so ago because insurance would no longer pay for it. He states that over the last month or so he has become more and more depressed, and this is notably exacerbated over the last week or so. He admits to anhedonia, difficulty sleeping. He has not been showering. He feels very stressed and wants to end his life. He has a plan for doing this and this includes taking his car [place] to the [place] and drowning himself in the winter. He does not live with anyone at home. He denies any auditory or visual hallucinations. He has sought counseling, and they recommend he come in for inpatient psychiatric care. He denies any history of needing to be admitted for depression in the past. He denies any homicidal ideations Exam demonstrates a notably flat affect, patient appears somewhat disheveled. He has not been caring for himself. We will medically clear, reach out to mental health. With his plan I do feel that he would benefit from inpatient admission. He is here voluntarily and seeking help that way. That being said, I do not feel that we have a safe disposition plan for outpatient management at this time and I will recommend inpatient admission. 6:37 AM Patient has been seen and assessed by mental health. They to recommend voluntary admission. [place] He does request [facility] preferentially due to its close proximity to this area. Referrals will be sent to there. Still pending the remainder of his workup. 7:20 AM Patient does have an elevated white count but review of prior labs demonstrate that this appears to be near his baseline. Electrolytes otherwise stable. He does show evidence of mild dehydration. Salicylates and acetaminophen negative. [place] level is therapeutic. We will order telepsych for further discussion of depression medication. Pending placement at this time. Patient does not have a clinical assessment at this time which would be appropriate for safety planning home. If the patient does try to leave, I do feel that this would necessitate EE secondary to the concern for his safety. Quality:SDOH Health Related Social Needs: No Data to Display PFSH All Active Problems (Updated 05/12/24 @ 07:22 by Virgilio Hennessy DO) Depression with suicidal ideation (Acute) Santana sign present (Acute) Cervical spine arthritis (Acute) Paresthesia of hand, bilateral (Acute) Bilateral hand numbness (Acute) Carpal tunnel syndrome, bilateral (Acute) Superior labrum [id number] (SLAP) tear of left shoulder (Acute ~04/2022) Left shoulder pain (Acute) Medical History Mastoiditis External otitis of right ear Diabetes mellitus Obesity Quadriceps tendon rupture Constipation HTN (hypertension) Hx of adenomatous colonic polyps Rectal bleeding Prediabetes Jaw pain Heart murmur, systolic Aortic stenosis Anxiety Palpitations Tinea pedis Foot pain Surgical History Tonsillectomy Social History Smoking/Tobacco Use Status: Never Smoking risk assessment performed?: Yes Alcohol Intake: current Alcohol Intake frequency: a few times a week Alcohol type: beer and hard liquor Drug use: Never Substance use type: does not use Housing: apartment Current gender identity: male Do you feel safe at home: Yes Do you feel safe in your relationship?: Yes Additional Social history: Lives alone 05/12/24
[2024-05-12 06:17] LABS: Abs Immature Grans 0.23 10^3/uL (0.0-0.06); Absolute Monocyte Count 0.87 10^3/uL (0.1-0.8); Basophils % 0.7 %; Eosinophils % 2.9 %; HCT 48.2 % (40.0-50.0); HGB 16.1 g/dL (13.5-17.5); Immature Grans % 1.2 %; Lymphocytes % 12.6 %; MCH 28.4 pg (27.0-33.0); MCHC 33.4 % (32.0-36.0); MCV 85 fL (80-95); Monocytes % 4.4 %; Neutrophils % 78.2 %; Platelet Count 117 10^3/uL (130-400); RBC 5.66 10^6/uL (4.36-5.78); RDW 14.1 % (11.8-14.1); RDW-SD 43.4 fL; WBC 19.73 10^3/uL (4.4-10.8)
[2024-05-12 06:19] LABS: Absolute Basophil Count 0.14 10^3/uL (0.0-0.2); Absolute Eosinophil Count 0.57 10^3/uL (0.0-0.7); Absolute Lymphocyte Count 2.49 10^3/uL (1.2-3.4); Absolute Neutrophil Count 15.43 10^3/uL (1.2-6.7)
[2024-05-12 06:35] LABS: *AMPHETAMINES SCREEN URINE Negative (Negative); *BARBITURATES SCREEN URINE Negative (Negative); *BENZODIAZEPINES SCREEN URINE Negative (Negative); Cannabinoids THC Negative (Negative); Cocaine Screen,Urine Negative (Negative); METHADONE URINE SCREEN Negative (Negative); OPIATES URINE SCREEN Negative (Negative)
[2024-05-12 06:36] LABS: Tricyclic Antidepressants Negative (Negative)
--- NOTE | 2024-05-12 06:46 | PDOC.MHCN_ITS ---
Date of service: 05/12/24 Time of Service: 06:00 PHQ-9 Over the last 2 weeks, how often have you been bothered by any of the following problems? 1. Little interest or pleasure in doing things: nearly every day 2. Feeling down, depressed, or hopeless: nearly every day 3. Trouble falling or staying asleep, or sleeping too much: nearly every day 4. Feeling tired or having little energy: nearly every day 5. Poor appetite or overeating: nearly every day 6. Feeling bad about yourself - or that you are a failure or have let yourself and your family down: nearly every day 7. Trouble concentrating on things, such as reading the newspaper or watching television: nearly every day 8. Moving or speaking so slowly that other people could have noticed? - Or the opposite - being so fidgety or restless that you have been moving around a lot more than usual: nearly every day 9. Thoughts that you would be better off or of hurting yourself in some way: nearly every day Total score: 27 If you checked off any problems, how difficult have these problems made it for you to do your work, take care of things at home, or get along with other people?: extremely difficult Source: Developed by Drs. Nicholas Boo, Pauly Urias, Isaias Pena and colleagues, with an educational demario from [employer]. Suicide Severity Rate CSSRS Have you wished you were or wished you could go to sleep and not wake up?: Yes Have you actually had any thoughts of killing yourself?: Yes CSSRS2 Have you been thinking about how you might do this?: Yes Have you had these thoughts and had some intention of acting on them?: Yes Have you started to work out or worked out the details of how to kill yourself? Do you intend to carry out this plan?: Yes CSSRS3 Have you ever done anything, started to do anything or prepared to do anything to end your life?: No CSSRS4 Was this within the past three months?: No Screening Score Total Score: 4 Screening: Positive Mental Health Emergency Note Release [facility] release signed:: No Reason for Visit anxiety/depression In the last 2 weeks has the pt presented for ES prior to today?: Unknown Client Information Client is: Adult Outpatient Well Housed: Yes Non Suicidal Self Injury Current: No History: No Safety Risk/Harm to Self or Others Current Ideation to Harm Self or Others: Yes to self. Intent: yes, has intent. Plan: yes,has a plan. Risk: Does risk to harm exist?: yes. Risk: Moderate Risk Duty to warn indicated: No Asssessment/Mental Status Appearance: Other (paper clothing) Attitude: Cooperative Behavior: Unremarkable Speech: Normal Affect: Normal Mood: Stressed, Depressed and Anxious Thought process: Goal directed Hallucinations: No Delusions: No Attention: Unremarkable Perception: Not impaired Orientation: Fully orientated Memory: Intact Insight: Good Judgement: Fair Neurovegetative Symptoms Sleep: Decrease Appetitie: Decrease Interests: Decrease Energy: Decrease Libido: Not applicable Substance Use: Do you use nicotine?: No Have you used substances in the last 7 days?: No Additional Issues: Assaultive/Threatening Behavior: No Medical Concerns: No Client engaged in active self harm w/weapon: No Threatening to run away: No Child reported abuse/neglect: No Voluntarily presenting for services: Yes Domestic violence is a concern: No Extreme Psychosis or extreme behavior is present: No Plan/Disposition Recommended Disposition: Hospitalization facilities contacted. Plan: Client is agreement to seek inpatient hospitalization for med evaluation, client asks that he not go far from home. Client was referred to [facility] Person reported agreement to plan: Yes Reports/communication Outcome discussed with: ED/Personnel
[2024-05-12 06:49] LABS: Lithium 0.7 mmol/L (0.6-1.2)
[2024-05-12 06:54] LABS: Acetaminophen < 2 ug/mL (10-30); Salicylate < 2.8 mg/dL (<2.8)
[2024-05-12 07:03] LABS: ALT 28 U/L (16-63); AST 12 U/L (15-37); Albumin 4.3 g/dL (3.4-5.0); Alkaline Phosphatase 94 U/L (46-116); Anion Gap 15.2 mmol/L (3-11); BUN 11 mg/dL (7-18); Bilirubin, Total 0.7 mg/dL (0.2-1.0); CO2 25.8 mmol/L (21.0-32.0); CREATININE 1.3 mg/dL (0.70-1.30); Calcium 9.4 mg/dL (8.5-10.1); Chloride 102 mmol/L (98-107); ETHANOL BLOOD < 3.0 mg/dL (<10); Estimated GFR 62.89 (mL/min/1.73m2); Glucose 105 mg/dL (74-106); Potassium 3.2 mmol/L (3.5-5.1); Sodium 143 mmol/L (136-145); TSH (W/Ref FT4) 3.71 uIU/mL (0.36-3.74); Total Protein 7.7 g/dL (6.4-8.2)
--- NOTE | 2024-05-12 07:09 | ED.PROG_ITS ---
Date of service: 05/12/24 Time of Service: 07:00 Medical Decision Making In brief, this is a 59-year-old male patient presenting for evaluation of suicidal ideation with plan to drive into a chambers, boarding in our emergency department voluntarily awaiting placement. Prior to my taking over their care, the patient was medically cleared, and has been resting comfortably. They have met with the child protective services social worker and we are awaiting final dispo. They have not required any additional medications for restraint or sedation. We will obtain a telepsychiatry consult for assistance in medication management given that the patient has been unable to afford his atypical antipsychotic for his severe depression. The patient was signed out to the oncoming provider prior to final disposition. Remained hemodynamically appropriate, calm, cooperative, and comfortable while under my care. Jailene Vázquez MD Medical Records Medical records reviewed: Yes I reviewed the patient's medical records. Lab Data Lab results reviewed: Yes I reviewed the patient's lab results. Quality:SDOH Health Related Social Needs: No Data to Display Discharge Plan Discharge Details Chief Complaint: PsychEval Clinical Impression: Depression with suicidal ideation Primary Care Provider: Rajwinder Garcia ED Provider: Jailene Vázquez Home Meds and New Rx's Prescriptions: No Action lisinopril 10 mg tablet 40 mg PO DAILY Patient Comments: 10.14.17 pt states current dose is 40mg qday.HE lisinopril 30 mg tablet 30 mg PO DAILY diazepam [Valium] 2 mg tablet 2 mg PO BID PRN Trulicity 4.5 mg/0.5 mL pen injector 4.5 mg subcut QWEEK Jardiance 25 mg tablet 25 mg PO DAILY insulin degludec [Tresiba FlexTouch U-200] 200 unit/mL (3 mL) insulin pen 160 unit SUBCUT DAILY Patient Comments: INJECT 100 UNITS INTO THE SKIN UNDER THE SKIN ONCE DAILY, TITRATE FOR FASTING SUGARS UNDER 140-MAX OF 160 UNITS Vraylar 3 mg capsule 3 mg PO DAILY Patient Comments: TAKE ONE CAPSULE BY MOUTH EVERY DAY Levemir FlexTouch U100 Insulin 100 unit/mL (3 mL) insulin pen 160 unit SUBCUT DAILY lithium carbonate 300 mg tablet 300 mg PO DAILY lithium carbonate 300 mg capsule 300 mg PO QPM Patient Comments: TAKE ONE CAPSULE BY MOUTH AT BEDTIME WITH 600MG CAPSULE lithium carbonate 600 mg capsule 600 mg PO BID Patient Comments: TAKE ONE CAPSULE BY MOUTH TWICE A DAY
[2024-05-12] MEDS: Empaglifozin 25 MG TAB PO (08:09)
[2024-05-12] MEDS: Lisinopril 10 MG TAB 30 MG PO (08:09)
[2024-05-12] MEDS: Lithium Carbonate 300 MG CAP 600 MG PO ×2 (08:09→20:52)
[2024-05-12 10:23] LABS: Bilirubin Negative (Negative); Blood Negative (Negative); Clarity Clear (Clear); Glucose 500 mg/dL (Negative); Ketones Negative (Negative); Leukocyte Esterase Negative (Negative); Nitrite Negative (Negative); Specific Gravity 1.015 (1.005-1.025); Urobilinogen 0.2 mg/dL (Up to 0.2)
[2024-05-12] MEDS: diazePAM 2 MG TAB PO ×2 (12:38→20:56)
--- NOTE | 2024-05-12 16:39 | W.EDPROG ---
Date of service: 05/12/24 Time of Service: 16:39 Medical Decision Making Patient seeking voluntary placement for depression and SI, no issues reported on prior shift and no new acute complaints. Telepsych consult pending. Will continue to monitor until safe disposition found Quality:SDOH Health Related Social Needs: No Data to Display Discharge Plan Discharge Details Chief Complaint: PsychEval Clinical Impression: Depression with suicidal ideation Primary Care Provider: Rajwinder Garcia ED Provider: Jared Conroy Home Meds and New Rx's Prescriptions: No Action lisinopril 10 mg tablet 40 mg PO DAILY Patient Comments: 10.14.17 pt states current dose is 40mg qday.HE lisinopril 30 mg tablet 30 mg PO DAILY diazepam [Valium] 2 mg tablet 2 mg PO BID PRN Trulicity 4.5 mg/0.5 mL pen injector 4.5 mg subcut QWEEK Jardiance 25 mg tablet 25 mg PO DAILY insulin degludec [Tresiba FlexTouch U-200] 200 unit/mL (3 mL) insulin pen 160 unit SUBCUT DAILY Patient Comments: INJECT 100 UNITS INTO THE SKIN UNDER THE SKIN ONCE DAILY, TITRATE FOR FASTING SUGARS UNDER 140-MAX OF 160 UNITS Vraylar 3 mg capsule 3 mg PO DAILY Patient Comments: TAKE ONE CAPSULE BY MOUTH EVERY DAY Levemir FlexTouch U100 Insulin 100 unit/mL (3 mL) insulin pen 160 unit SUBCUT DAILY lithium carbonate 300 mg tablet 300 mg PO DAILY lithium carbonate 300 mg capsule 300 mg PO QPM Patient Comments: TAKE ONE CAPSULE BY MOUTH AT BEDTIME WITH 600MG CAPSULE lithium carbonate 600 mg capsule 600 mg PO BID Patient Comments: TAKE ONE CAPSULE BY MOUTH TWICE A DAY
--- NOTE | 2024-05-12 17:26 | CMSP_ITS ---
Date of service: 05/12/24 Time of Service: 17:26 Care Management Safety Plan Status Status: Voluntary Reason for Wait Reason for Wait: Inpatient Admission Safety Plan Safety Plan: VOLUNTARY FOR INPATIENT PSYCHIATRIC STABILIZATION.? Patient is appropriate in all interactions since arriving at [facility]; Pt has demonstrated appropriate coping and communication skills, has articulated his or her needs and concerns and is fully engaged during staff interactions. Safety plan has been established with patient, and care team, to adhere to patient goals, identify restrictions based on behavioral status, address nutrition, and determine allowed personal belongings, tools for hygiene and personal care. Determine level of activity including ambulation, level of superv ision, visitors, and determine privileges based on behaviors and level of engagement by pt. VOLUNTARY SAFETY PLAN: 1. Will remain on suicide precautions, in paper clothes 2. Will remain in Zone B under direct supervision of one-on-one staff at all times provided by [employer]; BELKIS, POWDER MIXER staff respiratory therapist. 3. May have paper cups, plates, finger foods as well as a cardboard spoon with which to eat meals. 4. Follow [facility] Management of the Admitted Behavioral Health Patient policy. 5. Shower available in Zone B without restriction. 6. Personal belongings-soft items permitted at RN discretion. 7. Visitors-none at this time. 8. Activities: soft cart items approved per RN discretion. 9.? Bathroom available in Zone B without restriction. 10. Phone: limited to [facility] cordless phone at RN discretion. Due to VOLUNTARY status, if patient wishes to leave [facility], staff will contact [facility] Crisis Screener ([phone]) and Documentation Lead ([phone]) as soon as possible. In the event of elopement, notify [place] [employer] ([phone]). Patient is currently voluntarily at [facility] and seeking inpatient admission when a bed becomes available. [facility] Frontline Key Account Director will continue seeking placement. Please contact the Documentation Lead ([phone]) and [facility] Key Account Director ([phone]) for any needed changes in the Safety Plan. Safety plan has been provided to interdepartmental care team.
--- NOTE | 2024-05-12 17:26 | PDOC.CMSAFE ---
Date of service: 05/12/24 Time of Service: 17:26 Care Management Safety Plan Status Status: Voluntary Reason for Wait Reason for Wait: Inpatient Admission Safety Plan Safety Plan: VOLUNTARY FOR INPATIENT PSYCHIATRIC STABILIZATION.? Patient is appropriate in all interactions since arriving at [facility]; Pt has demonstrated appropriate coping and communication skills, has articulated his or her needs and concerns and is fully engaged during staff interactions. Safety plan has been established with patient, and care team, to adhere to patient goals, identify restrictions based on behavioral status, address nutrition, and determine allowed personal belongings, tools for hygiene and personal care. Determine level of activity including ambulation, level of supervision, visitors, and determine privileges based on behaviors and level of engagement by pt. VOLUNTARY SAFETY PLAN: 1. Will remain on suicide precautions, in paper clothes 2. Will remain in Zone B under direct supervision of one-on-one staff at all times provided by [employer]; BELKIS, COMPUTATIONAL LINGUIST bobbin collector. 3. May have paper cups, plates, finger foods as well as a cardboard spoon with which to eat meals. 4. Follow [facility] Management of the Admitted Behavioral Health Patient policy. 5. Shower available in Zone B without restriction. 6. Personal belongings-soft items permitted at RN discretion. 7. Visitors-none at this time. 8. Activities: soft cart items approved per RN discretion. 9.? Bathroom available in Zone B without restriction. 10. Phone: limited to [facility] cordless phone at RN discretion. Due to VOLUNTARY status, if patient wishes to leave [facility], staff will contact [facility] Crisis Screener ([phone]) and Control Engineer ([phone]) as soon as possible. In the event of elopement, notify [facility] Police ([phone]). Patient is currently voluntarily at [facility] and seeking inpatient admission when a bed becomes available. [facility] Frontline And Rescue Fire Fighter Crash Fire will continue seeking placement. Please contact the Control Engineer ([phone]) and [facility] And Rescue Fire Fighter Crash Fire ([phone]) for any needed changes in the Safety Plan. Safety plan has been provided to interdepartmental care team.
--- NOTE | 2024-05-12 17:28 | CMPROGNOTE_ITS ---
Date of service: 05/12/24 Time of Service: 17:29 Care Management Progress Note Progress Note Text Progress Note Text: CM discussed the plan of care for Santino with his primary RN and [facility] staff. Per RN, Santino has been appropriate and cooperative in all interactions. He has stated at times that he wants to leave, but after talking with his RN, he is agreeable to staying voluntarily, and understands that he will benefit from psychiatric treatment. Per report, he has siblings, but they are not local. He does not have any known supports in the community. Per [facility], Santino's insurance stopped paying for his psychiatric medication recently, which is likely contributing to his presentation. He reported to [facility] that he planned to go to a bridge and end it all. He reportedly has been anxious about missing work. Per report, he has been attempting to reach his work to speak to HR today. Santino is voluntary, seeking inpatient psychiatric treatment. Referrals have been sent; safety plan in place. CM will continue to follow. Social Determinants of Health Screening Will the Patient Participate in the Screening?: Unable to obtain
[2024-05-12] MEDS: Lithium Carbonate 300 MG CAP PO (20:52)
--- NOTE | 2024-05-13 01:05 | W.EDPROG ---
Date of service: 05/13/24 Time of Service: 01:05 Medical Decision Making Patient stable throughout the night, no interventions needed, still pending telepsych assessment. Quality:SDOH Health Related Social Needs: No Data to Display Discharge Plan Disposition Patient Disposition: Psychiatric Hospital/Unit Specific Psychiatric Facility: [facility] Medical[facility]Psychiatric Unit Discharge Details Clinical Impression: Depression with suicidal ideation Primary Care Provider: Rajwinder Garcia ED Provider: Nuvia Salinas Home Meds and New Rx's Prescriptions: No Action lisinopril 10 mg tablet 40 mg PO DAILY Patient Comments: 10.14.17 pt states current dose is 40mg qday.HE lisinopril 30 mg tablet 30 mg PO DAILY diazepam [Valium] 2 mg tablet 2 mg PO BID PRN Trulicity 4.5 mg/0.5 mL pen injector 4.5 mg subcut QWEEK Jardiance 25 mg tablet 25 mg PO DAILY insulin degludec [Tresiba FlexTouch U-200] 200 unit/mL (3 mL) insulin pen 160 unit SUBCUT DAILY Patient Comments: INJECT 100 UNITS INTO THE SKIN UNDER THE SKIN ONCE DAILY, TITRATE FOR FASTING SUGARS UNDER 140-MAX OF 160 UNITS Vraylar 3 mg capsule 3 mg PO DAILY Patient Comments: TAKE ONE CAPSULE BY MOUTH EVERY DAY Levemir FlexTouch U100 Insulin 100 unit/mL (3 mL) insulin pen 160 unit SUBCUT DAILY lithium carbonate 300 mg tablet 300 mg PO DAILY lithium carbonate 300 mg capsule 300 mg PO QPM Patient Comments: TAKE ONE CAPSULE BY MOUTH AT BEDTIME WITH 600MG CAPSULE lithium carbonate 600 mg capsule 600 mg PO BID Patient Comments: TAKE ONE CAPSULE BY MOUTH TWICE A DAY Discharge Data Discharge Date/Time-TO BE ENTERED AT DEPARTURE: 05/14/24 08:55
--- NOTE | 2024-05-13 05:29 | NUR.NOTE ---
[facility] Called ans said the pt accepted and a bed will be held. [facility] can't accept without insurance prior authorization.
--- NOTE | 2024-05-13 08:02 | W.EDPROG ---
Date of service: 05/13/24 Time of Service: 08:02 Medical Decision Making I received signout on this 59-year-old male in the emergency department voluntarily medically stable. He has had increased depression with a plan to kill himself. He remains voluntary. Home medication of lithium ordered though patient has not been on his other antipsychotic appetite suppression. If patient remains in the department over the course of the day he will require telepsych consultation to discuss medications. He has tentatively been accepted to [facility]. He has a regular carb consistent diet. He is not in DKA. I adjusted his insulin medications with consultation from pharmacy. 3:30 PM Patient reportedly will not go to [facility] until tomorrow. I have pursued a psychiatric consultation and signed patient to evening provider. Quality:[facility] Health Related Social Needs: No Data to Display Discharge Plan Discharge Details Chief Complaint: PsychEval Clinical Impression: Depression with suicidal ideation Primary Care Provider: Rajwinder Garcia ED Provider: Quinn Cheng Spencer Meds and New Rx's Prescriptions: No Action lisinopril 10 mg tablet 40 mg PO DAILY Patient Comments: 10.14.17 pt states current dose is 40mg qday.HE lisinopril 30 mg tablet 30 mg PO DAILY diazepam [Valium] 2 mg tablet 2 mg PO BID PRN Trulicity 4.5 mg/0.5 mL pen injector 4.5 mg subcut QWEEK Jardiance 25 mg tablet 25 mg PO DAILY insulin degludec [Tresiba FlexTouch U-200] 200 unit/mL (3 mL) insulin pen 160 unit SUBCUT DAILY Patient Comments: INJECT 100 UNITS INTO THE SKIN UNDER THE SKIN ONCE DAILY, TITRATE FOR FASTING SUGARS UNDER 140-MAX OF 160 UNITS Vraylar 3 mg capsule 3 mg PO DAILY Patient Comments: TAKE ONE CAPSULE BY MOUTH EVERY DAY Levemir FlexTouch U100 Insulin 100 unit/mL (3 mL) insulin pen 160 unit SUBCUT DAILY lithium carbonate 300 mg tablet 300 mg PO DAILY lithium carbonate 300 mg capsule 300 mg PO QPM Patient Comments: TAKE ONE CAPSULE BY MOUTH AT BEDTIME WITH 600MG CAPSULE lithium carbonate 600 mg capsule 600 mg PO BID Patient Comments: TAKE ONE CAPSULE BY MOUTH TWICE A DAY
[2024-05-13] MEDS: Lithium Carbonate 300 MG CAP 600 MG PO ×2 (09:08→20:06)
[2024-05-13] MEDS: Lisinopril 10 MG TAB 30 MG PO (09:08)
[2024-05-13] MEDS: Empaglifozin 25 MG TAB PO (09:08)
[2024-05-13] MEDS: Insulin Glargine 300 UNITS/3 ML PEN 80 UNITS SC ×2 (10:25→21:09)
--- NOTE | 2024-05-13 13:54 | PDOC.MHPN2 ---
Date of service: 05/12/24 Time of Service: 11:00 PHQ-9 Over the last 2 weeks, how often have you been bothered by any of the following problems? 1. Little interest or pleasure in doing things: several days 2. Feeling down, depressed, or hopeless: more than half the days 3. Trouble falling or staying asleep, or sleeping too much: more than half the days 4. Feeling tired or having little energy: several days 5. Poor appetite or overeating: more than half the days 6. Feeling bad about yourself - or that you are a failure or have let yourself and your family down: more than half the days 7. Trouble concentrating on things, such as reading the newspaper or watching television: several days 8. Moving or speaking so slowly that other people could have noticed? - Or the opposite - being so fidgety or restless that you have been moving around a lot more than usual: several days 9. Thoughts that you would be better off or of hurting yourself in some way: several days Total score: 13 Source: Developed by Drs. Nicholas Boo, Pauly Urias, Isaias Pena and colleagues, with an educational demario from [employer]. Suicide Severity Rate CSSRS Have you wished you were or wished you could go to sleep and not wake up?: Yes Have you actually had any thoughts of killing yourself?: Yes CSSRS2 Have you been thinking about how you might do this?: Yes Have you had these thoughts and had some intention of acting on them?: No Have you started to work out or worked out the details of how to kill yourself? Do you intend to carry out this plan?: No CSSRS3 Have you ever done anything, started to do anything or prepared to do anything to end your life?: No CSSRS4 Was this within the past three months?: Yes Screening Score Total Score: 6 Screening: Positive Mental Health Emergency Note Release [facility] release signed:: Yes Reason for Visit Severe SI, depression, anxiety In the last 2 weeks has the pt presented for ES prior to today?: No Client Information Client is: Adult Outpatient Well Housed: Yes Non Suicidal Self Injury Current: No History: No Safety Risk/Harm to Self or Others Current Ideation to Harm Self or Others: No Risk: Does risk to harm exist?: yes. Risk: Moderate Risk Duty to warn indicated: No Asssessment/Mental Status Appearance: Other Attitude: Cooperative, Guarded and Friendly Behavior: Repetitive movements Speech: Normal Affect: Cogruent with mood Mood: Sad, Stressed, Depressed and Anxious Thought process: Goal directed and Circumstational Hallucinations: No Delusions: No Attention: Unremarkable Perception: Not impaired Orientation: Fully orientated Memory: Intact Insight: Poor Judgement: Poor Neurovegetative Symptoms Sleep: Decrease Appetitie: Increase Interests: Decrease Energy: Decrease Libido: Not applicable Substance Use: Other (very little) Drug Issues: Other (none) Do you use nicotine?: No Have you used substances in the last 7 days?: No Additional Issues: Assaultive/Threatening Behavior: No Medical Concerns: No Client engaged in active self harm w/weapon: No Threatening to run away: No Child reported abuse/neglect: No Voluntarily presenting for services: Yes Domestic violence is a concern: No Extreme Psychosis or extreme behavior is present: No Impression Patient is awaiting inpatient care due to severity of suicidal ideation Resources [facility] reviewed and given:: 988 and [facility] Plan/Disposition Recommended Disposition: Hospitalization facilities contacted. Plan: Patient will wait voluntarily on zone B for an inpatient bed to become available Facilities contacted if Applicable [facility] Not accepted, No bed available [facility] Not accepted, No bed available, [facility] Not accepted, No bed available Reports/communication Outcome discussed with: ED/Personnel
--- NOTE | 2024-05-13 14:54 | CMSP_ITS ---
Date of service: 05/13/24 Time of Service: 11:00 Care Management Safety Plan Status Status: Voluntary Reason for Wait Reason for Wait: Inpatient Admission Safety Plan Safety Plan: VOLUNTARY FOR INPATIENT PSYCHIATRIC STABILIZATION.? Patient is appropriate in all interactions since arriving at [facility]; Pt has demonstrated appropriate coping and communication skills, has articulated his or her needs and concerns and is fully engaged during staff interactions. Safety plan has been established with patient, and care team, to adhere to patient goals, identify restrictions based on behavioral status, address nutrition, and determine allowed personal belongings, tools for hygiene and personal care. Determine level of activity including ambulation, level of superv ision, visitors, and determine privileges based on behaviors and level of engagement by pt. VOLUNTARY SAFETY PLAN: 1. Will remain on suicide precautions, in paper clothes 2. Will remain in Zone B under direct supervision of one-on-one staff at all times provided by [employer]; BELKIS, OPERATIONS LIAISON laborer pipeline. 3. May have paper cups, plates, finger foods as well as a cardboard spoon with which to eat meals. 4. Follow [facility] Management of the Admitted Behavioral Health Patient policy. 5. Shower available in Zone B without restriction. 6. Personal belongings-soft items permitted at RN discretion. 7. Visitors-none at this time. 8. Activities: soft cart items approved per RN discretion. 9.? Bathroom available in Zone B without restriction. 10. Phone: limited to [facility] cordless phone at RN discretion. Due to VOLUNTARY status, if patient wishes to leave [facility], staff will contact [facility] Crisis Screener ([phone]) and Research Project Manager ([phone]) as soon as possible. In the event of elopement, notify [place] [employer] ([phone]). Patient is currently voluntarily at [facility] and seeking inpatient admission when a bed becomes available. [facility] Frontline Mini Bar Attendant will continue seeking placement. Please contact the Research Project Manager ([phone]) and [facility] Mini Bar Attendant ([phone]) for any needed changes in the Safety Plan. Safety plan has been provided to interdepartmental care team.
--- NOTE | 2024-05-13 14:54 | PDOC.CMSAFE ---
Date of service: 05/13/24 Time of Service: 11:00 Care Management Safety Plan Status Status: Voluntary Reason for Wait Reason for Wait: Inpatient Admission Safety Plan Safety Plan: VOLUNTARY FOR INPATIENT PSYCHIATRIC STABILIZATION.? Patient is appropriate in all interactions since arriving at [facility]; Pt has demonstrated appropriate coping and communication skills, has articulated his or her needs and concerns and is fully engaged during staff interactions. Safety plan has been established with patient, and care team, to adhere to patient goals, identify restrictions based on behavioral status, address nutrition, and determine allowed personal belongings, tools for hygiene and personal care. Determine level of activity including ambulation, level of supervision, visitors, and determine privileges based on behaviors and level of engagement by pt. VOLUNTARY SAFETY PLAN: 1. Will remain on suicide precautions, in paper clothes 2. Will remain in Zone B under direct supervision of one-on-one staff at all times provided by [employer]; BELKIS, INTENSIVE CARE UNIT NURSE stockroom inventory clerk. 3. May have paper cups, plates, finger foods as well as a cardboard spoon with which to eat meals. 4. Follow [facility] Management of the Admitted Behavioral Health Patient policy. 5. Shower available in Zone B without restriction. 6. Personal belongings-soft items permitted at RN discretion. 7. Visitors-none at this time. 8. Activities: soft cart items approved per RN discretion. 9.? Bathroom available in Zone B without restriction. 10. Phone: limited to [facility] cordless phone at RN discretion. Due to VOLUNTARY status, if patient wishes to leave [facility], staff will contact [facility] Crisis Screener ([phone]) and Electric Shovel Operator ([phone]) as soon as possible. In the event of elopement, notify [facility] Police ([phone]). Patient is currently voluntarily at [facility] and seeking inpatient admission when a bed becomes available. [facility] Frontline Train Electronic Technician will continue seeking placement. Please contact the Electric Shovel Operator ([phone]) and [facility] Train Electronic Technician ([phone]) for any needed changes in the Safety Plan. Safety plan has been provided to interdepartmental care team.
--- NOTE | 2024-05-13 14:55 | CMPROGNOTE_ITS ---
Date of service: 05/13/24 Time of Service: 11:00 Care Management Progress Note Progress Note Text Progress Note Text: BEN huddled with [facility] worker and [facility] B RN. Luis has been accepted at [facility], an is awaiting a bed. BEN helped Santino fill out some short-term disability paper work, and faxed his FMLA paperwork to his PCP office after leaving a for the health care coordinator. The disability paperwork was successfully faxed back to Santino's employer. Discharge Potential Discharge Needs: Other (in patient psych hospitalization) Anticipated Barriers to Discharge: Bed availability Patient/Family Education Needs: Review discharge instructions, discuss Ask Me Three Transportation: Other (secured transport) Plan: Anticipate that Santino will transfer to [facility] once a bed is available. He will transfer via secure transport. MH Services (Omit if N/A) Current MH Services: Other (is followed by [facility]) Status Status: Voluntary Reason for Wait: Inpatient Admission Social Determinants of Health Screening Will the Patient Participate in the Screening?: Unable to obtain
--- NOTE | 2024-05-13 15:58 | ED.PROG_ITS ---
Date of service: 05/13/24 Time of Service: 15:58 Medical Decision Making This patient was signed out to me. Please see previous notes for H&P and initial eval. In brief, 59yo M presenting with SI with intent. Medically cleared, pending voluntary placement. Plan for [facility] either today or tomorrow; doc to doc and nurse to nurse have been done. If not going to [facility] this evening, plan for telepsych consult. [facility] tomorrow. Telepsych consult paged out but not yet performed. On my shift no acute events. Will be signed out to oncoming physician, plan remains as above. Quality:[facility] Health Related Social Needs: No Data to Display Discharge Plan Discharge Details Chief Complaint: PsychEval Clinical Impression: Depression with suicidal ideation Primary Care Provider: Rajwinder Garcia ED Provider: Sosa Crawford Home Meds and New Rx's Prescriptions: No Action lisinopril 10 mg tablet 40 mg PO DAILY Patient Comments: 10.14.17 pt states current dose is 40mg qday.HE lisinopril 30 mg tablet 30 mg PO DAILY diazepam [Valium] 2 mg tablet 2 mg PO BID PRN Trulicity 4.5 mg/0.5 mL pen injector 4.5 mg subcut QWEEK Jardiance 25 mg tablet 25 mg PO DAILY insulin degludec [Tresiba FlexTouch U-200] 200 unit/mL (3 mL) insulin pen 160 unit SUBCUT DAILY Patient Comments: INJECT 100 UNITS INTO THE SKIN UNDER THE SKIN ONCE DAILY, TITRATE FOR FASTING SUGARS UNDER 140-MAX OF 160 UNITS Vraylar 3 mg capsule 3 mg PO DAILY Patient Comments: TAKE ONE CAPSULE BY MOUTH EVERY DAY Levemir FlexTouch U100 Insulin 100 unit/mL (3 mL) insulin pen 160 unit SUBCUT DAILY lithium carbonate 300 mg tablet 300 mg PO DAILY lithium carbonate 300 mg capsule 300 mg PO QPM Patient Comments: TAKE ONE CAPSULE BY MOUTH AT BEDTIME WITH 600MG CAPSULE lithium carbonate 600 mg capsule 600 mg PO BID Patient Comments: TAKE ONE CAPSULE BY MOUTH TWICE A DAY
[2024-05-13] MEDS: diazePAM 2 MG TAB PO (19:13)
--- NOTE | 2024-05-13 19:19 | PDOC.MHPN2 ---
Date of service: 05/13/24 Time of Service: 19:20 Mental Health Emergency Note Release [facility] release signed:: Yes Reason for Visit Client is known to [facility], however client has not shown his last couple of appointments. Client arrived at [facility] early yesterday morning with anxiety and making statements of SI. Today he presented resting in his bed but quickly arose when this clinician arrived in his room. He was awake, alert x4, cooperative, very nervous, anxious, and not really wanting to stay in the hospital I feel better. However, due to his SI with a plan, not taking his medication, and being severely depressed going home is not an option at this time as there are no lesser restrictive options available. This assessment was completed face to face at bedside. In the last 2 weeks has the pt presented for ES prior to today?: Unknown Impression The client is a 59-year-old single. male. 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 He has no natural supports for his report. The client uses he him pronouns. All underrepresented identifiers were honored in this assessment. Today the client presented initially today lying in bed and no assessment was required as he has been accepted to [facility]. He struggled with that acceptance (see client related service for more details). This clinician spent 2.5 hours on the phone trying to get a prior authorization and once completed, [facility] stated that they could not take him prior to 9am on 05.14.24. At this time this clinician arrived back to [facility] to complete a full reassessment. The client's presentation through the day was initially stressed, anxious and worried and this afternoon he was calmer and accepting of resources. He remembered this clinician from an assessment completed in the past. The client asked a lot of questions that were causing him anxiety. The client and this clinician discussed his concerns of being afraid he would be stuck down there and so far from home, not being able to have his clothes or cell phone and how long he would be away from home. The client was reassured of timelines, clothes and transportation. He was informed that he could not have his cell phone however, we could arrange for him to have it for a bit today to get numbers off of it. He agreed to move forward with the placement. [place] [facility] [place] 988 and Other Plan/Disposition Recommended Disposition: Hospitalization (Accepted to [facility] ) No. Plan: The client was accepted to [facility] tomorrow. 05.14.2024 after. 9:00 AM. The client was informed of 988 and front porch. as a resource upon discharge. Person reported agreement to plan: Yes Reports/communication Outcome discussed with: ED/Personnel
[2024-05-13] MEDS: Lithium Carbonate 300 MG CAP PO (19:59)
[2024-05-14] MEDS: Insulin Glargine 300 UNITS/3 ML PEN 80 UNITS SC (07:36)
[2024-05-14] MEDS: Lithium Carbonate 300 MG CAP PO (07:44)
[2024-05-14] MEDS: Lisinopril 10 MG TAB 30 MG PO (07:44)
[2024-05-14] MEDS: Empaglifozin 25 MG TAB PO (07:45)
[2024-05-14] MEDS: Lithium Carbonate 300 MG CAP 600 MG PO (08:00)
[2024-05-14 08:03] VITALS: BP 123/77; PULSE 89; RESP 16; TEMP 36.3; O2SAT 98
--- NOTE | 2024-05-14 09:02 | W.EDPROG ---
Date of service: 05/14/24 Time of Service: 09:02 Medical Decision Making Care assumed from off going provider. Patient transferred to [facility] without difficulty. Quality:SDOH Health Related Social Needs: No Data to Display Discharge Plan Disposition Patient Disposition: Psychiatric Hospital/Unit Specific Psychiatric Facility: [facility] Medical-Psychiatric Unit Discharge Details Clinical Impression: Depression with suicidal ideation Primary Care Provider: Rajwinder Garcia ED Provider: Nuvia Salinas Home Meds and New Rx's Prescriptions: No Action lisinopril 10 mg tablet 40 mg PO DAILY Patient Comments: 10.14.17 pt states current dose is 40mg qday.HE lisinopril 30 mg tablet 30 mg PO DAILY diazepam [Valium] 2 mg tablet 2 mg PO BID PRN Trulicity 4.5 mg/0.5 mL pen injector 4.5 mg subcut QWEEK Jardiance 25 mg tablet 25 mg PO DAILY insulin degludec [Tresiba FlexTouch U-200] 200 unit/mL (3 mL) insulin pen 160 unit SUBCUT DAILY Patient Comments: INJECT 100 UNITS INTO THE SKIN UNDER THE SKIN ONCE DAILY, TITRATE FOR FASTING SUGARS UNDER 140-MAX OF 160 UNITS Vraylar 3 mg capsule 3 mg PO DAILY Patient Comments: TAKE ONE CAPSULE BY MOUTH EVERY DAY Levemir FlexTouch U100 Insulin 100 unit/mL (3 mL) insulin pen 160 unit SUBCUT DAILY lithium carbonate 300 mg tablet 300 mg PO DAILY lithium carbonate 300 mg capsule 300 mg PO QPM Patient Comments: TAKE ONE CAPSULE BY MOUTH AT BEDTIME WITH 600MG CAPSULE lithium carbonate 600 mg capsule 600 mg PO BID Patient Comments: TAKE ONE CAPSULE BY MOUTH TWICE A DAY
--- NOTE | 2024-05-14 09:39 | PDOC.CMDIS ---
Date of service: 05/14/24 Care Management Discharge Plan Reason for Hospitalization: depression Discharge Plan: Santino was transferred to [facility] for further treatment of his depression. He was transported via [facility]. [facility] Health Related Social Needs: No Data to Display MH Services (Omit if N/A) Current MH Services: Other (is a client at [facility] in [facility]) Disposition Disposition: [facility] Transport via of: EMS
== END 2024-05-14 08:55 ==
PROVIDERS: Student in an Organized Health Care Education/Training Program; Emergency Provider Emergency Medicine; PCP Family Medicine
DX: R45.851 Suicidal ideations (principal); F41.9 Anxiety disorder, unspecified; F32.A Depression, unspecified; E11.9 Type 2 diabetes mellitus without complications; I10 Essential (primary) hypertension; Z79.4 Long term (current) use of insulin; Z79.85 Long-term (current) use of injectable non-insulin antidiabetic drugs; Z79.84 Long term (current) use of oral hypoglycemic drugs
CPT/HCPCS: 00123; 80053; 80307; 82962; 96127; 99285; 80178; 80320; 80329; 81003; 84443; 85025; J1815

== ENCOUNTER 2024-06-02 20:28 | Emergency (ER) | payer OTHER, SELFPAY ==
[2024-06-02 20:32] VITALS: BP 176/91; PULSE 119; RESP 20; TEMP 36.8; O2SAT 95
--- NOTE | 2024-06-02 21:00 | ED.GENADUL_ITS ---
Discharge Plan Discharge Details Chief Complaint: PsychEval Primary Care Provider: Rajwinder Garcia ED Provider: Nicholas Florez [place] Meds and New Rx's Prescriptions: No Action lisinopril 30 mg tablet 30 mg PO DAILY Trulicity 4.5 mg/0.5 mL pen injector 4.5 mg subcut QWEEK Jardiance 25 mg tablet 25 mg PO DAILY insulin degludec [Tresiba FlexTouch U-200] 200 unit/mL (3 mL) insulin pen 160 unit SUBCUT DAILY Patient Comments: INJECT 100 UNITS INTO THE SKIN UNDER THE SKIN ONCE DAILY, TITRATE FOR FASTING SUGARS UNDER 140-MAX OF 160 UNITS sennosides-docusate sodium [Stool Softener-Stimulant Laxat] 8.6-50 mg tablet 1 tab-cap PO DAILY olanzapine 10 mg tablet 10 mg PO DAILY propranolol 10 mg tablet 10 mg PO BID benztropine 1 mg tablet 1 mg PO DAILY polyethylene glycol 3350 17 gram/dose powder 17 g PO DAILY escitalopram oxalate 10 mg tablet 10 mg PO DAILY HPI General Mode of arrival: ambulatory . Date/Time Provider Initiated Documentation: 06/02/24 20:29 . Limitations to Documentation: no limitations . Information obtained by: patient, RN notes reviewed and old records reviewed . HPI Narrative: 59-year-old male with past medical history of insulin-dependent diabetes hypertension heart murmur, aortic stenosis anxiety palpitations presents to the ER with a chief complaint of suicidal ideation. Patient just left [facility] facility for mental health today due to financial reasons. Patient states his insurance ran out he went home and had thoughts of wanting to stab himself in the chest with scissors. He reports that he decided not to do that and threw the scissors in the trash. He is currently calm and cooperative at this time. Related Data Home Medications ?Medication ?Instructions ?Recorded ?Confirmed empagliflozin 25 mg tablet 25 mg PO DAILY 08/31/23 06/02/24 (Jardiance) insulin degludec 200 unit/mL (3 160 unit subcut DAILY 08/31/23 06/02/24 mL) subcutaneous pen (Tresiba FlexTouch U-200 insulin) dulaglutide 4.5 mg/0.5 mL 4.5 mg subcut QWEEK 09/16/23 06/02/24 subcutaneous pen injector (Trulicity) lisinopril 30 mg tablet 30 mg PO DAILY 09/16/23 06/02/24 benztropine 1 mg tablet 1 mg PO DAILY 06/02/24 06/02/24 escitalopram oxalate 10 mg tablet 10 mg PO DAILY 06/02/24 06/02/24 olanzapine 10 mg tablet 10 mg PO DAILY 06/02/24 06/02/24 polyethylene glycol 3350 17 17 g PO DAILY 06/02/24 06/02/24 gram/dose oral powder propranolol 10 mg tablet 10 mg PO BID 06/02/24 06/02/24 sennosides 8.6 mg-docusate sodium 1 tab-cap PO DAILY 06/02/24 06/02/24 50 mg tablet (Stool Softener-Stimulant Laxative) Allergies Allergy/AdvReac Type Severity Reaction Status Date / Time No Known Allergies Allergy Verified 06/02/24 20:39 General Stated Complaint: PsychEval AMRKO: 2 Review of Systems All systems reviewed & are unremarkable except as noted in HPI and below Cardiovascular Cardiovascular: Denies chest pain and Denies dyspnea Respiratory Respiratory: Denies dyspnea Gastrointestinal Gastrointestinal: Denies diarrhea, Denies nausea and Denies vomiting Psychiatric Psychiatric: Reports as per HPI and Reports suicidal ideation Exam Narrative Exam Narrative: Constitutional: Alert and oriented x3. Appears stated age. Normal body habitus. Head: Normocephalic, no trauma. Eyes: Pupils PERRL, Red reflex noted, EOM's intact. Eyelids symmetrical without lesions, discharge, or swelling. ENT: Bilateral TM's WNL, External ear normal to inspection, no mastoid TTP, swelling, or erythema, Nasal turbinates WNL, no nasal discharge. Normal dentition, Posterior pharynx WNL, no exudate. Chest: RRR, Normal S1, S2, distal pulses intact. Resp: Lungs clear to auscultation bilaterally, no wheezes, rales, or rhonchi. Abdomen: Soft, non-distended, Normoactive bowel sounds all 4 quads. Musculoskeletal: Normal gait, Moves all 4 extremities without difficulty. Skin: No suspicious rashes or lesions. Capillary refill less than 2 sec. Neurologic: Cranial nerves II-XII intact. Alert and oriented x 3. Motor: No deficits noted. Sensory: Intact bilaterally all 4 extremities. Hematologic/Lymphatic: No ecchymosis, no lymphadenopathy. Psychiatric: See below Psych Speech and Movement: speech clear Mood: euthymic mood Affect: labile affect and blunted Attitude: cooperative Thought Process: normal Thought Content: suicidality Insight: fair Judgment: fair Course Vital Signs Vital signs: Vital Signs Temperature 36.8 C 06/02/24 20:32 Pulse 119 H 06/02/24 20:32 Respiratory Rate 20 06/02/24 20:32 Blood Pressure 176/91 H 06/02/24 20:32 Pulse Oximetry 95 06/02/24 20:32 Temperature 36.8 C 06/02/24 20:32 Pulse 119 H 06/02/24 20:32 Respiratory Rate 20 06/02/24 20:32 Blood Pressure 176/91 H 06/02/24 20:32 Blood Pressure Position Sitting 06/02/24 20:32 Pulse Oximetry 95 06/02/24 20:32 Oxygen Delivery Method Room Air 06/02/24 20:32 Oxygen Flow Rate 0 06/02/24 20:32 Medical Decision Making 59-year-old male with past medical history of insulin-dependent diabetes hypertension heart murmur, aortic stenosis anxiety palpitations presents to the ER with a chief complaint of suicidal ideation. Patient just left right [facility] facility for mental health today due to financial reasons. Patient states his insurance ran out he went home and had thoughts of wanting to stab himself in the chest with scissors. He reports that he decided not to do that and threw the scissors in the trash. He is currently calm and cooperative at this time. Patient and nurse also reported that they took him off his lithium and they have been changing his medications recently. Workup ordered including CBC CMP salicylate, acetaminophen, TSH, UDS and ethyl alcohol level. Patient denies any drugs or alcohol. Does not seem to be under the influence at this time. Also lithium level was ordered. Mental health eval ordered. Patient was evaluated here in the department and they will seek voluntary inpatient mental health placement. Patient's daily medications ordered, diabetic diet safe tray also ordered and fingerstick blood glucose ordered before meals and at bedtime. Labs show a slightly elevated white blood cell count of 16.68, platelets 116 anion gap 12.7 BUN 19 creatinine 1.5, glucose 297 TSH within normal limits negative Tylenol salicylate level negative UDS. [place] is less than 0.2 and alcohol level less than 3.0. Care is to be handed off to oncoming provider Dr. Nicholas Gautam pending inpatient psychiatric placement. This text was generated using [employer] system, please disregard any oddities of phrase or misspellings. Medical Records Medical records reviewed: Yes I reviewed the patient's medical records. Lab Data Lab results reviewed: Yes I reviewed the patient's lab results. Labs: Laboratory Tests Range/Units 06/02/24 06/02/24 21:01 21:25 WBC (4.4-10.8) 10^3/uL 16.68 H RBC (4.36-5.78) 10^6/uL 5.51 Hgb (13.5-17.5) g/dL 16.0 Hct (40.0-50.0) % 46.8 MCV (80-95) fL 85 MCH (27.0-33.0) pg 29.0 MCHC (32.0-36.0) % 34.2 RDW (11.8-14.1) % 13.5 Plt Count (130-400) 10^3/uL 116 L MPV (8.0-11.0) fL 11.4 H Sodium (136-145) mmol/L 139 Potassium (3.5-5.1) mmol/L 3.8 Chloride (98-107) mmol/L 103 Carbon Dioxide (21.0-32.0) mmol/L 23.3 Anion Gap (3-11) mmol/L 12.7 H BUN (7-18) mg/dL 19 H Creatinine (0.70-1.30) mg/dL 1.5 H Est GFR (CKD-EPI 2020) (mL/min/1.73m2) 52.97 Glucose (74-106) mg/dL 297 H Calcium (8.5-10.1) mg/dL 9.1 Total Bilirubin (0.2-1.0) mg/dL 0.4 AST (15-37) U/L 35 ALT (16-63) U/L 55 Alkaline Phosphatase (46-116) U/L 106 Total Protein (6.4-8.2) g/dL 7.4 Albumin (3.4-5.0) g/dL 4.2 TSH (0.36-3.74) uIU/mL 3.56 Salicylates (<2.8) mg/dL < 2.8 Urine Opiates Screen (Negative) Negative Urine Methadone Screen (Negative) Negative Acetaminophen (10-30) ug/mL < 2 Ur Barbiturates Screen (Negative) Negative Ur Tricyclics Screen (Negative) Negative Ur Amphetamines Screen (Negative) Negative U Benzodiazepines Scrn (Negative) Negative [place] (0.6-1.2) mmol/L < 0.2 L Urine Cocaine Screen (Negative) Negative Ur THC Screen (Negative) Negative Ethyl Alcohol (<10) mg/dL < 3.0 Quality:SDOH Health Related Social Needs: No Data to Display PFSH All Active Problems (Updated 05/12/24 @ 07:22 by Virgilio Hennessy DO) Depression with suicidal ideation (Acute) Santana sign present (Acute) Cervical spine arthritis (Acute) Paresthesia of hand, bilateral (Acute) Bilateral hand numbness (Acute) Carpal tunnel syndrome, bilateral (Acute) Superior labrum [id number] (SLAP) tear of left shoulder (Acute ~04/2022) Left shoulder pain (Acute) Medical History Mastoiditis External otitis of right ear Diabetes mellitus Obesity Quadriceps tendon rupture Constipation HTN (hypertension) Hx of adenomatous colonic polyps Rectal bleeding Prediabetes Jaw pain Heart murmur, systolic Aortic stenosis Anxiety Palpitations Tinea pedis Foot pain Surgical History Tonsillectomy Social History Smoking/Tobacco Use Status: Never Smoking risk assessment performed?: Yes Alcohol Intake: current Alcohol Intake frequency: a few times a week Alcohol type: beer and hard liquor Drug use: Never Substance use type: does not use Housing: apartment Current gender identity: male Do you feel safe at home: Yes Do you feel safe in your relationship?: Yes Additional Social history: Lives alone 05/12/24
[2024-06-02 21:09] LABS: HCT 46.8 % (40.0-50.0); MCHC 34.2 % (32.0-36.0); MCV 85 fL (80-95); MPV 11.4 fL (8.0-11.0); Platelet Count 116 10^3/uL (130-400); RBC 5.51 10^6/uL (4.36-5.78); RDW 13.5 % (11.8-14.1); RDW-SD 41.7 fL; WBC 16.68 10^3/uL (4.4-10.8)
[2024-06-02 21:39] LABS: Albumin 4.2 g/dL (3.4-5.0); Alkaline Phosphatase 106 U/L (46-116); Anion Gap 12.7 mmol/L (3-11); BUN 19 mg/dL (7-18); Bilirubin, Total 0.4 mg/dL (0.2-1.0); CO2 23.3 mmol/L (21.0-32.0); CREATININE 1.5 mg/dL (0.70-1.30); Calcium 9.1 mg/dL (8.5-10.1); Chloride 103 mmol/L (98-107); Estimated GFR 52.97 (mL/min/1.73m2); Glucose 297 mg/dL (74-106); Potassium 3.8 mmol/L (3.5-5.1); Sodium 139 mmol/L (136-145); TSH (W/Ref FT4) 3.56 uIU/mL (0.36-3.74); Total Protein 7.4 g/dL (6.4-8.2)
[2024-06-02 21:40] LABS: ETHANOL BLOOD < 3.0 mg/dL (<10)
[2024-06-02 21:41] LABS: Salicylate < 2.8 mg/dL (<2.8)
[2024-06-02 21:42] LABS: Acetaminophen < 2 ug/mL (10-30)
[2024-06-02 21:49] LABS: ALT 55 U/L (16-63); AST 35 U/L (15-37)
[2024-06-02 21:51] LABS: Lithium < 0.2 mmol/L (0.6-1.2)
[2024-06-02 22:00] LABS: *AMPHETAMINES SCREEN URINE Negative (Negative); *BARBITURATES SCREEN URINE Negative (Negative); *BENZODIAZEPINES SCREEN URINE Negative (Negative); Cannabinoids THC Negative (Negative); Cocaine Screen,Urine Negative (Negative); METHADONE URINE SCREEN Negative (Negative); OPIATES URINE SCREEN Negative (Negative)
[2024-06-02 22:01] LABS: Tricyclic Antidepressants Negative (Negative)
--- NOTE | 2024-06-02 23:02 | PDOC.MHCN_ITS ---
Date of service: 06/02/24 Time of Service: 23:03 PHQ-9 Over the last 2 weeks, how often have you been bothered by any of the following problems? 1. Little interest or pleasure in doing things: nearly every day 2. Feeling down, depressed, or hopeless: more than half the days 3. Trouble falling or staying asleep, or sleeping too much: more than half the days 4. Feeling tired or having little energy: not at all 5. Poor appetite or overeating: not at all 6. Feeling bad about yourself - or that you are a failure or have let yourself and your family down: more than half the days 7. Trouble concentrating on things, such as reading the newspaper or watching television: not at all 8. Moving or speaking so slowly that other people could have noticed? - Or the opposite - being so fidgety or restless that you have been moving around a lot more than usual: not at all 9. Thoughts that you would be better off or of hurting yourself in some way: more than half the days Total score: 11 If you checked off any problems, how difficult have these problems made it for you to do your work, take care of things at home, or get along with other people?: somewhat difficult Source: Developed by Drs. Nicholas Boo, Pauly Urias, Isaias Pena and colleagues, with an educational demario from [employer]. Suicide Severity Rate CSSRS Have you wished you were or wished you could go to sleep and not wake up?: Yes Have you actually had any thoughts of killing yourself?: Yes CSSRS2 Have you been thinking about how you might do this?: Yes Have you had these thoughts and had some intention of acting on them?: No Have you started to work out or worked out the details of how to kill yourself? Do you intend to carry out this plan?: Yes CSSRS3 Have you ever done anything, started to do anything or prepared to do anything to end your life?: No CSSRS4 Was this within the past three months?: No Screening Score Total Score: 4 Screening: Positive Mental Health Emergency Note Release [facility] release signed:: Yes Reason for Visit Depression and suicidal ideation In the last 2 weeks has the pt presented for ES prior to today?: No Client Information Client is: Adult Outpatient Well Housed: Yes Non Suicidal Self Injury Current: No History: No Safety Risk/Harm to Self or Others Current Ideation to Harm Self or Others: Yes to self. Intent: no, has no intent. Plan: yes,has a plan. History of suicide attempt: No history of suicide attempt reported Risk: Does risk to harm exist?: yes. Access to means: Yes. Types of Means: Other weapons and Medication. Details: Client has access to SHARPS, medications and ropes. . Counseling provided: No Risk: Moderate Risk Duty to warn indicated: No Asssessment/Mental Status Appearance: Disheveled Attitude: Cooperative and Friendly Behavior: Poor impulse control Speech: Normal Affect: Cogruent with mood Mood: Depressed Thought process: Goal directed Hallucinations: yes, Auditory (The client reports hearing voices) Delusions: No Attention: Unremarkable Perception: Not impaired Orientation: Fully orientated Memory: Intact Insight: Fair Judgement: Fair Neurovegetative Symptoms Sleep: No change Appetitie: No change Interests: Decrease Energy: No change Libido: Not applicable Substance Use: Other (No) Drug Issues: Other (No) Do you use nicotine?: No Have you used substances in the last 7 days?: No Additional Issues: Assaultive/Threatening Behavior: No Medical Concerns: No Client engaged in active self harm w/weapon: No Threatening to run away: No Child reported abuse/neglect: No Voluntarily presenting for services: Yes Domestic violence is a concern: No Extreme Psychosis or extreme behavior is present: No Impression The client is a 59 year old biological male who resides independently in [place], [place]. The client presents to [facility] ED alone and is seen in blue paper scrubs in their hospital bed. Affect is appears to be congruent with mood. Speech is in normal range. Client is friendly and cooperative; they report their mood as depressed. Thought process appears to be goal directed as he feels the need for treatment around his anxiety and depression. The client self reports to have auditory hallucinations with hearing voices in his head that he talks to. The client denies visual hallucinations. There are no delusions observed by this clinician. Cognitive assessment reveals orientation to person, place and time. The client reports decrease in appetite and sleep. The client reports to have been discharged today from voluntary impatient treatment at [facility] after being there for treatment the last 21 days. The client states he feels he was making progress and was discharged due to his insurance cancelling, and the psychosocial rehabilitation counselor and hudson barraza feeling a discharge was appropriate at this time. The client reports he was feeling well at home for awhile, but then started feeling depressed and some anxiety. The client states he started having suicidal thoughts and was holding a pair of scissors to his heart. When asked on a scale from zero to ten, zero being I won't do anything to end my life and ten being I will find anyway to end my life by suicide, where would you rate yourself? The client reported to be at a three out of ten. The client states he feels better talking to this clinician but when alone his suicidal thoughts get worse. The client denied HI and NSSI to this clinician. The client scored 11/27 on the PHQ-9 and 4/6 on the CSSRS. The client reports his needs as going back to voluntary impatient treatment as his n eeds to get help with his depression and anxiety, as well as a medication change. The client reports that he feels his current medication is not working for him and expressed that at [facility] before discharge. Plan/Disposition Recommended Disposition: Hospitalization facilities contacted. Plan: The client will remain in [facility] until placement has been secured. The client will receive daily assessments by [facility] until the client is placed. Reports/communication Outcome discussed with: ED/Personnel
[2024-06-03 00:58] LABS: Bilirubin Negative (Negative); Blood Negative (Negative); Clarity Clear (Clear); Glucose 500 mg/dL (Negative); Ketones Negative (Negative); Leukocyte Esterase Negative (Negative); Nitrite Negative (Negative); Urobilinogen 0.2 mg/dL (Up to 0.2); pH 5.5 (5-8)
--- NOTE | 2024-06-03 06:26 | W.EDPROG ---
Date of service: 06/03/24 Time of Service: 06:26 Medical Decision Making Patient presented to the ED last evening. Had just been discharged from [facility] after psychiatric admission there. Has been feeling suicidal since returning home. Medically cleared after arrival. No issues overnight. Discharge Plan Discharge Details Chief Complaint: PsychEval Clinical Impression: Suicidal ideation Primary Care Provider: Rajwinder Garcia ED Provider: Nicholas Florez [place] Meds and New Rx's Prescriptions: No Action lisinopril 30 mg tablet 30 mg PO DAILY Trulicity 4.5 mg/0.5 mL pen injector 4.5 mg subcut QWEEK Jardiance 25 mg tablet 25 mg PO DAILY insulin degludec [Tresiba FlexTouch U-200] 200 unit/mL (3 mL) insulin pen 160 unit SUBCUT DAILY Patient Comments: INJECT 100 UNITS INTO THE SKIN UNDER THE SKIN ONCE DAILY, TITRATE FOR FASTING SUGARS UNDER 140-MAX OF 160 UNITS sennosides-docusate sodium [Stool Softener-Stimulant Laxat] 8.6-50 mg tablet 1 tab-cap PO DAILY olanzapine 10 mg tablet 10 mg PO DAILY propranolol 10 mg tablet 10 mg PO BID benztropine 1 mg tablet 1 mg PO DAILY polyethylene glycol 3350 17 gram/dose powder 17 g PO DAILY escitalopram oxalate 10 mg tablet 10 mg PO DAILY
[2024-06-03 07:14] VITALS: BP 148/92; PULSE 102; RESP 21; TEMP 36.7; O2SAT 96
[2024-06-03] MEDS: Sennosides/Docusate Sodium TAB 1 TAB PO (09:00)
[2024-06-03] MEDS: Empaglifozin 25 MG TAB PO (09:00)
[2024-06-03] MEDS: Propranolol 10 MG TAB PO (09:00)
[2024-06-03] MEDS: Insulin Glargine 300 UNITS/3 ML PEN 64 UNITS SC (09:01)
[2024-06-03] MEDS: Escitalopram 10 MG TAB PO (09:01)
[2024-06-03] MEDS: Benztropine 1 MG TAB PO (09:01)
[2024-06-03] MEDS: Lisinopril 10 MG TAB 30 MG PO (09:01)
[2024-06-03] MEDS: OLANZapine 10 MG TAB PO (09:01)
--- NOTE | 2024-06-03 11:59 | W.EDPROG ---
Date of service: 06/03/24 Time of Service: 11:59 Medical Decision Making Care was signed out by Dr. Florez, please see his documentation regarding prior ED course. Patient was noted be medically screened and cleared prior to signout. Plan at signout was to await psychiatric treatment facility placement. I received call from nurse practitioner Antonina at [facility]. Discussed ED course including diagnostics. She will except the patient in transfer. Quality:SDWY Health Related Social Needs: No Data to Display Discharge Plan Disposition Patient Disposition: Psychiatric Hospital/Unit Specific Psychiatric Facility: [facility] Condition: Serious Discharge Details Chief Complaint: PsychEval Clinical Impression: Suicidal ideation Primary Care Provider: Rajwinder Garcia ED Provider: Tushar De Souza Home Meds and New Rx's Prescriptions: No Action lisinopril 30 mg tablet 30 mg PO DAILY Trulicity 4.5 mg/0.5 mL pen injector 4.5 mg subcut QWEEK Jardiance 25 mg tablet 25 mg PO DAILY insulin degludec [Tresiba FlexTouch U-200] 200 unit/mL (3 mL) insulin pen 160 unit SUBCUT DAILY Patient Comments: INJECT 100 UNITS INTO THE SKIN UNDER THE SKIN ONCE DAILY, TITRATE FOR FASTING SUGARS UNDER 140-MAX OF 160 UNITS sennosides-docusate sodium [Stool Softener-Stimulant Laxat] 8.6-50 mg tablet 1 tab-cap PO DAILY olanzapine 10 mg tablet 10 mg PO DAILY propranolol 10 mg tablet 10 mg PO BID benztropine 1 mg tablet 1 mg PO DAILY polyethylene glycol 3350 17 gram/dose powder 17 g PO DAILY escitalopram oxalate 10 mg tablet 10 mg PO DAILY
--- NOTE | 2024-06-03 13:00 | CMPROGNOTE_ITS ---
Date of service: 06/03/24 Time of Service: 13:01 Care Management Progress Note Progress Note Text Progress Note Text: CM met with [facility] and ED staff to discuss Santino's plan of care. Per RN, Santino presents with a flat affect and depressed mood. Per report, Santino was discharged from [facility] yesterday, and presented to [facility] shortly after returning home. Per [facility], [facility] has accepted Santino for inpatient psychiatric treatment today; [facility]. He is agreeable to this plan. CM will continue to follow. Social Determinants of Health Screening Will the Patient Participate in the Screening?: Declined to provide
== END 2024-06-03 15:13 ==
PROVIDERS: Registered Nurse Emergency; Emergency Provider Student in an Organized Health Care Education/Training Program; PCP Family Medicine
DX: R45.851 Suicidal ideations (principal); F32.A Depression, unspecified; F41.9 Anxiety disorder, unspecified; Z79.85 Long-term (current) use of injectable non-insulin antidiabetic drugs; Z79.84 Long term (current) use of oral hypoglycemic drugs
CPT/HCPCS: 00123; 80053; 80307; 82962; 85027; 96127; 96372; 99285; 80178; 80320; 80329; 81003; 84443; J1815

== ENCOUNTER 2024-06-24 16:18 | Outpatient (REF) | payer OTHER, SELFPAY ==
[2024-06-24 21:49] LABS: Microalb ug/mg Crea 4.6 ug/mg Cr
== END 2024-06-24 16:19 | disposition home or self-care (01) ==
LOC: NCHCN 16:18
PROVIDERS: PCP Family Medicine; Visit Provider Family Medicine
DX: E11.9 Type 2 diabetes mellitus without complications (principal); Z79.4 Long term (current) use of insulin
CPT/HCPCS: 82043; 82570

== ENCOUNTER 2024-07-12 13:18 | Emergency (ER) | payer OTHER, MEDICAID, SELFPAY ==
[2024-07-12 13:20] VITALS: BP 160/100; PULSE 93; RESP 20; TEMP 36.7; O2SAT 98
--- NOTE | 2024-07-12 13:45 | RT.EKG_ITS ---
APPROVED REPORT Exam: Resting ECG Reason for Exam: OD Patient Location: E HR:82 bpm ECG Measurements Heart Rate 82 AXIS NJ 162 P 55 QRSd 106 QRS 49 QT 391 T 39 QTc 458 Conclusion Sinus rhythm...normal P axis, V-rate 60- 99 No Occlusion KS
--- NOTE | 2024-07-12 13:58 | ED.GENADUL_ITS ---
Discharge Plan Discharge Details Chief Complaint: OD/Poison Primary Care Provider: Rajwinder Garcia ED Provider: Mary Quinones Home Meds and New Rx's Prescriptions: No Action lisinopril 30 mg tablet 30 mg PO DAILY Trulicity 4.5 mg/0.5 mL pen injector 4.5 mg subcut QWEEK Jardiance 25 mg tablet 25 mg PO DAILY insulin degludec [Tresiba FlexTouch U-200] 200 unit/mL (3 mL) insulin pen 160 unit SUBCUT DAILY Patient Comments: INJECT 100 UNITS INTO THE SKIN UNDER THE SKIN ONCE DAILY, TITRATE FOR FASTING SUGARS UNDER 140-MAX OF 160 UNITS sennosides-docusate sodium [Stool Softener-Stimulant Laxat] 8.6-50 mg tablet 1 tab-cap PO DAILY olanzapine 10 mg tablet 10 mg PO DAILY propranolol 10 mg tablet 10 mg PO BID benztropine 1 mg tablet 1 mg PO DAILY polyethylene glycol 3350 17 gram/dose powder 17 g PO DAILY escitalopram oxalate 10 mg tablet 10 mg PO DAILY HPI General Date/Time Provider Initiated Documentation: 07/12/24 13:24 . Limitations to Documentation: no limitations . Information obtained by: patient and RN notes reviewed . History of Present Illness 59 year old M presents to the emergency department with the chief complaint of SI, attemptt with antifreeze ingestion a few days ago, now anxious, Patient started experiencing this day(s) and it has been now resolved (still anxious but no longer having SI). No relieving factors improve symptom(s), Other factors that worsen symptoms (social stressors, worry) . Patient notes loss of appetite, malaise and nausea/vomiting (nausea, no vomiting); denies chest pain, diaphoresis, shortness of breath, syncope and weakness. Patient did receive the following treatments prior to arrival, none Related Data Home Medications ?Medication ?Instructions ?Recorded ?Confirmed empagliflozin 25 mg tablet 25 mg PO DAILY 08/31/23 06/02/24 (Jardiance) insulin degludec 200 unit/mL (3 160 unit subcut DAILY 08/31/23 06/02/24 mL) subcutaneous pen (Tresiba FlexTouch U-200 insulin) dulaglutide 4.5 mg/0.5 mL 4.5 mg subcut QWEEK 09/16/23 06/02/24 subcutaneous pen injector (Trulicity) lisinopril 30 mg tablet 30 mg PO DAILY 09/16/23 06/02/24 benztropine 1 mg tablet 1 mg PO DAILY 06/02/24 06/02/24 escitalopram oxalate 10 mg tablet 10 mg PO DAILY 06/02/24 06/02/24 olanzapine 10 mg tablet 10 mg PO DAILY 06/02/24 06/02/24 polyethylene glycol 3350 17 17 g PO DAILY 06/02/24 06/02/24 gram/dose oral powder propranolol 10 mg tablet 10 mg PO BID 06/02/24 06/02/24 sennosides 8.6 mg-docusate sodium 1 tab-cap PO DAILY 06/02/24 06/02/24 50 mg tablet (Stool Softener-Stimulant Laxative) Allergies Allergy/AdvReac Type Severity Reaction Status Date / Time No Known Allergies Allergy Verified 07/12/24 13:24 General Stated Complaint: OD/Poison MARKO: 2 Review of Systems Constitutional Constitutional: Reports as per HPI, Denies fever(s), Denies headache(s) and Denies weakness Eyes Eyes: Denies change in vision ENT Ears, Nose, Mouth, and Throat: Denies headache(s) Cardiovascular Cardiovascular: Reports as per HPI, Denies chest pain, Denies lightheadedness, Denies dyspnea and Denies dyspnea on exertion Respiratory Respiratory: Reports as per HPI, Denies cough, Denies dyspnea and Denies dyspnea on exertion Gastrointestinal Gastrointestinal: Reports as per HPI, Denies abdominal pain, Denies change in bowel habits and Denies vomiting Genitourinary Genitourinary: Denies system reviewed and no additional complaints, except as documented (denies any change in urinary habits) Integumentary/Breasts Skin/Breast: Reports as per HPI and Denies rash Neurologic Neurologic: Denies abnormal movements, Denies abnormal speech, Denies headache(s) and Denies weakness Exam Const General: cooperative, healthy appearing, comfortable, no acute distress, well developed, well groomed and anxious Nutritional Appearance: average body habitus and well nourished Orientation: alert and awake Eyes General: appearance normal, both eyes and all related structures Resp Effort & Inspection: normal respiratory effort, able to speak in complete sente nces and no respiratory distress Auscultation: clear to auscultation bilaterally, no rales, no rhonchi and no wheezes Cardio Rate: regular rate Rhythm: regular rhythm Skin General skin exam: no rashes or lesions noted Trauma: no lacerations or abrasions Neuro General: patient alert and patient awake Cognition: normal cognition Speech: speech normal Gait: normal gait Psych Appearance: grossly normal and well kempt Mental Status: mental status grossly normal Speech and Movement: restless Mood: anxious mood Affect: anxious affect Attitude: cooperative Thought Process: normal Thought Content: normal (no longer having SI) Insight: limited Judgment: limited Course Vital Signs Vital signs: Vital Signs Temperature 36.7 C 07/12/24 13:20 Pulse 93 H 07/12/24 13:20 Respiratory Rate 20 07/12/24 13:20 Blood Pressure 160/100 H 07/12/24 13:20 Pulse Oximetry 98 07/12/24 13:20 Temperature 36.7 C 07/12/24 13:20 Pulse 93 H 07/12/24 13:20 Respiratory Rate 20 07/12/24 13:20 Blood Pressure 160/100 H 07/12/24 13:20 Pulse Oximetry 98 07/12/24 13:20 Medical Decision Making Patient is a pleasant 59 year old male with PMH significant for HTN, DM, aortic stenosis, anxiety, presenting today with c/c of worsening anxiety, SI, medication non-compliance, SI attempt with drinking antifreeze. He reports that he took a big swig on Thursday afternoon when he was feeling suicidal. He reports that his suicidal ideations is primarily around concerned and worried that he will not get back to him or take him seriously. He has been hospitalized numerous times for his mental health. He reports that he has been most recently at both [facility] and [facility]. He reports that his suicidal ideations have greatly decreased yesterday and today although he reports that his anxiety is greatly increased. He reports that because of his deathly glycol ingestion, he was has not to take any of his baseline medications as he was concerned that this may mix and potentially cause further issues. He does not feel like he is having any withdrawals but he is endorsing some nausea, dry heaves, tremulousness but also states that these are often symptoms associated with his anxiety. He also reports he is been having some palpitations. Denies any chest pain. No recent illness. He denies a current plan on further harm for himself. Patient feels that he would be most safe and be able to complete his mental health care better if he is able to be discharged home once we have completed a medical workup on him and ensured that he is stable he also agrees to be getting his medications at once again if the threat associated with him having ingested any antifreeze is gone. Contacted poison control. Obtaining baseline labs including a VBG. Unlikely to have any acute emergent tox issue given the time since ingestion. However, I will call back once I have the labs. On exam, patient appears nontoxic. He does appear profoundly anxious and slightly tremulous but when speaking more with him he does seem to calm down and his tremulousness can subside. He does have an systolic murmur heard at the aortic area consistent with his history. Lungs are clear, no wheezing. He denied any coughing after ingestion of the antifreeze, no SOB or wheezing. Sitter with patient, he will be moving to zone B. Will give Ativan for anxiety. Spoke with MH who will evaluate patient. As this has been ongoing issue with the patient and he is now able to communicate where he would feel safest, he may be eligible to be d/c'ed to home with safety plan and very close f/u. However, we did discuss that he may require hospitalization. At the end of my shift, care transitioned to oncoming provider. labs thus far are reassuring aside from K which was replenished orally. VBG and CBC had to be redrawn. Poison center would like call once this is returned. MH to see patient and plan to be discussed. Will need to restart medications. Quality:SDOH Health Related Social Needs: No Data to Display PFSH All Active Problems (Updated 07/04/24 @ 00:03 by SONIA MILLIGAN) Santana sign present (Acute) Cervical spine arthritis (Acute) Paresthesia of hand, bilateral (Acute) Bilateral hand numbness (Acute) Carpal tunnel syndrome, bilateral (Acute) Superior labrum [id number] (SLAP) tear of left shoulder (Acute ~04/2022) Left shoulder pain (Acute) Medical History Mastoiditis External otitis of right ear Diabetes mellitus Obesity Quadriceps tendon rupture Constipation HTN (hypertension) Hx of adenomatous colonic polyps Rectal bleeding Prediabetes Jaw pain Heart murmur, systolic Aortic stenosis Anxiety Palpitations Tinea pedis Foot pain Surgical History Tonsillectomy Social History Smoking/Tobacco Use Status: Never Smoking risk assessment performed?: Yes Alcohol Intake: current Alcohol Intake frequency: a few times a week Alcohol type: beer and hard liquor Drug use: Never Substance use type: does not use Housing: apartment Current gender identity: male Do you feel safe at home: Yes Do you feel safe in your relationship?: Yes Additional Social history: Lives alone 05/12/24
[2024-07-12 14:17] LABS: Abs Immature Grans 0.11 10^3/uL (0.0-0.06); Absolute Basophil Count 0.06 10^3/uL (0.0-0.2); Absolute Eosinophil Count 0.15 10^3/uL (0.0-0.7); Absolute Monocyte Count 1.11 10^3/uL (0.1-0.8); Basophils % 0.3 %; Eosinophils % 0.7 %; HCT 49.8 % (40.0-50.0); HGB 17.4 g/dL (13.5-17.5); Immature Grans % 0.5 %; Lymphocytes % 12.6 %; MCH 28.6 pg (27.0-33.0); MCHC 34.9 % (32.0-36.0); MCV 82 fL (80-95); MPV 11.3 fL (8.0-11.0); Monocytes % 5.3 %; Neutrophils % 80.6 %; Platelet Count 149 10^3/uL (130-400); RBC 6.08 10^6/uL (4.36-5.78); RDW 13.8 % (11.8-14.1); WBC 20.98 10^3/uL (4.4-10.8)
[2024-07-12 14:20] LABS: Absolute Lymphocyte Count 2.64 10^3/uL (1.2-3.4); Absolute Neutrophil Count 16.91 10^3/uL (1.2-6.7)
[2024-07-12 14:34] LABS: ALT 26 U/L (16-63); AST 15 U/L (15-37); Albumin 4.8 g/dL (3.4-5.0); Alkaline Phosphatase 97 U/L (46-116); Anion Gap 13.4 mmol/L (3-11); BUN 13 mg/dL (7-18); Bilirubin, Total 1.1 mg/dL (0.2-1.0); CO2 22.6 mmol/L (21.0-32.0); CREATININE 1.4 mg/dL (0.70-1.30); Chloride 105 mmol/L (98-107); Estimated GFR 57.54 (mL/min/1.73m2); Glucose 72 mg/dL (74-106); Potassium 3.1 mmol/L (3.5-5.1); Sodium 141 mmol/L (136-145); Total Protein 8.6 g/dL (6.4-8.2)
[2024-07-12 14:36] LABS: Bilirubin Negative (Negative); Blood Negative (Negative); Clarity Clear (Clear); Glucose >=1000 mg/dL (Negative); Ketones 15 mg/dL (Negative); Leukocyte Esterase Negative (Negative); Nitrite Negative (Negative); Urobilinogen 0.2 mg/dL (Up to 0.2); pH 5.5 (5-8)
[2024-07-12 14:43] LABS: ETHANOL BLOOD < 3.0 mg/dL (<10)
[2024-07-12 14:51] LABS: RBC Negative HPF (0-2); WBC 0-2 HPF (0-5)
[2024-07-12 14:52] VITALS: RESP 16
[2024-07-12 14:52] LABS: Bacteria Negative HPF (Negative); C & S Indicated? No; Casts 0-2 Hyaline LPF (Negative); Crystals Negative HPF (Negative); Epithelial Cells Few HPF (Negative); Mucus Heavy (Negative); Other Cells Rare Renal (Negative)
[2024-07-12 14:55] LABS: Acetaminophen < 2 ug/mL (10-30); Salicylate < 2.8 mg/dL (<2.8)
[2024-07-12 14:55] LABS: *AMPHETAMINES SCREEN URINE Negative (Negative); *BARBITURATES SCREEN URINE Negative (Negative); *BENZODIAZEPINES SCREEN URINE Negative (Negative); Cannabinoids THC Negative (Negative); Cocaine Screen,Urine Negative (Negative); METHADONE URINE SCREEN Negative (Negative); OPIATES URINE SCREEN Negative (Negative)
[2024-07-12 14:58] LABS: Troponin I 8 ng/L (<or=76)
[2024-07-12 14:59] LABS: Tricyclic Antidepressants Negative (Negative)
[2024-07-12] MEDS: LORazepam 1 MG TAB PO (15:39)
[2024-07-12 15:41] LABS: BE (Venous) -2 mmol/L (-2-3); HCO3 (Venous) 22 mmol/L (23-28); O2 Sat (Venous) 50 %; TCO2 (Venous) 19 mmol/L (24-29); pCO2 (Venous) 28 mmHg (41-51); pH (Venous) 7.49 (7.31-7.41); pO2 (Venous) 26 mmHg
--- NOTE | 2024-07-12 16:16 | ED.FU.B_ITS ---
Follow Up Plan: Handoff report received from Mary STEWART, sheeba ANABEL. See her note for full HPI/ROS, physical exam, and interpretation of labs. Luis did have a repeat VBG and CBC performed; VBG reassuring, shows mild respiratory alkalosis. Discussed case with Poison Control Center, reviewed labs. Concern with ethylene glycol consumption is for anion gap acidosis or ARI; labs are all reassuring. Discussed case with [facility]'s counselor who is very familiar with patient. He feels safe to go home, denies suicidal ideation at this time. They will do regular check-in's/daily calls. He is advised to restart his medications as prescribed. As I was reviewing discharge instructions with Luis he reported that he has been having nausea/vomiting and generalized abdominal pain and chills intermittently for last 3 to 4 days. This is accompanied by constipation, which he says is new for him. He did vomit after eating lunch today and said he had 1 episode of diarrhea, no blood in stool. A rectal exam was performed to rule out fecal impaction; this was reassuring, no abnormalities noted on rectal exam. Abdomen is softly distended, generalized tenderness to palpation with normoactive bowel sounds. Moist mucous membranes. He has been able to drink without difficulty, but says that food makes him vomit. He denies history of digestive disorders. CBC showed white cell count of 20.98 DDx includes was not limited to: Medication withdrawal, anxiety, diverticulitis, partial bowel obstruction I independently interpreted the following tests: CBC notable for leukocytosis, white cell count 20.98. This is slightly increased from baseline, which is usually 15-19. CMP notable for mild hypokalemia, 3.1. Creatinine unchanged from baseline. CT abdomen/pelvis reassuring, cystic lesion on the right hepatic lobe similar to previous, no acute findings While in the emergency department Luis received Zofran with good improvement of nausea. Has been able to take p.o. shlomo lucy without difficulty Unclear etiology of abdominal pain, recommend further follow-up with PCP for evaluation/management. Reviewed discharge instructions with patient, he voices agreement with plan of care. Limited number Zofran sent for home use Imaging and Studies Imaging and Studies Study information below may be from another EMR and interpreted by another provider. Please see original notes in EMR for more complete details. EKG Image & Interpretation: EKG Interpretation Report 07/12/24 13:45 Stress Test Interpretation: No Data to Display Echo Interpretation: Echocardiogram Ultrasound 12/19/19 13:52 CT Summary: Exam(s) CT ABDOMEN PELVIS W EXAM: CT ABDOMEN PELVIS W CLINICAL HISTORY: Abd pain, vomiting, constipation x 3 days. TECHNIQUE: Imaging Protocol: Axial computed tomography images with coronal and sagittal reformatted images were created and reviewed CONTRAST MATERIAL: Intravenous: Omnipaque-350 100cc Oral: None COMPARISON: CT ABD PELVIS WITH CONTRAST from 05/08/[address] ABDOMEN PELVIS WO from 08/31/2023 FINDINGS: VISUALIZED LUNG BASES: No nodules nor pleural effusions evident. ABDOMEN: There is no ascites. LIVER: There is an exophytic cystic appearing lesion off the inferior aspect of the right hepatic lobe, posteriorly, measuring 1.9 x 1.4 by 1.5 cm, similar to previous but more prominent than on the CT scan of April 2010. GALLBLADDER/BILIARY: No obvious gallbladder pathology. CBD is not dilated. PANCREAS: No evidence of pancreatic mass nor dilatation of the pancreatic duct. SPLEEN: Spleen is not enlarged. No obvious intrasplenic lesions. Splenic and portal veins are patent. ADRENALS: There are no significant adrenal masses. KIDNEYS:Left kidney unremarkable. There is a cyst again noted in the posterior cortex of the right kidney, this benign cysts measuring approximately 1.8 x 1.7 cm. Does not require further imaging workup . No solid renal masses. No calculi. No hydronephrosis nor hydroureter. Bladder appears unremarkable. Prostate is mildly enlarged. ABDOMINAL AORTA: Abdominal aorta is not enlarged. LYMPH NODES:There is no retroperitoneal nor paraaortic adenopathy. ABDOMINAL WALL: No evidence of significant anterior abdominal wall nor inguinal hernia. GI: There is no evidence of bowel obstruction, free air, nor abscess. PELVIS: GI: No evidence of appendicitis.No evidence of sigmoid diverticulitis. LYMPH NODES: There is no intrapelvic nor inguinal adenopathy. REPRODUCTIVE: Mildly enlarged prostate gland. URINARY BLADDER: No calculi nor obvious masses evident OSSEOUS: No fractures and no significant osseous lesions. There is chronic advanced disc space narrowing at L4-5 and L5-S1 levels. No listhesis. No pars defects. No osseous lesions. Bone density is normal. IMPRESSION: 1. There is a partially exophytic 19 x 14 x 15 mm cystic appearing lesion off the inferior aspect of the right hepatic lobe which appears unchanged from CT images of 08/31/2023 and larger than it was on CT images of 05/08/2010. Can be further investigated with MRI using contrast infused liver protocol sequences. This may add specificity. 2. No other significant findings in the abdomen and pelvis. Carotid Artery US: No Data to Display Pulmonary Function Test Interpretation: No Data to Display
--- NOTE | 2024-07-12 16:59 | PDOC.CMPRO ---
Date of service: 07/12/24 Time of Service: 17:00 Care Management Progress Note Progress Note Text Progress Note Text: Per report, Santino is d/c with a safety plan. He will do daily check in's with [facility]. Santino is currently in the ED for a medical admission. Social Determinants of Health Screening Will the Patient Participate in the Screening?: Unable to obtain
--- NOTE | 2024-07-12 17:00 | DI.CT_ITS ---
Exam(s) CT ABDOMEN PELVIS W EXAM: CT ABDOMEN PELVIS W CLINICAL HISTORY: Abd pain, vomiting, constipation x 3 days. TECHNIQUE: Imaging Protocol: Axial computed tomography images with coronal and sagittal reformatted images were created and reviewed CONTRAST MATERIAL: Intravenous: Omnipaque-350 100cc Oral: None COMPARISON: CT ABD PELVIS WITH CONTRAST from 05/08/[address] ABDOMEN PELVIS WO from 08/31/2023 FINDINGS: VISUALIZED LUNG BASES: No nodules nor pleural effusions evident. ABDOMEN: There is no ascites. LIVER: There is an exophytic cystic appearing lesion off the inferior aspect of the right hepatic lob e, posteriorly, measuring 1.9 x 1.4 by 1.5 cm, similar to previous but more prominent than on the CT scan of April 2010. GALLBLADDER/BILIARY: No obvious gallbladder pathology. CBD is not dilated. PANCREAS: No evidence of pancreatic mass nor dilatation of the pancreatic duct. SPLEEN: Spleen is not enlarged. No obvious intrasplenic lesions. Splenic and portal veins are paten t. ADRENALS: There are no significant adrenal masses. KIDNEYS:Left kidney unremarkable. There is a cyst again noted in the posterior cortex of the right k idney, this benign cysts measuring approximately 1.8 x 1.7 cm. Does not require further imaging work up . No solid renal masses. No calculi. No hydronephrosis nor hydroureter. Bladder appears unrema rkable. Prostate is mildly enlarged. ABDOMINAL AORTA: Abdominal aorta is not enlarged. LYMPH NODES:There is no retroperitoneal nor paraaortic adenopathy. ABDOMINAL WALL: No evidence of significant anterior abdominal wall nor inguinal hernia. GI: There is no evidence of bowel obstruction, free air, nor abscess. PELVIS: GI: No evidence of appendicitis.No evidence of sigmoid diverticulitis. LYMPH NODES: There is no intrapelvic nor inguinal adenopathy. REPRODUCTIVE: Mildly enlarged prostate gland. URINARY BLADDER: No calculi nor obvious masses evident OSSEOUS: No fractures and no significant osseous lesions. There is chronic advanced disc space narro wing at L4-5 and L5-S1 levels. No listhesis. No pars defects. No osseous lesions. Bone density is normal. IMPRESSION: 1. There is a partially exophytic 19 x 14 x 15 mm cystic appearing lesion off the inferior aspect of the right hepatic lobe which appears unchanged from CT images of 08/31/2023 and larger than it was on CT images of 05/08/2010. Can be further investigated with MRI using contrast infused liver protocol sequences. This may add specificity. 2. No other significant findings in the abdomen and pelvis. Report called by myself to ER provider 07/12/2024 at 6:15 p.m. RADIATION DOSE DELIVERED: 504.76mGy.cm Total DLP DATA REPOSITORY: All CT scans at this facility are submitted to the National Radiology Data Registry (NRDR) Dose Index Registry (DIR) with the [employer] ([employer]). RADIATION OPTIMIZATION: All CT scans at this facility use at least one of these dose optimization te chniques: automated exposure control; mA and/or kV adjustment per patient size (includes targeted exa ms where dose is matched to clinical indication); or iterative reconstruction.
[2024-07-12 17:13] VITALS: BP 133/78; PULSE 88; RESP 16; TEMP 37.1
[2024-07-12] MEDS: Omnipaque 350 MG/ML 100 ML BTL IJ (17:26)
[2024-07-12 17:27] LABS: Lipase 46 U/L (<78)
[2024-07-12] MEDS: Ondansetron O.D.T. 4 MG TABEF PO (17:31)
[2024-07-12] MEDS: Potassium Bicarbonate/Cit AC 25 MEQ TABLET.EFF PO (19:45)
[2024-07-12] MEDS: Polyethylene Glycol 3350 17 GM PACKET PO (19:45)
[2024-07-12] MEDS: Ondansetron O.D.T. 4 MG TABEF, 3 TABS/BTL PO (19:46)
[2024-07-12 19:50] VITALS: RESP 18
--- NOTE | 2024-07-12 20:17 | PDOC.MHCN ---
Date of service: 07/12/24 Time of Service: 20:17 PHQ-9 Over the last 2 weeks, how often have you been bothered by any of the following problems? 1. Little interest or pleasure in doing things: nearly every day 2. Feeling down, depressed, or hopeless: nearly every day 3. Trouble falling or staying asleep, or sleeping too much: nearly every day 4. Feeling tired or having little energy: nearly every day 5. Poor appetite or overeating: nearly every day 6. Feeling bad about yourself - or that you are a failure or have let yourself and your family down: nearly every day 7. Trouble concentrating on things, such as reading the newspaper or watching television: nearly every day 8. Moving or speaking so slowly that other people could have noticed? - Or the opposite - being so fidgety or restless that you have been moving around a lot more than usual: nearly every day 9. Thoughts that you would be better off or of hurting yourself in some way: nearly every day Total score: 27 If you checked off any problems, how difficult have these problems made it for you to do your work, take care of things at home, or get along with other people?: extremely difficult PHQ-9 Results: Positive Source: Developed by Drs. Nicholas Boo, Pauly Urias, Isaias Pena and colleagues, with an educational demario from [employer]. Suicide Severity Rate CSSRS Have you wished you were or wished you could go to sleep and not wake up?: Yes Have you actually had any thoughts of killing yourself?: Yes CSSRS2 Have you been thinking about how you might do this?: Yes Have you had these thoughts and had some intention of acting on them?: Yes Have you started to work out or worked out the details of how to kill yourself? Do you intend to carry out this plan?: Yes CSSRS3 Have you ever done anything, started to do anything or prepared to do anything to end your life?: Yes CSSRS4 Was this within the past three months?: Yes Screening Score Total Score: 8 Screening: Positive Mental Health Emergency Note Release [facility] release signed:: Yes Reason for Visit The client is known to [facility] and has been receiving services with the AO program while he awaits to see if he is approved for [employer] services. He has been hospitalized numerous times and at least twice this year at and [facility]. He had a recent stay at the [facility] Bed. He was last seen today by his therapist and OP psychiatrist. [facility] requested an evaluation as the client reported to the ED stating he took a large sip of antifreeze on Thursday and had also since stopped taking his meds. He has since been feeling nauseous and unable to eat or sleep. In the last 2 weeks has the pt presented for ES prior to today?: Yes, presented at [facility] ED Client Information Client is: Adult Outpatient Well Housed: Yes Non Suicidal Self Injury Current: No History: No Safety Risk/Harm to Self or Others Current Ideation to Harm Self or Others: Yes to self. (intintionally took a large sip of antifreeze.) Intent: no, has no intent. Plan: no.does not have a plan. History of suicide attempt: yes,history of suicide attempt reported. Details of previous suicide attempt: As stated above this was his first. Risk: Does risk to harm exist?: No Risk: Moderate Risk Duty to warn indicated: No Asssessment/Mental Status Appearance: Disheveled Attitude: Cooperative Behavior: Unremarkable and Other (Needed to vomit after eating his food aggressively ) Speech: Normal Affect: Cogruent with mood Mood: Depressed and Anxious Thought process: Unremarkable and Other (Did not remember this clinician who assessed him on 06.30.24) Hallucinations: No Delusions: No Attention: Wandering Perception: Not impaired Orientation: Fully orientated Memory: Intact (Other than not recalling assessment on 06.30 good.) Insight: Fair Judgement: Fair Neurovegetative Symptoms Sleep: Decrease Appetitie: Decrease Interests: Decrease Energy: Decrease Libido: Not applicable Substance Use: Do you use nicotine?: No Have you used substances in the last 7 days?: No Additional Issues: Assaultive/Threatening Behavior: No Medical Concerns: No Client engaged in active self harm w/weapon: No Threatening to run away: No Child reported abuse/neglect: No Voluntarily presenting for services: Yes Domestic violence is a concern: No Extreme Psychosis or extreme behavior is present: No Impression The client is a 59-year-old, single, , male who lives independently in his apartment in [facility]. He is currently on medical leave from work and is applying for disability. He uses He/Him pronouns. All underrepresented categories were honored during this assessment. The client reported that he is overwhelmed by all the tasks he needs to do including paperwork for SSDI and that none o his supports are reaching out to include, his PMHNP, therapist, rn case manager and alleged friend. At the same time he reports he has not outreached to them either. [place] through speaking with his PMHNP he did have a shorter appointment with her today as well as his therapist and rn case manager and it was not until his appointment with his therapist and PMHNP that he disclosed his attempt on Thursday which his PMHNP reported is new for him as he has never acted on thoughts before and if he was having thoughts it was to crash his car. The client did not disclose that he had appointments with all service providers today. Initially he reported his SI to be a 8/10 and then reported that he was a 0/10 and said he wanted to safety plan home as he would feel safe there. He stated that he has a great deal of things to do and does not want to go inpatient. He is hoping for different housing and SSDI and needs to complete that paperwork. In talking with his PMHNP she stated that she was developing a who to call with what need chart for him as he reports he needs paperwork completed and he calls her etc. etc. She is trying to help direct him to who he needs to call for what need. In addition he told her that [facility] told him not to call NK and this was confirmed as he had been directed from his assessment on .1 to call his friend, that he no longer thinks of as a support, 988, and ten [facility]. It is important to note that he did not call any of these supports prior to ingesting the antifreeze on Mother's Day. The client presents sitting at his desk eating his cottage pie rapidly due to being hungry and not able to provide for himself. He expressed the need to vomit [id number] after. His affect is congruent with his mood which present as extremely anxious and depressed based on his PHQ-9 score of 27/27. He makes good eye contact and is cooperative and friendly during the assessment. Once he said he wanted to go home the safety plan was completed with daily check in calls through the remainder of the week at 7pm with [facility] ES. Resources Reosurces reviewed and given:: 988 and Other (front porch) Plan/Disposition Recommended Disposition: Community resources. Plan: The client was safety planned home with follow ups with ES (5.13-5.16) the remainder of the week. He has follow ups with the following as well:spa manager, Taylor SCHRADER by ES, therapist, Yolanda 5.19 @11am, 5..21 @ 12pm, and 63 @ 11am, and PMHNP, Tonia, 5.151 @ 2pm. Person reported agreement to plan: Yes Reports/communication Outcome discussed with: ED/Personnel
[2024-07-13 15:21] LABS: Lab Add On Test DONE
== END 2024-07-12 19:51 | disposition home or self-care (01) ==
PROVIDERS: Physician Assistant; Emergency Provider Nurse Practitioner Family; PCP Family Medicine
DX: R10.9 Unspecified abdominal pain (principal); F32.A Depression, unspecified; E87.6 Hypokalemia; K76.9 Liver disease, unspecified; R11.2 Nausea with vomiting, unspecified; F41.9 Anxiety disorder, unspecified; R45.851 Suicidal ideations
CPT/HCPCS: 99284; 99285; 36415; 36416; 82962; 00123; 80053; 80307; 82805; 83690; 93005; 96127; 74177; 80320; 80329; 81003; 81015; 83735; 84484; 85025; 93010; J3490

== ENCOUNTER 2024-07-29 08:02 | Emergency (ER) | payer OTHER, MEDICAID, SELFPAY ==
[2024-07-29 08:08] VITALS: BP 151/93; PULSE 94; RESP 18; TEMP 37.2; O2SAT 98
--- NOTE | 2024-07-29 08:15 | DI.CT_ITS ---
Exam(s) CT ABDOMEN PELVIS W EXAM: CT ABDOMEN PELVIS W CLINICAL HISTORY: lower abd pain, nausea, diarrhea. TECHNIQUE: Imaging Protocol: Axial computed tomography images with coronal and sagittal reformatted images were created and reviewed CONTRAST MATERIAL: Intravenous: Omnipaque-350 100cc Oral: None COMPARISON: CT CT ABDOMEN PELVIS W from 07/12/2024 FINDINGS: VISUALIZED LUNG BASES: No nodules nor pleural effusions evident. ABDOMEN: There is no ascites. LIVER: Previously described cystic structure exophytic off the inferior aspect of the right hepatic l obe is again noted measuring 1.9 x 1.4 x 1.5 cm, unchanged from 07/12/2024. No other focal hepatic fi ndings nor dilated intrahepatic ducts. GALLBLADDER/BILIARY: No obvious gallbladder pathology. CBD diameter upper normal. PANCREAS: No evidence of pancreatic mass nor dilatation of the pancreatic duct. SPLEEN: Spleen is not enlarged. No obvious intrasplenic lesions. Splenic and portal veins are paten t. ADRENALS: There are no significant adrenal masses. KIDNEYS:Left kidney unremarkable. There is a benign cyst in the posterior cortex of the right kidney again noted which measures 1.8 cm. Does not require further workup. No solid renal masses. No aniya culi nor hydronephrosis.. ABDOMINAL AORTA: Abdominal aorta is not enlarged. LYMPH NODES:There is no retroperitoneal nor paraaortic adenopathy. ABDOMINAL WALL: Midline anterior abdominal wall weakness but no true hernia. Anterior subcutaneous f at streaking both sides is probably related to injections. There is no drainable fluid collection at this level in the subcutaneous fat GI: There is some fluid-filled small bowel loops in the mid abdomen. These exhibit upper normal diam eters. No evidence of colitis pattern. There is no evidence of bowel obstruction, free air, nor abs cess. PELVIS: GI: No evidence of appendicitis.No evidence of sigmoid diverticulitis. LYMPH NODES: There is no intrapelvic nor inguinal adenopathy. REPRODUCTIVE: Prostate gland is moderately enlarged. Seminal vesicles unremarkable. URINARY BLADDER: No calculi nor obvious masses evident OSSEOUS: No fractures and no significant osseous lesions. Chronic degenerative disc disease lower lumbar spine. No listhesis evident. IMPRESSION: 1. There are some fluid-filled proximal and mid level small-bowel loops exhibiting upper normal diame ters and most probably consistent with an element of small bowel enteritis. No obvious colitis patte rn. No appendicitis nor diverticulitis. No evidence of obvious bowel obstruction, free air, nor abs cess. report called by myself to ER provider 07/29/2024 at 9:06 a.m. RADIATION DOSE DELIVERED: 569.6mGy.cm Total DLP DATA REPOSITORY: All CT scans at this facility are submitted to the National Radiology Data Registry (NRDR) Dose Index Registry (DIR) with the [employer] (ACR). RADIATION OPTIMIZATION: All CT scans at this facility use at least one of these dose optimization te chniques: automated exposure control; mA and/or kV adjustment per patient size (includes targeted exa ms where dose is matched to clinical indication); or iterative reconstruction.
--- NOTE | 2024-07-29 08:26 | W.ED.GENAD ---
Discharge Plan Disposition Patient Disposition: Home Discharge Details Clinical Impression: Abdominal discomfort, Nausea vomiting and diarrhea Primary Care Provider: Rajwinder Garcia ED Provider: Nunu Funez Home Meds and New Rx's Prescriptions: No Action lisinopril 30 mg tablet 30 mg PO DAILY Trulicity 4.5 mg/0.5 mL pen injector 4.5 mg subcut QWEEK Jardiance 25 mg tablet 25 mg PO DAILY insulin degludec [Tresiba FlexTouch U-200] 200 unit/mL (3 mL) insulin pen 160 unit SUBCUT DAILY Patient Comments: INJECT 100 UNITS INTO THE SKIN UNDER THE SKIN ONCE DAILY, TITRATE FOR FASTING SUGARS UNDER 140-MAX OF 160 UNITS sennosides-docusate sodium [Stool Softener-Stimulant Laxat] 8.6-50 mg tablet 1 tab-cap PO DAILY olanzapine 10 mg tablet 10 mg PO DAILY propranolol 10 mg tablet 10 mg PO BID benztropine 1 mg tablet 1 mg PO DAILY polyethylene glycol 3350 17 gram/dose powder 17 g PO DAILY escitalopram oxalate 10 mg tablet 10 mg PO DAILY trazodone 100 mg tablet 100 mg PO HS Vraylar 1.5 mg capsule 1.5 mg PO DAILY hydroxyzine HCl 10 mg/5 mL solution 10 mg PO PRN gabapentin 100 mg capsule 100 mg PO DAILY lorazepam 0.5 mg tablet 0.5 mg PO Q12H PRN Patient Comments: TAKE ONE TABLET BY MOUTH TWICE A DAY NEEDED FOR ANXIETY buspirone 10 mg tablet 10 mg PO DAILY Discharge Instructions Additional Instructions: Please call [facility] first thing this afternoon to schedule follow-up with your primary care provider to further evaluate/manage your abdominal discomfort/nausea/diarrhea. This may require referral to a specialist or additional diagnostic procedures. Your workup today was reassuring, but there is sign of inflammation in your small bowel. Please bring in the stool sample to the lab for further analysis. Stay well-hydrated, drinking plenty of fluids throughout the day. Electrolyte rich drinks such as Gatorlyte are recommended. Please eat gentle foods throughout the day. Start with BRAT diet, try toast, applesauce, rice, and bananas. You may advance diet slowly as tolerated. You may use Tylenol or ibuprofen as needed for discomfort. Return to emergency care if you develop new severe abdominal pain, uncontrollable vomiting, blood in your stool or vomit, feel like you are going to pass out, or if you are very worried and need to be rechecked again immediately Referrals: Rajwinder Garcia MD [Primary Care Provider] - Discharge Data Discharge Date/Time-TO BE ENTERED AT DEPARTURE: 07/29/24 11:08 HPI General Date/Time Provider Initiated Documentation: 07/29/24 08:10. HPI Narrative: Santino (Luis) is a 59 year old male who presents to the emergency department today for evaluation of chills, lower abdominal discomfort, nausea/retching, and diarrhea 2-3 times a day for the last 5 weeks. Says symptoms wax and wane, better some days and worse some days. He does report that he has been unable to eat due to symptoms, but is doing his best to stay well-hydrated. Denies fevers, symptoms of recent illness such as congestion, sore throat, cough, heartburn, blood in stool, change in urine output. Denies history of abdominal surgeries or abdominal diagnoses. Has had a colonoscopy in the past. Past medical history is significant for well-controlled T2DM with Tresiba and HTN. Physical exam remarkable for alert and oriented patient was in no acute distress, occasional retching during exam. Slightly tacky mucous membranes. Abdomen soft, nondistended, diffusely tender to palpation, worse in lower abdomen. Normoactive bowel sounds. No CVA tenderness. Easy work of breathing, lung sounds clear bilaterally. Normal heart sounds. D/dx includes but is not limited to: Peptic ulcer disease, gastritis/esophagitis, pancreatitis, hepatitis, diverticulitis/colitis, bowel obstruction, neoplasm, UTI I independently interpreted the following tests: CBC notable for leukocytosis, this is unchanged from baseline for patient. Mild hypokalemia, potassium 3.3, CMP otherwise unremarkable. Lipase and magnesium reassuring. CT abdomen/pelvis reassuring. Some fluid-filled small bowel loops most consistent with small bowel enteritis (inflammatory vs infectious); stool sample ordered While in the emergency department, Santino received Zofran for nausea and toradol for abdominal discomfort with good improvement of nausea. He is able to tolerate p.o. without difficulty. While in the emergency department he was unable to provide a stool sample. Recommend patient provide a stool sample for further evaluation into cause of chronic abdominal pain with nausea and diarrhea Overall workup today in the emergency department reassuring. However, patient would benefit from further evaluation on outpatient basis, possible endoscopy versus colonoscopy or H. pylori testing. Recommend close follow-up with PCP for further evaluation into symptoms. Reviewed discharge instructions with patient, including importance of follow-up with PCP, symptomatic management, and red flags indicating need for return to emergency care Related Data Home Medications ?Medication ?Instructions ?Recorded ?Confirmed empagliflozin 25 mg tablet 25 mg PO DAILY 08/31/23 07/29/24 (Jardiance) insulin degludec 200 unit/mL (3 160 unit subcut DAILY 08/31/23 07/29/24 mL) subcutaneous pen (Tresiba FlexTouch U-200 insulin) dulaglutide 4.5 mg/0.5 mL 4.5 mg subcut QWEEK 09/16/23 07/29/24 subcutaneous pen injector (Trulicity) lisinopril 30 mg tablet 30 mg PO DAILY 09/16/23 07/29/24 benztropine 1 mg tablet 1 mg PO DAILY 06/02/24 07/29/24 escitalopram oxalate 10 mg tablet 10 mg PO DAILY 06/02/24 07/29/24 olanzapine 10 mg tablet 10 mg PO DAILY 06/02/24 07/12/24 polyethylene glycol 3350 17 17 g PO DAILY 06/02/24 07/29/24 gram/dose oral powder propranolol 10 mg tablet 10 mg PO BID 06/02/24 07/29/24 sennosides 8.6 mg-docusate sodium 1 tab-cap PO DAILY 06/02/24 07/29/24 50 mg tablet (Stool Softener-Stimulant Laxative) buspirone 10 mg tablet 10 mg PO DAILY 07/12/24 07/29/24 cariprazine 1.5 mg capsule 1.5 mg PO DAILY 07/29/24 07/29/24 (Vraylar) gabapentin 100 mg capsule 100 mg PO DAILY 07/29/24 07/29/24 hydroxyzine HCl 10 mg/5 mL oral 10 mg PO PRN 07/29/24 solution lorazepam 0.5 mg tablet 0.5 mg PO Q12H PRN 07/29/24 07/29/24 trazodone 100 mg tablet 100 mg PO HS 07/29/24 07/29/24 Allergies Allergy/AdvReac Type Severity Reaction Status Date / Time No Known Allergies Allergy Verified 07/12/24 13:24 General Stated Complaint: Nausea/Vomit/Diar MARKO: 3 Review of Systems Narrative: see HPI Exam Const General: cooperative, healthy appearing, comfortable, no acute distress and well developed Nutritional Appearance: average body habitus and well nourished Orientation: alert and oriented x3 HENMT Head: normal to inspection Ears: hearing grossly normal bilaterally General nose exam: external nose normal Face and sinus: normal facial exam Resp Effort & Inspection: normal respiratory effort and able to speak in complete sentences Auscultation: clear to auscultation bilaterally Cardio Rate: regular rate Rhythm: regular rhythm GI Inspection: normal to inspection and non-distended Palpation: soft, not firm, no guarding, not rigid and tender (diffuse, lower abdomen > upper abdomen) Auscultation: normal bowel sounds Back/Spine/Pelvis Back: no CVA tenderness Course Vital Signs Vital signs: Vital Signs Temperature 37.2 C 07/29/24 08:08 Pulse 94 H 07/29/24 08:08 Respiratory Rate 18 07/29/24 08:08 Blood Pressure 151/93 H 07/29/24 08:08 Pulse Oximetry 98 07/29/24 08:08 Temperature 37.2 C 07/29/24 08:08 Temperature Source Oral 07/29/24 08:08 Pulse 94 H 07/29/24 08:08 Respiratory Rate 18 07/29/24 08:08 Blood Pressure 151/93 H 07/29/24 08:08 Pulse Oximetry 98 07/29/24 08:08 Oxygen Delivery Method Room Air 07/29/24 08:08 Oxygen Flow Rate 0 07/29/24 08:08 Medical Decision Making Imaging Data Radiologic Study: Radiologist's impression: Exam(s) CT ABDOMEN PELVIS W EXAM: CT ABDOMEN PELVIS W CLINICAL HISTORY: lower abd pain, nausea, diarrhea. TECHNIQUE: Imaging Protocol: Axial computed tomography images with coronal and sagittal reformatted images were created and reviewed CONTRAST MATERIAL: Intravenous: Omnipaque-350 100cc Oral: None COMPARISON: CT CT ABDOMEN PELVIS W from 07/12/2024 FINDINGS: VISUALIZED LUNG BASES: No nodules nor pleural effusions evident. ABDOMEN: There is no ascites. LIVER: Previously described cystic structure exophytic off the inferior aspect of the right hepatic lobe is again noted measuring 1.9 x 1.4 x 1.5 cm, unchanged from 07/12/2024. No other focal hepatic findings nor dilated intrahepatic ducts. GALLBLADDER/BILIARY: No obvious gallbladder pathology. CBD diameter upper normal. PANCREAS: No evidence of pancreatic mass nor dilatation of the pancreatic duct. SPLEEN: Spleen is not enlarged. No obvious intrasplenic lesions. Splenic and portal veins are patent. ADRENALS: There are no significant adrenal masses. KIDNEYS:Left kidney unremarkable. There is a benign cyst in the posterior cortex of the right kidney again noted which measures 1.8 cm. Does not require further workup. No solid renal masses. No calculi nor hydronephrosis.. ABDOMINAL AORTA: Abdominal aorta is not enlarged. LYMPH NODES:There is no retroperitoneal nor paraaortic adenopathy. ABDOMINAL WALL: Midline anterior abdominal wall weakness but no true hernia. Anterior subcutaneous fat streaking both sides is probably related to injections. There is no drainable fluid collection at this level in the subcutaneous fat GI: There is some fluid-filled small bowel loops in the mid abdomen. These exhibit upper normal diameters. No evidence of colitis pattern. There is no evidence of bowel obstruction, free air, nor abscess. PELVIS: GI: No evidence of appendicitis.No evidence of sigmoid diverticulitis. LYMPH NODES: There is no intrapelvic nor inguinal adenopathy. REPRODUCTIVE: Prostate gland is moderately enlarged. Seminal vesicles unremarkable. URINARY BLADDER: No calculi nor obvious masses evident OSSEOUS: No fractures and no significant osseous lesions. Chronic degenerative disc disease lower lumbar spine. No listhesis evident. IMPRESSION: 1. There are some fluid-filled proximal and mid level small-bowel loops exhibiting upper normal diameters and most probably consistent with an element of small bowel enteritis. No obvious colitis pattern. No appendicitis nor diverticulitis. No evidence of obvious bowel obstruction, free air, nor abscess. Quality:[facility] Health Related Social Needs: No Data to Display PENDING SALE TO [facility] All Active Problems (Updated 07/29/24 @ 11:00 by Nunu Collins) Nausea vomiting and diarrhea (Acute) Lesion of liver (Acute) Hypokalemia (Acute) Abdominal discomfort (Acute) Depression (Chronic) Santana sign present (Acute) Cervical spine arthritis (Acute) Paresthesia of hand, bilateral (Acute) Bilateral hand numbness (Acute) Carpal tunnel syndrome, bilateral (Acute) Superior labrum [id number] (SLAP) tear of left shoulder (Acute ~04/2022) Left shoulder pain (Acute) Medical History Mastoiditis External otitis of right ear Diabetes mellitus Obesity Quadriceps tendon rupture Constipation HTN (hypertension) Hx of adenomatous colonic polyps Rectal bleeding Prediabetes Jaw pain Heart murmur, systolic Aortic stenosis Anxiety Palpitations Tinea pedis Foot pain Surgical History Tonsillectomy Social History Smoking/Tobacco Use Status: Never Smoking risk assessment performed?: Yes Alcohol Intake: current Alcohol Intake frequency: a few times a week Alcohol type: beer and hard liquor Drug use: Never Substance use type: does not use Housing: apartment Current gender identity: male Do you feel safe at home: Yes Do you feel safe in your relationship?: Yes Additional Social history: Lives alone 05/12/24
[2024-07-29 08:44] LABS: Abs Immature Grans 0.29 10^3/uL (0.0-0.06); Absolute Eosinophil Count 0.95 10^3/uL (0.0-0.7); Eosinophils % 5.2 %; HCT 46.5 % (40.0-50.0); HGB 16.1 g/dL (13.5-17.5); Immature Grans % 1.6 %; MCH 28.5 pg (27.0-33.0); MCHC 34.6 % (32.0-36.0); MCV 82 fL (80-95); MPV 11.3 fL (8.0-11.0); Monocytes % 4.5 %; Neutrophils % 74.7 %; Platelet Count 127 10^3/uL (130-400); RBC 5.65 10^6/uL (4.36-5.78); RDW 13.8 % (11.8-14.1); RDW-SD 40.1 fL; WBC 18.25 10^3/uL (4.4-10.8)
[2024-07-29] MEDS: Normal Saline - Diluent 50 ML VIAL IJ (08:48)
[2024-07-29 08:49] LABS: Absolute Basophil Count 0.18 10^3/uL (0.0-0.2); Absolute Lymphocyte Count 2.37 10^3/uL (1.2-3.4); Absolute Monocyte Count 0.82 10^3/uL (0.1-0.8); Absolute Neutrophil Count 13.63 10^3/uL (1.2-6.7)
[2024-07-29] MEDS: Omnipaque 350 MG/ML 100 ML BTL IJ (08:49)
[2024-07-29 09:05] LABS: ALT 26 U/L (16-63); AST 14 U/L (15-37); Albumin 4.3 g/dL (3.4-5.0); Alkaline Phosphatase 87 U/L (46-116); BUN 15 mg/dL (7-18); Bilirubin, Total 0.9 mg/dL (0.2-1.0); CREATININE 1.3 mg/dL (0.70-1.30); Calcium 9.6 mg/dL (8.5-10.1); Chloride 106 mmol/L (98-107); Estimated GFR 62.89 (mL/min/1.73m2); Glucose 130 mg/dL (74-106); Lipase 37 U/L (<78); Magnesium 1.9 mg/dL (1.8-2.4); Potassium 3.3 mmol/L (3.5-5.1); Sodium 142 mmol/L (136-145); Total Protein 7.5 g/dL (6.4-8.2)
[2024-07-29 09:52] LABS: Bilirubin Negative (Negative); Blood Negative (Negative); Clarity Clear (Clear); Glucose >=1000 mg/dL (Negative); Ketones Negative (Negative); Leukocyte Esterase Negative (Negative); Nitrite Negative (Negative); Urobilinogen 0.2 mg/dL (Up to 0.2); pH 5.5 (5-8)
[2024-07-29 10:11] LABS: Bacteria Negative HPF (Negative); C & S Indicated? No; Casts Negative LPF (Negative); Crystals Negative HPF (Negative); Epithelial Cells Rare HPF (Negative); Mucus Trace (Negative); RBC Negative HPF (0-2); WBC Negative HPF (0-5)
[2024-07-29] MEDS: Famotidine 20 MG/2 ML VIAL IVP (10:27)
[2024-07-29] MEDS: Acetaminophen 325 MG TAB 650 MG PO (10:27)
[2024-07-29] MEDS: Ketorolac 15 MG/ML VIAL IVP (10:27)
[2024-07-29] MEDS: Ondansetron 4 MG/2 ML VIAL IVP (10:28)
[2024-07-29 11:09] VITALS: BP 139/88; PULSE 84; RESP 16; O2SAT 99
== END 2024-07-29 11:08 | disposition home or self-care (01) ==
PROVIDERS: Emergency Provider Nurse Practitioner Family; PCP Family Medicine
DX: R11.2 Nausea with vomiting, unspecified (principal); R19.7 Diarrhea, unspecified; R10.30 Lower abdominal pain, unspecified; E11.9 Type 2 diabetes mellitus without complications; I10 Essential (primary) hypertension; Z79.4 Long term (current) use of insulin; Z79.84 Long term (current) use of oral hypoglycemic drugs; Z79.85 Long-term (current) use of injectable non-insulin antidiabetic drugs
CPT/HCPCS: 80053; 83690; 96374; 96375; 99285; 74177; 81003; 81015; 83735; 85025; J1885; J2405; J3490

== ENCOUNTER 2024-08-19 00:35 | Outpatient (CLI) | payer MEDICAID, SELFPAY ==
--- NOTE | 2024-08-19 | DI.MRI_ITS ---
Exam(s) MR ABDOMEN WO/W EXAM: MR ABDOMEN WO/W CLINICAL HISTORY: Liver cysts, K76.89 TECHNIQUE: Multiplanar multisequence MRI of the Abdomen was performed. CONTRAST MATERIAL: IV Contrast: 20 mL of Dotarem contrast administered. CT CT ABDOMEN PELVIS W from 07/12/[address] ABDOMEN PELVIS W from 07/29/2024 FINDINGS: Lung bases: Unremarkable. Liver: An exophytic simple cyst is noted the posterior aspect of the right lobe of the liver. No abnormal enhancement. Pancreas: Unremarkable. Gallbladder and Bile Ducts: Unremarkable. Adrenals: Unremarkable. Kidneys: 16 millimeter simple cyst right kidney. Spleen: Unremarkable. Aorta: Unremarkable. Soft Tissues: Unremarkable. Bone: Unremarkable. Lymph Nodes: Unremarkable. Stomach and bowel: Unremarkable. Peritoneal cavity: Unremarkable. No evidence of ascites. IMPRESSION: Simple cysts are noted at the posterior aspect of the right lobe of the liver is well as right kidney. No follow-up recommended. DATA REPOSITORY:
[2024-08-19] MEDS: Normal Saline - Diluent 50 ML VIAL IJ (08:29)
[2024-08-19] MEDS: Gadoterate meglumine 20 ML VIAL IVP (08:29)
== END 2024-08-19 00:55 ==
PROVIDERS: PCP Family Medicine; Visit Provider Family Medicine
DX: K76.89 Other specified diseases of liver (principal)
CPT/HCPCS: 74183

== ENCOUNTER 2024-08-24 00:03 | Outpatient (CLI) | payer OTHER, MEDICAID, SELFPAY ==
--- NOTE | 2024-08-24 07:30 | DI.US_ITS ---
APPROVED REPORT EXAM: Comprehensive 2D, Doppler, and color-flow Echocardiogram Patient Location: Out-Patient Crm Manager: Carissa Sinha RDCS (AE) Indications: Aortic stenosis, Non rheumatic Other Information Study Quality: Adequate. Technically limited study due to body habitus. Conclusion Normal left ventricular chamber size. Mild concentric left ventricular hypertrophy. EF is 55%. Wall motion is normal Normal right ventricular size and function Both atria are normal in size Aortic valve is calcified and trileaflet. There is mild aortic regurgitation. There is moderate aortic stenosis. Peak gradient is 40, mean 26 mmHg. Calculated aortic valve area is 1 cm?? Mild mitral annular calcification. Mild mitral regurgitation Ascending aorta measures 4.12 cm Wall motion Left Ventricle The left ventricle is normal size. The left ventricular systolic function is normal. The left ventricular ejection fraction is within the normal range. Mild concentric left ventricular hypertrophy. There is normal LV segmental wall motion. There is no ventricular septal defect visualized. LVEF is 55%. Right Ventricle The right ventricle is normal size. The right ventricular systolic function is normal. Atria The left atrium size is normal. The right atrium size is normal. The interatrial septum is intact with no evidence for an atrial septal defect. Aortic Valve Aortic valve is calcified. Moderate aortic stenosis. Highest mean aortic valve gradient is 25.62mmHg. Peak aortic valve gradient is 40.03_mmHg. Calculated JAMA by the continuity equation is 1.0cm2. Mild aortic regurgitation. Mitral Valve Mild mitral annular calcification. No evidence of mitral valve stenosis. Mild mitral regurgitation. Tricuspid Valve The tricuspid valve is normal in structure. There is no tricuspid valve stenosis. Trace tricuspid regurgitation. Unable to assess PA pressure. Pulmonic Valve The pulmonary valve is normal in structure. There is no pulmonic valvular stenosis. Trace pulmonic regurgitation. Great Vessels The aortic root is normal in size. The ascending aorta is moderately dilated. Aortic arch is normal in caliber. IVC is normal in size and collapses >50% with inspiration. Pericardium There is no pericardial effusion. 2D Dimensions IVSD d PLAX 1.10 cm M: 0.6-1.2 Ao Root d 3.52 cm M: 3.1 - 3.7 LVPW d PLAX 1.10 cm M: 0.6 - 1.2 Ao Asc Diam d 4.12 cm M: 2.6 - 3.4 LVID d PLAX 4.55 cm M: 4.2 - 5.8 LVDs 3.30 cm M: 2.5 - 4.0 LV EF Teichholz 54.8 % FS 28.34 % LV EDV (Teich) 94.8 mL LV ESV (Teich) 42.8 mL M-Mode TAPSE 2.04 cm (M/F) >1.7 Auto EF LV EDV A4C 158.4 mL LV EDV A2C 190.0 mL LV EDV BP 173.8 mL LV ESV A4C 72.7 mL LV ESV A2C 85.3 mL LV ESV BP 79.0 mL LVEF(%) A4C 54.1 % LVEF(%) A2C 55.1 % LVEF(%) BP 54.6 % LV SV A4C 85.8 ml LV SV A2C 104.7 ml LV SV BP 94.8 ml LV CO A4C 6.9 L/min LV CO A2C 8.5 L/min LV CO BP 7.7 L/min HR A4C 80.00 BPM HR A2C 81.27 BPM LV EDV Index (BP) LA Volume LA Length A4C 4.7 cm LA Length A2C 5.7 cm LA Area A4C s 18.56 cm2 LA Area A2C s 22.91 cm2 LA Vol A4C A-L 62.03 mL LA Vol A2C A-L 78.04 mL LA Vol Biplane A-L 76.6 mL LA Vol/BSA A4C A-L LA Vol/BSA A2C A-L LA Vol/BSA BP A-L 31.9 mL/m2 LA Vol A4C MOD 55.9 mL LA Vol A2C MOD 71.0 mL LA Vol BP MOD 69.1 mL RA Volume RA Area A4C 11.1 cm2 RA ESV A4C (A-L) 25.1mL RA Vol/BSA A4C A-L RA Length A4C 4.2 cm RA ESV A4C (MOD) 22.1mL LV Diastology MV E' medial 0.061 (>0.07 m/s) MV E Vmax 0.79 (0.4-1.3 m/s) MV E/E' MED 12.87 (<14) MV A Vmax 1.15 (0.4-1.3 m/s) MV E' lateral 0.087 (>0.1 m/s) E/A Ratio 0.7 MV E/E' LAT 9.01 (<14) MV E' Average 0.074 m/s MV E/E'(average) 10.60 Aortic Valve AoV Vmax 3.16 m/s LVOT Vmax 0.96 m/s AoV Peak Grad 50.4 mmHg LVOT Peak Grad 3.7 mmHg AoV Area (Vmax) 0.97 cm2 LVOT VTI 0.195 m AoV VTI 0.709 m LVOT Mean Grad 2.4 mmHg AoV Mean Arnie. 2.42 m/s LVOT SV 62.15 mL AoV Mean Grad 25.6 mmHg LVOT Diam s 2.00 cm AoV Area (VTI) 0.88 cm2 AV Regurg Peak Gr. 40.03 mmHg Velocity Ratio 0.30 AR Decel Haakon 1.1m/sec2 AR DT 3639 msec AR PHT 1055 msec AR Vmax 3.90 m/s Mitral Valve MV DT 322 (160-240 msec) MV Vmax TIPS 1.32 m/s MV Mean Grad 3.0 (<2mmHg) MV VTI 0.323 m Pulmonary Valve PV Vmax 1.15 (0.5-1.5 m/s) RVOT Vmax 0.63 m/s PV Peak Grad 5.3 mmHg RVOT Peak Gr. 1.6 mmHg PV Mean Arnie 0.73 m/s RVOT VTI 0.136 m PV Mean Grad 2.5 mmHg RVOT Mean Gr. 1.1 mmHg Tricuspid Valve RA Pressure 3.00 mmHg TV S' 0.13 m/s
== END 2024-08-24 00:23 ==
LOC: DI 00:04
PROVIDERS: PCP Family Medicine; Visit Provider Internal Medicine Cardiovascular Disease
DX: I35.0 Nonrheumatic aortic (valve) stenosis (principal)
CPT/HCPCS: 93306

== ENCOUNTER 2024-08-24 17:09 | Emergency (ER) | payer MEDICAID, SELFPAY ==
[2024-08-24 17:17] VITALS: BP 176/110; PULSE 100; RESP 18; TEMP 36.7; O2SAT 96
[2024-08-24] MEDS: Magic Mouthwash 119 ML BTL 10 ML MM (17:50)
[2024-08-24 17:55] VITALS: PULSE 99
[2024-08-24 17:56] VITALS: BP 176/110; PULSE 99; RESP 18; TEMP 36.7; O2SAT 96
--- NOTE | 2024-08-24 18:03 | W.ED.GENAD ---
Discharge Plan Disposition Patient Disposition: Home Discharge Details Clinical Impression: Stomatitis Primary Care Provider: Rajwinder Garcia ED Provider: Nunu Funez Home Meds and New Rx's Prescriptions: New Magic Mouthwash (diphenhydramine 12.5 mg/5mL:viscous lidocaine 2%:maalox 1:1:1 ratio) 10 ml mucous membrane Q6H PRN PRNQty: 120 0RF Rx Instructions: Swish, garlge, and spit 10 mL (2 tsp) every 6 hours as needed. Shake well before using. No Action lisinopril 30 mg tablet 30 mg PO DAILY Trulicity 4.5 mg/0.5 mL pen injector 4.5 mg subcut QWEEK Jardiance 25 mg tablet 25 mg PO DAILY insulin degludec [Tresiba FlexTouch U-200] 200 unit/mL (3 mL) insulin pen 160 unit SUBCUT DAILY Patient Comments: INJECT 100 UNITS INTO THE SKIN UNDER THE SKIN ONCE DAILY, TITRATE FOR FASTING SUGARS UNDER 140-MAX OF 160 UNITS sennosides-docusate sodium [Stool Softener-Stimulant Laxat] 8.6-50 mg tablet 1 tab-cap PO DAILY olanzapine 10 mg tablet 10 mg PO DAILY propranolol 10 mg tablet 10 mg PO BID benztropine 1 mg tablet 1 mg PO DAILY polyethylene glycol 3350 17 gram/dose powder 17 g PO DAILY escitalopram oxalate 10 mg tablet 10 mg PO DAILY trazodone 100 mg tablet 100 mg PO HS Vraylar 1.5 mg capsule 1.5 mg PO DAILY hydroxyzine HCl 10 mg/5 mL solution 10 mg PO PRN gabapentin 100 mg capsule 100 mg PO DAILY lorazepam 0.5 mg tablet 0.5 mg PO Q12H PRN Patient Comments: TAKE ONE TABLET BY MOUTH TWICE A DAY NEEDED FOR ANXIETY buspirone 10 mg tablet 10 mg PO DAILY Discharge Instructions Instructions: Mouth Sores (DC) Additional Instructions: Please call your primary care provider's office Thursday to schedule follow-up appointment if you are not feeling significantly better Your mouth sores are likely caused by a viral illness. You may use the Magic mouthwash provided, swishing and spitting 2 teaspoon (10 ML) every 6 hours as needed. I recommend that you do this before eating. Stay well-hydrated throughout the day. Avoid anything spicy/greasy/fried, as this can be irritating to the mouth. Return to emergency care if develop new fever/chills, difficulty swallowing, swelling inside your mouth, voice change, or if you are very worried and need to be rechecked again immediately. Referrals: Rajwinder Garcia MD [Primary Care Provider, Medicine] HPI General Date/Time Provider Initiated Documentation: 08/24/24 17:17. HPI Narrative: Santino is a 59-year-old male who presents to the emergency department today for evaluation of oral discomfort for 6-7 days. Oral discomfort extends from roof of mouth to gums, tongue, and throat. Reports facial sores and pimples since onset as well. No contact with sick individuals, no history of cold sores. No systemic symptoms (fever, chills, headaches, dizziness). Difficulty consuming food and beverages due to discomfort, but says he has been staying well-hydrated. No GI symptoms (nausea, vomiting, abdominal pain). Normal bowel and bladder function. Symptoms worsen with hot or spicy foods. Tylenol and ibuprofen ineffective. Related Data Home Medications ?Medication ?Instructions ?Recorded ?Confirmed empagliflozin 25 mg tablet 25 mg PO DAILY 08/31/23 08/24/24 (Jardiance) insulin degludec 200 unit/mL (3 160 unit subcut DAILY 08/31/23 08/24/24 mL) subcutaneous pen (Tresiba FlexTouch U-200 insulin) dulaglutide 4.5 mg/0.5 mL 4.5 mg subcut QWEEK 09/16/23 08/24/24 subcutaneous pen injector (Trulicity) lisinopril 30 mg tablet 30 mg PO DAILY 09/16/23 08/24/24 benztropine 1 mg tablet 1 mg PO DAILY 06/02/24 08/24/24 Held on 08/24/24. Instructions: Pt Stopped/Never Started escitalopram oxalate 10 mg tablet 10 mg PO DAILY 06/02/24 08/24/24 Held on 08/24/24. Instructions: Pt Stopped/Never Started olanzapine 10 mg tablet 10 mg PO DAILY 06/02/24 08/24/24 Held on 08/24/24. Instructions: Pt Stopped/Never Started polyethylene glycol 3350 17 17 g PO DAILY 04/03/25 06/25/25 gram/dose oral powder Held on 08/24/24. Instructions: Pt Stopped/Never Started propranolol 10 mg tablet 10 mg PO BID 06/02/24 08/24/24 Held on 08/24/24. Instructions: Pt Stopped/Never Started sennosides 8.6 mg-docusate sodium 1 tab-cap PO DAILY 06/02/24 08/24/24 50 mg tablet (Stool Softener-Stimulant Laxative) buspirone 10 mg tablet 10 mg PO DAILY 07/12/24 08/24/24 Held on 08/24/24. Instructions: Pt Stopped/Never Started cariprazine 1.5 mg capsule 1.5 mg PO DAILY 07/29/24 08/24/24 (Vraylar) Held on 08/24/24. Instructions: Pt Stopped/Never Started gabapentin 100 mg capsule 100 mg PO DAILY 07/29/24 08/24/24 Held on 08/24/24. Instructions: Pt Stopped/Never Started hydroxyzine HCl 10 mg/5 mL oral 10 mg PO PRN 07/29/24 solution Held on 08/24/24. Instructions: Pt Stopped/Never Started lorazepam 0.5 mg tablet 0.5 mg PO Q12H PRN 07/29/24 08/24/24 Held on 08/24/24. Instructions: Pt Stopped/Never Started trazodone 100 mg tablet 100 mg PO HS 07/29/24 08/24/24 Magic Mouthwash (diphenhydramine 10 ml mucous membrane Q6H PRN PRN 08/24/24 12.5 mg/5mL:viscous lidocaine #120 mL 2%:maalox 1:1:1 ratio) Previous Rx's ?Medication ?Instructions ?Recorded Magic Mouthwash (diphenhydramine 10 ml mucous membrane Q6H PRN PRN 08/24/24 12.5 mg/5mL:viscous lidocaine #120 mL 2%:maalox 1:1:1 ratio) Allergies Allergy/AdvReac Type Severity Reaction Status Date / Time No Known Allergies Allergy Verified 08/24/24 17:14 General Stated Complaint: DentalOral MARKO: 4 Exam Narrative Exam Narrative: General Appearance: Normal. Alert and oriented, no acute distress. Vital signs: Within normal limits. HEENT: Multiple small lesions consistent with aphthous ulcers on roof of mouth and gums. Mild soreness on cheeks and inside lips. No intraoral swelling or swelling under tongue. Clear voice. Moist mucous membranes. No cervical or submandibular lymphadenopathy. Skin: Red and comedones noted to right perioral area Psychiatric: Normal. Course Vital Signs Vital signs: Vital Signs Temperature 36.7 C 08/24/24 17:17 Pulse 100 H 08/24/24 17:17 Respiratory Rate 18 08/24/24 17:17 Blood Pressure 176/110 H 08/24/24 17:17 Pulse Oximetry 96 08/24/24 17:17 Temperature 36.7 C 08/24/24 17:56 Temperature Source Oral 08/24/24 17:56 Pulse 99 H 08/24/24 17:56 Respiratory Rate 18 08/24/24 17:56 Blood Pressure 176/110 H 08/24/24 17:56 Blood Pressure Position Sitting 08/24/24 17:56 Pulse Oximetry 96 08/24/24 17:56 Oxygen Delivery Method Room Air 08/24/24 17:56 Oxygen Flow Rate 0 08/24/24 17:56 Pain Level 8 08/24/24 17:56 Medical Decision Making Initial Assessment: Aphthous ulcers in mouth (roof, gums, tongue, throat) with facial sores and pimples. Overall reassuring examination. Patient does have tachycardia, this is consistent with anxiety and patient does have a history of elevated heart rate with previous ED visits ED Course: - Oral exam performed. - Magic Mouthwash administered. - Shlomo lucy provided. Final Assessment: Oral exam revealed small lesions on roof of mouth and gums, consistent with viral stomatitis. Magic Mouthwash administered for numbing, shlomo lucy for hydration. No red flags concerning for systemic illness or dehydration. Clinical Impression: - Viral stomatitis. Disposition: - Discharge home. - Follow-Up: Call PCP if symptoms not improved by Thursday or Thursday. Patient Education: Avoid crunchy or spicy foods, use Magic Mouthwash before meals, maintain hydration. Patient consented to the use of MILLIE PFSH All Active Problems (Updated 08/24/24 @ 17:37 by Nunu Collins) Stomatitis (Acute) Nausea vomiting and diarrhea (Acute) Santana sign present (Acute) Cervical spine arthritis (Acute) Paresthesia of hand, bilateral (Acute) Bilateral hand numbness (Acute) Carpal tunnel syndrome, bilateral (Acute) Superior labrum [id number] (SLAP) tear of left shoulder (Acute ~04/2022) Left shoulder pain (Acute) Medical History Mastoiditis External otitis of right ear Diabetes mellitus Obesity Quadriceps tendon rupture Constipation HTN (hypertension) Hx of adenomatous colonic polyps Rectal bleeding Prediabetes Jaw pain Heart murmur, systolic Aortic stenosis Anxiety Palpitations Tinea pedis Foot pain Surgical History Tonsillectomy Social History Smoking/Tobacco Use Status: Never Smoking risk assessment performed?: Yes Alcohol Intake: current Alcohol Intake frequency: a few times a week Alcohol type: beer and hard liquor Drug use: Never Substance use type: does not use Housing: apartment Current gender identity: male Do you feel safe at home: Yes Do you feel safe in your relationship?: Yes Additional Social history: Lives alone 05/12/24
== END 2024-08-24 17:58 | disposition home or self-care (01) ==
PROVIDERS: Emergency Provider Nurse Practitioner Family; PCP Family Medicine
DX: K12.1 Other forms of stomatitis (principal); E11.9 Type 2 diabetes mellitus without complications; I10 Essential (primary) hypertension; Z79.84 Long term (current) use of oral hypoglycemic drugs; Z79.4 Long term (current) use of insulin
CPT/HCPCS: 99283

== ENCOUNTER 2024-11-21 07:21 | Outpatient (CLI) | payer MEDICAID, SELFPAY ==
--- NOTE | 2024-11-21 | DI.NM_ITS ---
APPROVED REPORT Exam: Exercise Treadmill Patient Location: Out-Patient Room/Bed: Stress Nurse: Tomasa Vasquez RN Ordering Provider:VANESSA FRANKLIN, Contact Number: [phone] BMI: 34.44 Baseline Rhythm: Sinus Rhythm Indications: AGUILAR Medical History Medical History: DM, obesity, HTN, heart murmur, aortic stenosis, anxiety, palpitations Cardiac Medications: Poor historian, patient did not bring in medication list despite nurse request. Unable to confirm medications. Allergies: NKA Cardiac Risk Factors: Family hx, HTN, diabetes, obesity Previous Cardiac Procedures: None Pretest Chest Pain Characteristics: None Exercise History: Sedentary Physical Disabilities: None Lung Sounds: Clear to auscultation Heart Sounds: Regular Stress Test Details Test: Exercise stress testing was performed using a Juan Pablo protocol. Nuclear Acquisition: Rest Tc-99m/Stress Tc-99m 1 day Rest Isotope: Tc-99m Sestamibi. Dose: 11.0 Date: 11/21/2024 Injection Time: 0915 Stress Isotope: Tc-99m Sestamibi. Dose: 36.0 Date: 11/21/2024 Injection Time: 1050 HR Resting HR Supine: 87 bpm Max Heart Rate (APMHR): 160 bpm Resting HR Standin bpm Target HR (85% APMHR): 136 bpm Max HR Achieved: 145 bpm % of APMHR: 91 Recovery HR: 99 bpm HR response to stress: Normal HR response to stress BP Resting BP Supine: 136/54 mmHg Resting BP Standin/86 mmHg Max BP: 180/80 mmHg Recovery BP: 142/82 mmHg BP response to stress: Normal blood pressure response to stress. ECG Resting ECG: Sinus Rhythm Stress ECG: Sinus Tachycardia ST Change: No significant ST segment changes noted Recovery ECG: Sinus Rhythm Recovery ST Change: No significant ST segment changes noted Recovery Arrhythmia: Occasional PAC's, occasional PVC's Clinical Reason for Termination: Target HR Achieved, Fatigue, Mod SOB Stress Symptoms: Fatigue, Chest pain 09/08, mod SOB Exercise duration: 05 min28 sec Highest Stage Reached: Stage 2: 2.5 mph at 12% grade. Exercise capacity: 7.05 METs Angina Score: Non-Limiting Rate Pressure Product: 63920 Stress ECG Conclusion 1. Resting electrocardiogram was normal 2. Patient exercised on the Juan Pablo protocol and completed workload of 7 METS 3. Normal heart rate and blood pressure response to exercise. The patient achieved 91% of maximal predicted heart rate for age 4. There was no electrocardiographic evidence of myocardial ischemia 5. There were no significant dysrhythmias 6. See MPI report Stress Test Summary STAGE Time (mins) Speed (mph) Grade (%) HR BP SpO2 SYMPTOMS METS Supine 87 136/84 97% Standing 103 118/86 1 3 1.7 10 143 Mod SOB, general fatigue, 7/10 chest pain 4.5 1 min recovery 126 180/80 97% 3 min recovery 103 156/84 6 min recovery 99 142/82 98% All symptoms resolved. Patient met target HR and requested to stop r/t generalized fatigue and mod SOB. Did c/o 7/10 chest pain which immediately resolved when exercise stopped. All symptoms resolved at test end and patient proceeded to imaging ambulatory in no apparent distress. MPI Conclusion Myocardial perfusion was normal. There was no ischemia or evidence of prior infarction Calculated EF was 30% but visually it appeared closer to 50%. There were no wall motion abnormalities
== END 2024-11-21 07:41 ==
LOC: DI 07:21
PROVIDERS: PCP Family Medicine; Visit Provider Internal Medicine Cardiovascular Disease
DX: R06.09 Other forms of dyspnea (principal)
CPT/HCPCS: 78452; 93017

== ENCOUNTER 2024-12-30 03:44 | Outpatient (CLI) | payer MEDICAID, SELFPAY ==
[2024-12-30 16:33] LABS: Lithium 0.5 mmol/L (0.6-1.2)
== END 2024-12-30 03:45 | disposition home or self-care (01) ==
PROVIDERS: PCP Family Medicine; Visit Provider Registered Nurse
DX: F33.2 Major depressive disorder, recurrent severe without psychotic features (principal); F34.0 Cyclothymic disorder; F51.05 Insomnia due to other mental disorder; F42.2 Mixed obsessional thoughts and acts; F41.1 Generalized anxiety disorder; Z51.81 Encounter for therapeutic drug level monitoring
CPT/HCPCS: 36415; 80178

== ENCOUNTER 2025-01-18 18:16 | Outpatient (REF) | payer MEDICAID, SELFPAY ==
[2025-01-18 19:11] LABS: Lithium 0.50 mmol/L (0.60-1.20)
== END 2025-01-18 18:17 | disposition home or self-care (01) ==
LOC: LBN 18:16
PROVIDERS: PCP Family Medicine; Visit Provider Registered Nurse
DX: F33.2 Major depressive disorder, recurrent severe without psychotic features (principal); Z51.81 Encounter for therapeutic drug level monitoring
CPT/HCPCS: 80178